=== PATIENT | male | born 1950 | race Caucasian/White ===

== ENCOUNTER 2018-02-01 10:30 | Inpatient (IN) | payer MEDICARE, MEDICAID ==
[~2018-02-01] VITALS: Ht 182.9 cm; Wt 79.3 kg
[2018-02-01 11:18] LABS: BASO # 0.1 x10^3/uL (0.0-0.2); BASO % 1 % (0-3); EOS # 0.6 x10^3/uL (0.0-0.7); EOS % 10 % (0-3); HEMATOCRIT 39.7 % (39.0-53.0); HEMOGLOBIN 13.1 g/dL (13.0-17.5); LYMPH # 2.1 x10^3/uL (1.0-4.8); LYMPH % 33 % (24-48); MEAN CORPUSCULAR HEMOGLOBIN 31 pg (25-35); MEAN CORPUSCULAR HGB CONC 33 g/dL (31-37); MEAN CORPUSCULAR VOLUME 94 fL (79-100); MONO # 0.9 x10^3/uL (0.0-1.1); MONO % 14 % (0-9); NEUT # 2.8 x10^3uL (1.8-7.7); NEUT % 43 % (31-73); PLATELET COUNT 167 x10^3/uL (140-400); RED BLOOD COUNT 4.22 x10^6/uL (4.30-5.70); RED CELL DISTRIBUTION WIDTH 13.4 % (11.5-14.5); WHITE BLOOD COUNT 6.6 x10^3/uL (4.0-11.0)
[2018-02-01 11:23] LABS: ALBUMIN 3.4 g/dL (3.4-5.0); CALCIUM 8.9 mg/dL (8.5-10.1); CREATININE 1.2 mg/dL (0.7-1.3); GFR 60.2; MAGNESIUM 2.3 mg/dL (1.8-2.4); POTASSIUM 4.2 mmol/L (3.5-5.1); TOTAL BILIRUBIN 0.3 mg/dL (0.2-1.0); TOTAL PROTEIN 6.7 g/dL (6.4-8.2)
[2018-02-01 11:32] LABS: AMORPHOUS SEDIMENT,UR PRESENT /HPF; BACTERIA,URINE 0 /HPF (0-FEW); BILIRUBIN,URINE NEG (NEG); CLARITY,URINE CLEAR; COLOR,URINE AMBER; GLUCOSE,URINE NEG (NEG); NITRITE,URINE NEG (NEG); RBC,URINE 0 /HPF (0-2); SQUAMOUS EPITHELIAL CELL,UR OCC /LPF; UROBILINOGEN,URINE 1 mg/dL (0.2 mg/dL); WBC,URINE 0 /HPF (0-4)
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
[2018-02-01] MEDS ORDERED: MAGNESIUM HYDROXIDE 2,400 MG/30 ML ORAL.SUSP. PO PRN (12:15)
[2018-02-01] MEDS ORDERED: ACETAMINOPHEN 325 MG TABLET PO PRN (12:15)
[2018-02-01] MEDS ORDERED: METHYL SALICYLATE/MENTHOL TOPICAL OINTMENT 29GM TUBE. TP PRN (12:15)
[2018-02-01] MEDS ORDERED: MAG HYDROX/AL HYDROX/SIMETH 30 ML ORAL.SUSP PO PRN (12:15)
[2018-02-01] MEDS ORDERED: LOXA10CA PO (13:03)
[2018-02-01] MEDS ORDERED: ASPI325T8 PO (13:03)
[2018-02-01] MEDS ORDERED: HALO5AMP2 IM (13:03)
[2018-02-01] MEDS ORDERED: LORA2VIA6 IM (13:03)
[2018-02-01] MEDS ORDERED: DOCU100C28 PO (13:03)
[2018-02-01] MEDS ORDERED: LORA-254 PO (13:03)
[2018-02-01] MEDS ORDERED: METO25TA4 PO (13:03)
[2018-02-01] MEDS ORDERED: CLON0.1T PO (13:03)
[2018-02-01] MEDS ORDERED: TRAZ-86 PO (13:03)
[2018-02-01] MEDS ORDERED: THIA100T8 PO (13:03)
[2018-02-01] MEDS ORDERED: MULT1TAB52 PO (13:03)
[2018-02-01] MEDS ORDERED: DIVA500T17 PO ×2 (13:03)
[2018-02-01] MEDS ORDERED: LEVO25TA4 PO (13:03)
[2018-02-01] MEDS ORDERED: NICO1PAT25 TD (13:03)
[2018-02-01] MEDS ORDERED: FLUD0.1T PO (13:03)
[2018-02-01 13:18] VITALS: BP 133/85
[2018-02-01] MEDS ORDERED: LORazepam 0.5 MG TABLET PO PRN (13:30)
--- NOTE | 2018-02-01 13:59 | EKG ---
[address] [address] Test Date: 2018-02-01 Test Time: 10:43:01 Pat Name: HUANG SHARMA Department: Room: [facility] 1 Gender: M [employer] Cle[employer] Teacher: : 1950 Requested By: MEGHAN GOMEZ Order Number: [id number] Reading MD: Rojas Lund MD Measurements Intervals [place] Rate: 47 P: -41 [place]: 186 QRS: -34 QRSD: 90 T: 75 QT: 466 QTc: 412 Interpretive Statements SINUS BRADYCARDIA NON-SPECIFIC ST/T CHANGES Electronically Signed On 02-02-2018 10:44:33 CDT by Rojas Lund MD
[2018-02-01] MEDS: LOXAPINE SUCCINATE 5 MG CAPSULE PO SCH ×2 (15:42→20:15)
[2018-02-01 16:26] VITALS: BP 128/83
[2018-02-01] MEDS: METOPROLOL TART IMMED RELEASE 25 MG TABLET PO SCH (20:16)
[2018-02-01] MEDS: traZODone 100 MG TABLET. PO SCH (20:16)
[2018-02-01] MEDS: cloNIDine HCL 0.1 MG TABLET PO SCH (20:17)
[2018-02-01] MEDS ORDERED: DIVALPROEX ER 500 MG TAB.ER.24H PO SCH (21:00)
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
--- NOTE | 2018-02-01 23:18 | PDOC ---
Exam Note: Dionicio Note: Please also refer to the separate dictated note~for this date of service dictated separately.~Patient seen individually. Discussed the patient with Nursing staff reviewed the chart.~Reviewed interim history and current functioning. Reviewed vital signs,~Labs/ Radiology~and current medications noted below. Continue current treatment with the changes noted in the dictated addendum note Assessment: Vital Signs: Vital Signs Date Time Temp Pulse Resp B/P (MAP) Pulse Ox O2 Delivery O2 Flow Rate FiO2 02/01/18 20:17 58 128/83 02/01/18 16:26 98.1 16 97 02/01/18 11:52 Room Air Labs: Laboratory Tests Test 02/01/18 10:55 02/01/18 11:10 White Blood Count 6.6 x10^3/uL (4.0-11.0) Red Blood Count 4.22 x10^6/uL (4.30-5.70) L Hemoglobin 13.1 g/dL (13.0-17.5) Hematocrit 39.7 % (39.0-53.0) Mean Corpuscular Volume 94 fL (79-100) Mean Corpuscular Hemoglobin 31 pg (25-35) Mean Corpuscular Hemoglobin Concent 33 g/dL (31-37) Red Cell Distribution Width 13.4 % (11.5-14.5) Platelet Count 167 x10^3/uL (140-400) Neutrophils (%) (Auto) 43 % (31-73) Lymphocytes (%) (Auto) 33 % (24-48) Monocytes (%) (Auto) 14 % (0-9) H Eosinophils (%) (Auto) 10 % (0-3) H Basophils (%) (Auto) 1 % (0-3) Neutrophils # (Auto) 2.8 x10^3uL (1.8-7.7) Lymphocytes # (Auto) 2.1 x10^3/uL (1.0-4.8) Monocytes # (Auto) 0.9 x10^3/uL (0.0-1.1) Eosinophils # (Auto) 0.6 x10^3/uL (0.0-0.7) Basophils # (Auto) 0.1 x10^3/uL (0.0-0.2) Sodium Level 145 mmol/L (136-145) Potassium Level 4.2 mmol/L (3.5-5.1) Chloride Level 107 mmol/L (98-107) Carbon Dioxide Level 32 mmol/L (21-32) Anion Gap 6 (6-14) Blood Urea Nitrogen 31 mg/dL (8-26) H Creatinine 1.2 mg/dL (0.7-1.3) Estimated GFR (Cockcroft-Gault) 60.2 BUN/Creatinine Ratio 26 (6-20) H Glucose Level 84 mg/dL (70-99) Calcium Level 8.9 mg/dL (8.5-10.1) Magnesium Level 2.3 mg/dL (1.8-2.4) Total Bilirubin 0.3 mg/dL (0.2-1.0) Aspartate Amino Transferase (AST) 21 U/L (15-37) Alanine Aminotransferase (ALT) 20 U/L (16-63) Alkaline Phosphatase 49 U/L (46-116) Total Protein 6.7 g/dL (6.4-8.2) Albumin 3.4 g/dL (3.4-5.0) Albumin/Globulin Ratio 1.0 (1.0-1.7) Urine Collection Type Unknown Urine Color Irma Urine Clarity Clear Urine pH 7.0 Urine Specific [place] 1.020 Urine Protein Neg (NEG-TRACE) Urine Glucose (UA) Neg mg/dL (NEG) Urine Ketones (Stick) Neg mg/dL (NEG) Urine Blood Neg (NEG) Urine Nitrite Neg (NEG) Urine Bilirubin Neg (NEG) Urine Urobilinogen Dipstick 1 mg/dL (0.2 mg/dL) Urine Leukocyte Esterase Neg (NEG) Urine RBC 0 /HPF (0-2) Urine WBC 0 /HPF (0-4) Urine Squamous Epithelial Cells Occ /LPF Urine Amorphous Sediment Present /HPF Urine Bacteria 0 /HPF (0-FEW) Urine Mucus Slight /LPF Current Medications: Meds: Current Medications Acetaminophen (Tylenol) 650 mg PRN Q6HRS PRN PO PAIN / TEMP; Start 02/01/18 at 12:15 Multi-Ingredient Ointment (Analgesic [place]) 1 king PRN QID PRN TP MUSCLE PAIN; Start 02/01/18 at 12:15 Al Hydroxide/Mg Hydroxide (Mylanta Plus Xs) 15 ml PRN AFTMEALHC PRN PO DYSPEPSIA; Start 02/01/18 at 12:15 Magnesium Hydroxide (Milk Of Magnesia) 2,400 mg PRN QHS PRN PO CONSTIPATION; Start 02/01/18 at 12:15 Influenza Virus Vaccine (Afluria Trivalent [id number] Syringe) 0.5 ml ONCE ONCE VAX IM ; Start 02/02/18 at 09:00; Stop 02/02/18 at 09:01 Aspirin (Davi Aspirin) 325 mg DAILY PO ; Start 02/02/18 at 09:00 Clonidine HCl (Catapres) 0.1 mg QHS PO Last administered on 02/01/18at 20:17; Start 02/01/18 at 21:00 Fludrocortisone Acetate (Florinef) 0.1 mg DAILY PO ; Start 02/02/18 at 09:00 Lorazepam (Ativan) 0.5 mg PRN Q4HRS PRN PO ANXIETY / AGITATION; Start at 13:30 Metoprolol Tartrate (Lopressor) 25 mg BID PO Last administered on 02/01/18at 20 :16; Start 02/01/18 at 21:00 Divalproex Sodium (Depakote Er) 1,500 mg QHS PO Last administered on at 20:16; Start 02/01/18 at 21:00 Divalproex Sodium (Depakote Er) 750 mg DAILY PO ; Start 02/02/18 at 09:00 Docusate Sodium (Colace) 100 mg DAILY PO ; Start 02/02/18 at 09:00 Levothyroxine Sodium (Synthroid) 25 mcg DAILY06 PO ; Start 02/02/18 at 06:00 Loxapine Succinate (Loxitane) 10 mg TID PO Last administered on 02/01/18at 20: 15; Start 02/01/18 at 14:00 Nicotine (Nicoderm Cq 14mg) 1 patch DAILY TD ; Start 02/02/18 at 09:00 Thiamine HCl (Vitamin B-1) 100 mg DAILY PO ; Start 02/02/18 at 09:00 Trazodone HCl (Desyrel) 250 mg QHS PO Last administered on 02/01/18at 20:16; Start 02/01/18 at 21:00 Active Scripts Active Reported Haldol (Haloperidol Lactate) 5 Mg/1 Ml Ampul 5 Mg IM PRN Q6HRS PRN Docusate Sodium 100 Mg Capsule 100 Mg PO DAILY Trazodone Hcl 100 Mg Tablet 250 Mg PO QHS Loxapine (Loxapine Succinate) 10 Mg Capsule 10 Mg PO TID Ativan (Lorazepam) 1 Mg Tablet 0.5 Mg PO PRN Q4HRS PRN Ativan (Lorazepam) 2 Mg/1 Ml Vial 0.25 Ml IM PRN Q4HRS PRN Levothyroxine Sodium 25 Mcg Tablet 25 Mcg PO DAILYAC Divalproex Sodium Er (Divalproex Sodium) 500 Mg Tab.er.24h 1,500 Mg PO QHS Divalproex Sodium Er (Divalproex Sodium) 500 Mg Tab.er.24h 750 Mg PO DAILY Thiamine Hcl 100 Mg Tablet 100 Mg PO DAILY Multivitamins (Multivitamin) 1 Each Tablet 1 Each PO NICODERM CQ 14mg (Nicotine) 1 Each Patch.td24 1 Patch TD DAILY Metoprolol Tartrate 25 Mg Tablet 25 Mg PO BID Fludrocortisone Acetate 0.1 Mg Tablet 0.1 Mg PO DAILY Clonidine Hcl 0.1 Mg Tablet 0.1 Mg PO QHS Aspirin 325 Mg Tablet 325 Mg PO DAILY I have reviewed the current psychotropics carefully including drug interactions. Risk benefit ratio favors no change other than as noted in my dictated progress note. Diagnosis: Problems: (1) Sinus bradycardia (2) Anemia (3) Alcoholic dementia (4) Medical clearance for psychiatric admission AALIYAH MOORE MD Feb 01, 2018 23:18
[2018-02-02 06:12] VITALS: BP 143/79
[2018-02-02] MEDS: LEVOTHYROXINE 25 MCG TABLET. PO SCH (06:37)
[2018-02-02 07:13] LABS: VAL ACID 54 mcg/mL (50-100)
[2018-02-02] MEDS: METOPROLOL TART IMMED RELEASE 25 MG TABLET PO SCH ×2 (08:58→19:24)
[2018-02-02] MEDS: LOXAPINE SUCCINATE 5 MG CAPSULE PO SCH ×2 (08:58→19:25)
[2018-02-02] MEDS ORDERED: NICOTINE 14MG PATCH. TD SCH (09:00)
[2018-02-02] MEDS ORDERED: DIVALPROEX ER 250 MG TAB.ER.24H. PO SCH (09:00)
[2018-02-02] MEDS: DOCUSATE SODIUM 100 MG CAPSULE PO SCH (09:01)
[2018-02-02] MEDS: FLUDROCORTISONE 0.1 MG TABLET PO SCH (09:01)
[2018-02-02] MEDS: THIAMINE 100 MG TABLET. PO SCH (09:02)
[2018-02-02] MEDS: ASPIRIN 325 MG TABLET PO SCH (09:03)
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
[2018-02-02 13:23] LABS: THYROID STIM HORMONE (TSH) 3.207 uIU/mL (0.358-3.740)
[2018-02-02 16:07] VITALS: BP 144/79
[2018-02-02] MEDS: cloNIDine HCL 0.1 MG TABLET PO SCH (19:23)
[2018-02-02] MEDS: traZODone 100 MG TABLET. PO SCH (19:24)
[2018-02-02] MEDS: DIVALPROEX 125 MG CAP.SPRINK PO SCH (19:48)
[2018-02-02 20:08] LABS: THYROXINE 5.4 ug/dL (4.5-12.0)
[2018-02-02 21:12] LABS: HEMOGLOBIN A1C 5.9 % (4.8-5.6)
--- NOTE | 2018-02-02 23:35 | PDOC ---
Exam Note: Dionicio Note: Please also refer to the separate dictated note~for this date of service dictated separately.~Patient seen individually. Discussed the patient with Nursing staff reviewed the chart.~Reviewed interim history and current functioning. Reviewed vital signs,~Labs/ Radiology~and current medications noted below. Continue current treatment with the changes noted in the dictated addendum note Assessment: Vital Signs: Vital Signs Date Time Temp Pulse Resp B/P (MAP) Pulse Ox O2 Delivery O2 Flow Rate FiO2 02/02/18 19:24 70 144/79 02/02/18 16:07 97.1 16 96 02/01/18 11:52 Room Air I&O Intake and Output 02/02/18 07:00 Intake Total 240 ml Balance 240 ml Intake Oral 240 ml Labs: Laboratory Tests Test 02/02/18 06:22 Hemoglobin A1c 5.9 % (4.8-5.6) H Magnesium Level 2.1 mg/dL (1.8-2.4) Iron Level 76 ug/dL (65-175) Total Iron Binding Capacity 260 ug/dL (250-450) Iron Saturation 29 % (15-34) Triglycerides Level 75 mg/dL (0-150) Cholesterol Level 167 mg/dL (0-200) LDL Cholesterol, Calculated 110 mg/dL (0-100) H VLDL Cholesterol, Calculated 15 mg/dL (0-40) Non-HDL Cholesterol Calculated 125 mg/dL (0-129) HDL Cholesterol 42 mg/dL (40-60) Cholesterol/HDL Ratio 3.0 Vitamin B12 Level 414 pg/mL (247-911) 25-Hydroxy Vitamin D Total 38.7 ng/mL (30-100) Thyroid Stimulating Hormone (TSH) 3.207 uIU/mL (0.358-3.740) Thyroxine (T4) 5.4 ug/dL (4.5-12.0) Total Triiodothyronine (TT3) 75 ng/dL (71-180) Valproic Acid Level 54 mcg/mL (50-100) Valproic Acid Last Dose Date 02/01/18 Valproic Acid Last Dose Time 2100 Treponema pallidum Antibody Nonreactive (Nonreactive) Current Medications: Meds: Current Medications Acetaminophen (Tylenol) 650 mg PRN Q6HRS PRN PO PAIN / TEMP; Start 02/01/18 at 12:15 Multi-Ingredient Ointment (Analgesic [place]) 1 king PRN QID PRN TP MUSCLE PAIN; Start 02/01/18 at 12:15 Al Hydroxide/Mg Hydroxide (Mylanta Plus Xs) 15 ml PRN AFTMEALHC PRN PO DYSPEPSIA; Start 02/01/18 at 12:15 Magnesium Hydroxide (Milk Of Magnesia) 2,400 mg PRN QHS PRN PO CONSTIPATION; Start 02/01/18 at 12:15 Influenza Virus Vaccine (Afluria Trivalent [id number] Syringe) 0.5 ml ONCE ONCE VAX IM Last administered on 02/02/18at 10:11; Start 02/02/18 at 09:00; Stop 02/02/18 at 09:01; Status DC Aspirin (Davi Aspirin) 325 mg DAILY PO Last administered on 02/02/18at 09:03; Start 02/02/18 at 09:00 Clonidine HCl (Catapres) 0.1 mg QHS PO Last administered on 02/02/18at 19:23; Start 02/01/18 at 21:00 Fludrocortisone Acetate (Florinef) 0.1 mg DAILY PO Last administered on at 09:01; Start 02/02/18 at 09:00 Lorazepam (Ativan) 0.5 mg PRN Q4HRS PRN PO ANXIETY / AGITATION Last administered on 02/02/18at 21:32; Start 02/01/18 at 13:30 Metoprolol Tartrate (Lopressor) 25 mg BID PO Last administered on 02/02/18at 19 :24; Start 02/01/18 at 21:00 Divalproex Sodium (Depakote Er) 1,500 mg QHS PO Last administered on at 20:16; Start 02/01/18 at 21:00; Stop 02/02/18 at 18:01; Status DC Divalproex Sodium (Depakote Er) 750 mg DAILY PO Last administered on at 09:02; Start 02/02/18 at 09:00; Stop 02/02/18 at 18:01; Status DC Docusate Sodium (Colace) 100 mg DAILY PO Last administered on 02/02/18at 09:01 ; Start 02/02/18 at 09:00 Levothyroxine Sodium (Synthroid) 25 mcg DAILY06 PO Last administered on at 06:37; Start 02/02/18 at 06:00 Loxapine Succinate (Loxitane) 10 mg TID PO Last administered on 02/02/18at 08: 58; Start 02/01/18 at 14:00; Stop 02/02/18 at 11:12; Status DC Nicotine (Nicoderm Cq 14mg) 1 patch DAILY TD ; Start 02/02/18 at 09:00; Stop 02/02/18 at 18:01; Status DC Thiamine HCl (Vitamin B-1) 100 mg DAILY PO Last administered on 02/02/18at 09: 02; Start 02/02/18 at 09:00 Trazodone HCl (Desyrel) 250 mg QHS PO Last administered on 02/02/18at 19:24; Start 02/01/18 at 21:00 Loxapine Succinate (Loxitane) 10 mg BID PO Last administered on 02/02/18at 19: 25; Start 02/02/18 at 21:00 Sertraline HCl (Zoloft) 50 mg DAILY PO ; Start 02/03/18 at 09:00 Divalproex Sodium (Depakote Sprinkles) 750 mg TID@0900,1300,2100 PO Last administered on 02/02/18at 19:48; Start 02/02/18 at 21:00 Active Scripts Active Reported Haldol (Haloperidol Lactate) 5 Mg/1 Ml Ampul 5 Mg IM PRN Q6HRS PRN Docusate Sodium 100 Mg Capsule 100 Mg PO DAILY Trazodone Hcl 100 Mg Tablet 250 Mg PO QHS Loxapine (Loxapine Succinate) 10 Mg Capsule 10 Mg PO TID Ativan (Lorazepam) 1 Mg Tablet 0.5 Mg PO PRN Q4HRS PRN Ativan (Lorazepam) 2 Mg/1 Ml Vial 0.25 Ml IM PRN Q4HRS PRN Levothyroxine Sodium 25 Mcg Tablet 25 Mcg PO DAILYAC Divalproex Sodium Er (Divalproex Sodium) 500 Mg Tab.er.24h 1,500 Mg PO QHS Divalproex Sodium Er (Divalproex Sodium) 500 Mg Tab.er.24h 750 Mg PO DAILY Thiamine Hcl 100 Mg Tablet 100 Mg PO DAILY Multivitamins (Multivitamin) 1 Each Tablet 1 Each PO NICODERM CQ 14mg (Nicotine) 1 Each Patch.td24 1 Patch TD DAILY Metoprolol Tartrate 25 Mg Tablet 25 Mg PO BID Fludrocortisone Acetate 0.1 Mg Tablet 0.1 Mg PO DAILY Clonidine Hcl 0.1 Mg Tablet 0.1 Mg PO QHS Aspirin 325 Mg Tablet 325 Mg PO DAILY I have reviewed the current psychotropics carefully including drug interactions. Risk benefit ratio favors no change other than as noted in my dictated progress note. 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
[2018-02-03] MEDS: LEVOTHYROXINE 25 MCG TABLET. PO SCH (06:05)
[2018-02-03 06:17] VITALS: BP 153/85
[2018-02-03 06:21] VITALS: BP 153/85
[2018-02-03] MEDS: LOXAPINE SUCCINATE 5 MG CAPSULE PO SCH ×2 (07:48→19:24)
[2018-02-03] MEDS: FLUDROCORTISONE 0.1 MG TABLET PO SCH (07:48)
[2018-02-03] MEDS: DOCUSATE SODIUM 100 MG CAPSULE PO SCH (07:48)
[2018-02-03] MEDS: ASPIRIN 325 MG TABLET PO SCH (07:50)
[2018-02-03] MEDS: METOPROLOL TART IMMED RELEASE 25 MG TABLET PO SCH ×2 (07:50→19:24)
[2018-02-03] MEDS: THIAMINE 100 MG TABLET. PO SCH (07:50)
[2018-02-03] MEDS: DIVALPROEX 125 MG CAP.SPRINK PO SCH ×3 (07:50→19:23)
[2018-02-03] MEDS: SERTRALINE 50 MG TABLET. PO SCH (07:52)
[2018-02-03 15:52] VITALS: BP 159/87
[2018-02-03] MEDS: traZODone 100 MG TABLET. PO SCH (19:23)
[2018-02-03] MEDS: cloNIDine HCL 0.1 MG TABLET PO SCH (19:23)
--- NOTE | 2018-02-03 23:02 | PN ---
DATE: 02/02/2018 PSYCHIATRIC PROGRESS NOTE This late entry 02/02/2018 covers elements not covered in my initial note. SUBJECTIVE: I met with the patient in the evening and staffed at a treatment team meeting with the entire team in the morning. Reviewed the patient's history and circumstances prompting admission. The patient slept 6-3/4 hours previous night. He has a shuffling gait and seems to wander around the unit. He is on Loxitane 10 mg t.i.d. and seemed to have some extrapyramidal symptoms and cogwheel rigidity. Previous night, he told the evening or night nurse supervisor to "shorter." He also has difficulty swallowing and he is on Depakote delayed release 750 in the morning and 1500 at night. Valproic acid level is 54. We will change it to Sprinkles 750 mg 3 times a day. We will also stop the nicotine patch since he has not smoked for about 1 year. REVIEW OF SYSTEMS: No CV, , pulmonary, eye, ENT system symptoms on review. MENTAL STATUS EXAM: Oriented to herself. Insight, judgment, recent and remote memory, attention, concentration, fund of knowledge poor, consistent with his diagnosis. IMPRESSION: Major neurocognitive disorder, Alzheimer, vascular with delusion, depression, behavioral disturbance; anxiety disorder, unspecified; impulse control disorder, unspecified. PLAN: Continue current psychotropics other than changes noted above. We will also start the patient on Zoloft 50 mg a day as an antidepressant and antianxiety agent. Further changes as clinically indicated. AALIYAH MOORE MD DR: OZZY/leah JOB#: [id number] / [id number]
--- NOTE | 2018-02-03 23:16 | PDOC ---
Exam Note: Dionicio Note: Please also refer to the separate dictated note~for this date of service dictated separately.~Patient seen individually. Discussed the patient with Nursing staff reviewed the chart.~Reviewed interim history and current functioning. Reviewed vital signs,~Labs/ Radiology~and current medications noted below. Continue current treatment with the changes noted in the dictated addendum note Assessment: Vital Signs: Vital Signs Date Time Temp Pulse Resp B/P (MAP) Pulse Ox O2 Delivery O2 Flow Rate FiO2 02/03/18 19:24 56 159/87 02/03/18 15:52 97.0 20 96 Room Air I&O Intake and Output 02/03/18 07:00 Intake Total 560 ml Balance 560 ml Intake Oral 560 ml # Voids 2 # Bowel Movements 2 Current Medications: Meds: Current Medications Acetaminophen (Tylenol) 650 mg PRN Q6HRS PRN PO PAIN / TEMP; Start 02/01/18 at 12:15 Multi-Ingredient Ointment (Analgesic [place]) 1 king PRN QID PRN TP MUSCLE PAIN; Start 02/01/18 at 12:15 Al Hydroxide/Mg Hydroxide (Mylanta Plus Xs) 15 ml PRN AFTMEALHC PRN PO DYSPEPSIA; Start 02/01/18 at 12:15 Magnesium Hydroxide (Milk Of Magnesia) 2,400 mg PRN QHS PRN PO CONSTIPATION; Start 02/01/18 at 12:15 Influenza Virus Vaccine (Afluria Trivalent [id number] Syringe) 0.5 ml ONCE ONCE VAX IM Last administered on 02/02/18at 10:11; Start 02/02/18 at 09:00; Stop 02/02/18 at 09:01; Status DC Aspirin (Davi Aspirin) 325 mg DAILY PO Last administered on 02/03/18at 07:50; Start 02/02/18 at 09:00 Clonidine HCl (Catapres) 0.1 mg QHS PO Last administered on 02/03/18at 19:23; Start 02/01/18 at 21:00 Fludrocortisone Acetate (Florinef) 0.1 mg DAILY PO Last administered on at 07:48; Start 02/02/18 at 09:00 Lorazepam (Ativan) 0.5 mg PRN Q4HRS PRN PO ANXIETY / AGITATION Last administered on 02/02/18at 21:32; Start 02/01/18 at 13:30 Metoprolol Tartrate (Lopressor) 25 mg BID PO Last administered on 02/03/18at 19 :24; Start 02/01/18 at 21:00 Divalproex Sodium (Depakote Er) 1,500 mg QHS PO Last administered on at 20:16; Start 02/01/18 at 21:00; Stop 02/02/18 at 18:01; Status DC Divalproex Sodium (Depakote Er) 750 mg DAILY PO Last administered on at 09:02; Start 02/02/18 at 09:00; Stop 02/02/18 at 18:01; Status DC Docusate Sodium (Colace) 100 mg DAILY PO Last administered on 02/03/18at 07:48 ; Start 02/02/18 at 09:00 Levothyroxine Sodium (Synthroid) 25 mcg DAILY06 PO Last administered on at 06:05; Start 02/02/18 at 06:00 Loxapine Succinate (Loxitane) 10 mg TID PO Last administered on 02/02/18at 08: 58; Start 02/01/18 at 14:00; Stop 02/02/18 at 11:12; Status DC Nicotine (Nicoderm Cq 14mg) 1 patch DAILY TD ; Start 02/02/18 at 09:00; Stop 02/02/18 at 18:01; Status DC Thiamine HCl (Vitamin B-1) 100 mg DAILY PO Last administered on 02/03/18at 07: 50; Start 02/02/18 at 09:00 Trazodone HCl (Desyrel) 250 mg QHS PO Last administered on 02/03/18at 19:23; Start 02/01/18 at 21:00 Loxapine Succinate (Loxitane) 10 mg BID PO Last administered on 02/03/18at 19: 24; Start 02/02/18 at 21:00; Stop 02/04/18 at 08:00 Sertraline HCl (Zoloft) 50 mg DAILY PO Last administered on 02/03/18at 07:52; Start 02/03/18 at 09:00 Divalproex Sodium (Depakote Sprinkles) 750 mg TID@0900,1300,2100 PO Last administered on 02/03/18at 19:23; Start 02/02/18 at 21:00 Active Scripts Active Reported Haldol (Haloperidol Lactate) 5 Mg/1 Ml Ampul 5 Mg IM PRN Q6HRS PRN Docusate Sodium 100 Mg Capsule 100 Mg PO DAILY Trazodone Hcl 100 Mg Tablet 250 Mg PO QHS Loxapine (Loxapine Succinate) 10 Mg Capsule 10 Mg PO TID Ativan (Lorazepam) 1 Mg Tablet 0.5 Mg PO PRN Q4HRS PRN Ativan (Lorazepam) 2 Mg/1 Ml Vial 0.25 Ml IM PRN Q4HRS PRN Levothyroxine Sodium 25 Mcg Tablet 25 Mcg PO DAILYAC Divalproex Sodium Er (Divalproex Sodium) 500 Mg Tab.er.24h 1,500 Mg PO QHS Divalproex Sodium Er (Divalproex Sodium) 500 Mg Tab.er.24h 750 Mg PO DAILY Thiamine Hcl 100 Mg Tablet 100 Mg PO DAILY Multivitamins (Multivitamin) 1 Each Tablet 1 Each PO NICODERM CQ 14mg (Nicotine) 1 Each Patch.td24 1 Patch TD DAILY Metoprolol Tartrate 25 Mg Tablet 25 Mg PO BID Fludrocortisone Acetate 0.1 Mg Tablet 0.1 Mg PO DAILY Clonidine Hcl 0.1 Mg Tablet 0.1 Mg PO QHS Aspirin 325 Mg Tablet 325 Mg PO DAILY I have reviewed the current psychotropics carefully including drug interactions. Risk benefit ratio favors no change other than as noted in my dictated progress note. 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
[2018-02-04] MEDS: LEVOTHYROXINE 25 MCG TABLET. PO SCH (06:22)
[2018-02-04 06:29] VITALS: BP_SYST 165; BP_DIAS 6; BP_DIAS 76
[2018-02-04] MEDS: ASPIRIN 325 MG TABLET PO SCH (08:20)
[2018-02-04] MEDS: DOCUSATE SODIUM 100 MG CAPSULE PO SCH (08:21)
[2018-02-04] MEDS: DIVALPROEX 125 MG CAP.SPRINK PO SCH ×3 (08:21→20:52)
[2018-02-04] MEDS: THIAMINE 100 MG TABLET. PO SCH (08:23)
[2018-02-04] MEDS: METOPROLOL TART IMMED RELEASE 25 MG TABLET PO SCH ×2 (08:23→20:52)
[2018-02-04] MEDS: FLUDROCORTISONE 0.1 MG TABLET PO SCH (08:23)
[2018-02-04] MEDS: SERTRALINE 50 MG TABLET. PO SCH (08:24)
[2018-02-04 15:58] VITALS: BP 137/80
[2018-02-04] MEDS: traZODone 100 MG TABLET. PO SCH (20:52)
[2018-02-04] MEDS: cloNIDine HCL 0.1 MG TABLET PO SCH (20:52)
--- NOTE | 2018-02-05 01:23 | PN ---
DATE: 02/04/2018 SUBJECTIVE: The patient was seen today, met with the staff, chart reviewed. Staff reports no major problems, noncommunicative most of the time on wheelchair. According to staff, he has been compliant with the treatment. OBSERVATION: VITAL SIGNS: Temperature 98.27, blood pressure 165/76, pulse 51, respirations 18, O2 sat 94%. The patient slept about 6 hours last night. The patient's appetite is fair. The patient is needing assistance with ADLs. MEDICATIONS: The patient's current medications include Zoloft 50 mg daily, Depakote 750 mg at night. The patient's lab reviewed, which were all within the normal range except for hyperlipidemia. Hemoglobin A1c is 5.9. BUN was 31. ASSESSMENT: ____ DICTATION ENDS HERE SERGIO HOLLINGSWORTH MD DR: RACHEL/leah JOB#: [id number] / [id number]
[2018-02-05] MEDS: LEVOTHYROXINE 25 MCG TABLET. PO SCH (05:59)
[2018-02-05 06:17] VITALS: BP 134/80
[2018-02-05] MEDS: ASPIRIN 325 MG TABLET PO SCH (07:30)
[2018-02-05] MEDS: DOCUSATE SODIUM 100 MG CAPSULE PO SCH (07:30)
[2018-02-05] MEDS: THIAMINE 100 MG TABLET. PO SCH (07:31)
[2018-02-05] MEDS: DIVALPROEX 125 MG CAP.SPRINK PO SCH ×3 (07:31→22:14)
[2018-02-05] MEDS: METOPROLOL TART IMMED RELEASE 25 MG TABLET PO SCH ×2 (07:31→22:13)
[2018-02-05] MEDS: SERTRALINE 50 MG TABLET. PO SCH (07:32)
[2018-02-05] MEDS: FLUDROCORTISONE 0.1 MG TABLET PO SCH (07:32)
[2018-02-05 16:23] VITALS: BP 113/76
[2018-02-05] MEDS: cloNIDine HCL 0.1 MG TABLET PO SCH (22:13)
[2018-02-05] MEDS: traZODone 100 MG TABLET. PO SCH (22:13)
--- NOTE | 2018-02-06 04:04 | PN ---
DATE: 02/03/2018 PSYCHIATRIC PROGRESS NOTE This late entry 02/03/2018 covers elements not covered in my initial note. SUBJECTIVE: I met with the patient in the morning. The patient slept 6 hours previous evening. Previous night, he spit out his psychotropics. He continues to have some cogwheel rigidity and gait disturbance, possibly contributed by Loxitane, which we have since reduced. REVIEW OF SYSTEMS: No CV, , pulmonary, eye, ENT system symptoms on review. Reliability poor. MENTAL STATUS EXAMINATION: Oriented to himself. Insight, judgment, recent and remote memory, attention, concentration, fund of knowledge poor, consistent with his diagnosis mentioned in my initial note. PLAN: Stop the Loxitane on 02/04/2018. Continue rest of the psychotropics including Depakote. Valproic acid level therapeutic at 54, Ativan IM has been stopped. Continue trazodone and Zoloft. AALIYAH MOORE MD DR: OZZY/leah JOB#: [id number] / [id number]
[2018-02-06] MEDS: LEVOTHYROXINE 25 MCG TABLET. PO SCH (05:58)
[2018-02-06 06:13] VITALS: BP 163/72
[2018-02-06] MEDS: ASPIRIN 325 MG TABLET PO SCH (07:25)
[2018-02-06] MEDS: SERTRALINE 50 MG TABLET. PO SCH (07:26)
[2018-02-06] MEDS: METOPROLOL TART IMMED RELEASE 25 MG TABLET PO SCH ×2 (07:26→20:59)
[2018-02-06] MEDS: DIVALPROEX 125 MG CAP.SPRINK PO SCH ×3 (07:26→21:00)
[2018-02-06] MEDS: DOCUSATE SODIUM 100 MG CAPSULE PO SCH (07:26)
[2018-02-06] MEDS: FLUDROCORTISONE 0.1 MG TABLET PO SCH (07:34)
[2018-02-06] MEDS: THIAMINE 100 MG TABLET. PO SCH (07:35)
[2018-02-06 16:25] VITALS: BP 113/72
[2018-02-06] MEDS: cloNIDine HCL 0.1 MG TABLET PO SCH (20:59)
[2018-02-06] MEDS: traZODone 100 MG TABLET. PO SCH (21:00)
--- NOTE | 2018-02-06 23:17 | PDOC ---
Exam Note: Dionicio Note: Please also refer to the separate dictated note~for this date of service dictated separately.~Patient seen individually. Discussed the patient with Nursing staff reviewed the chart.~Reviewed interim history and current functioning. Reviewed vital signs,~Labs/ Radiology~and current medications noted below. Continue current treatment with the changes noted in the dictated addendum note Assessment: Vital Signs: Vital Signs Date Time Temp Pulse Resp B/P (MAP) Pulse Ox O2 Delivery O2 Flow Rate FiO2 02/06/18 20:59 72 113/72 02/06/18 16:25 97.5 16 96 Room Air I&O Intake and Output 02/06/18 07:00 Intake Total 600 ml Balance 600 ml Intake Oral 600 ml # Voids 1 Current Medications: Meds: Current Medications Acetaminophen (Tylenol) 650 mg PRN Q6HRS PRN PO PAIN / TEMP; Start 02/01/18 at 12:15 Multi-Ingredient Ointment (Analgesic [place]) 1 king PRN QID PRN TP MUSCLE PAIN; Start 02/01/18 at 12:15 Al Hydroxide/Mg Hydroxide (Mylanta Plus Xs) 15 ml PRN AFTMEALHC PRN PO DYSPEPSIA; Start 02/01/18 at 12:15 Magnesium Hydroxide (Milk Of Magnesia) 2,400 mg PRN QHS PRN PO CONSTIPATION; Start 02/01/18 at 12:15 Influenza Virus Vaccine (Afluria Trivalent [id number] Syringe) 0.5 ml ONCE ONCE VAX IM Last administered on 02/02/18at 10:11; Start 02/02/18 at 09:00; Stop 02/02/18 at 09:01; Status DC Aspirin (Davi Aspirin) 325 mg DAILY PO Last administered on 02/06/18at 07:25; Start 02/02/18 at 09:00 Clonidine HCl (Catapres) 0.1 mg QHS PO Last administered on 02/06/18at 20:59; Start 02/01/18 at 21:00 Fludrocortisone Acetate (Florinef) 0.1 mg DAILY PO Last administered on at 07:34; Start 02/02/18 at 09:00 Lorazepam (Ativan) 0.5 mg PRN Q4HRS PRN PO ANXIETY / AGITATION Last administered on 02/02/18at 21:32; Start 02/01/18 at 13:30; Stop 02/06/18 at 18 :59; Status DC Metoprolol Tartrate (Lopressor) 25 mg BID PO Last administered on 02/06/18at 20 :59; Start 02/01/18 at 21:00 Divalproex Sodium (Depakote Er) 1,500 mg QHS PO Last administered on at 20:16; Start 02/01/18 at 21:00; Stop 02/02/18 at 18:01; Status DC Divalproex Sodium (Depakote Er) 750 mg DAILY PO Last administered on at 09:02; Start 02/02/18 at 09:00; Stop 02/02/18 at 18:01; Status DC Docusate Sodium (Colace) 100 mg DAILY PO Last administered on 02/06/18at 07:26 ; Start 02/02/18 at 09:00 Levothyroxine Sodium (Synthroid) 25 mcg DAILY06 PO Last administered on at 05:58; Start 02/02/18 at 06:00 Loxapine Succinate (Loxitane) 10 mg TID PO Last administered on 02/02/18at 08: 58; Start 02/01/18 at 14:00; Stop 02/02/18 at 11:12; Status DC Nicotine (Nicoderm Cq 14mg) 1 patch DAILY TD ; Start 02/02/18 at 09:00; Stop 02/02/18 at 18:01; Status DC Thiamine HCl (Vitamin B-1) 100 mg DAILY PO Last administered on 02/06/18at 07: 35; Start 02/02/18 at 09:00 Trazodone HCl (Desyrel) 250 mg QHS PO Last administered on 02/06/18at 21:00; Start 02/01/18 at 21:00 Loxapine Succinate (Loxitane) 10 mg BID PO Last administered on 02/03/18at 19: 24; Start 02/02/18 at 21:00; Stop 02/04/18 at 08:00; Status DC Sertraline HCl (Zoloft) 50 mg DAILY PO Last administered on 02/06/18at 07:26; Start 02/03/18 at 09:00; Stop 02/06/18 at 17:54; Status DC Divalproex Sodium (Depakote Sprinkles) 750 mg TID@0900,1300,2100 PO Last administered on 02/06/18at 21:00; Start 02/02/18 at 21:00 Sertraline HCl (Zoloft) 75 mg DAILY PO ; Start 02/07/18 at 09:00 Active Scripts Active Reported Haldol (Haloperidol Lactate) 5 Mg/1 Ml Ampul 5 Mg IM PRN Q6HRS PRN Docusate Sodium 100 Mg Capsule 100 Mg PO DAILY Trazodone Hcl 100 Mg Tablet 250 Mg PO QHS Loxapine (Loxapine Succinate) 10 Mg Capsule 10 Mg PO TID Ativan (Lorazepam) 1 Mg Tablet 0.5 Mg PO PRN Q4HRS PRN Ativan (Lorazepam) 2 Mg/1 Ml Vial 0.25 Ml IM PRN Q4HRS PRN Levothyroxine Sodium 25 Mcg Tablet 25 Mcg PO DAILYAC Divalproex Sodium Er (Divalproex Sodium) 500 Mg Tab.er.24h 1,500 Mg PO QHS Divalproex Sodium Er (Divalproex Sodium) 500 Mg Tab.er.24h 750 Mg PO DAILY Thiamine Hcl 100 Mg Tablet 100 Mg PO DAILY Multivitamins (Multivitamin) 1 Each Tablet 1 Each PO NICODERM CQ 14mg (Nicotine) 1 Each Patch.td24 1 Patch TD DAILY Metoprolol Tartrate 25 Mg Tablet 25 Mg PO BID Fludrocortisone Acetate 0.1 Mg Tablet 0.1 Mg PO DAILY Clonidine Hcl 0.1 Mg Tablet 0.1 Mg PO QHS Aspirin 325 Mg Tablet 325 Mg PO DAILY I have reviewed the current psychotropics carefully including drug interactions. Risk benefit ratio favors no change other than as noted in my dictated progress note. 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
[2018-02-07 05:33] VITALS: BP 121/74
[2018-02-07] MEDS: LEVOTHYROXINE 25 MCG TABLET. PO SCH (06:28)
[2018-02-07] MEDS: ASPIRIN 325 MG TABLET PO SCH (08:23)
[2018-02-07] MEDS: DOCUSATE SODIUM 100 MG CAPSULE PO SCH (08:24)
[2018-02-07] MEDS: FLUDROCORTISONE 0.1 MG TABLET PO SCH (08:24)
[2018-02-07] MEDS: METOPROLOL TART IMMED RELEASE 25 MG TABLET PO SCH ×2 (08:25→19:29)
[2018-02-07] MEDS: THIAMINE 100 MG TABLET. PO SCH (08:25)
[2018-02-07] MEDS: SERTRALINE 50 MG TABLET. PO SCH (08:28)
[2018-02-07] MEDS: DIVALPROEX 125 MG CAP.SPRINK PO SCH ×3 (08:33→19:28)
[2018-02-07 16:02] VITALS: BP 107/80
[2018-02-07] MEDS: cloNIDine HCL 0.1 MG TABLET PO SCH (19:28)
[2018-02-07] MEDS: traZODone 100 MG TABLET. PO SCH (19:28)
[2018-02-08 06:02] VITALS: BP 120/60
[2018-02-08] MEDS: LEVOTHYROXINE 25 MCG TABLET. PO SCH (06:20)
[2018-02-08] MEDS: DIVALPROEX 125 MG CAP.SPRINK PO SCH ×3 (07:43→20:13)
[2018-02-08] MEDS: DOCUSATE SODIUM 100 MG CAPSULE PO SCH (07:43)
[2018-02-08] MEDS: ASPIRIN 325 MG TABLET PO SCH (07:43)
[2018-02-08] MEDS: FLUDROCORTISONE 0.1 MG TABLET PO SCH (07:45)
[2018-02-08] MEDS: METOPROLOL TART IMMED RELEASE 25 MG TABLET PO SCH ×2 (07:46→20:13)
[2018-02-08] MEDS: THIAMINE 100 MG TABLET. PO SCH (07:46)
[2018-02-08] MEDS: SERTRALINE 50 MG TABLET. PO SCH (07:46)
[2018-02-08 16:05] VITALS: BP 103/67
--- NOTE | 2018-02-08 16:08 | PN ---
DATE: 02/06/2018 PSYCHIATRIC PROGRESS NOTE This late entry 02/06/2018 covers elements, not covered in my initial note. SUBJECTIVE: I met with the patient in the evening. The patient slept 6-1/2 hours previous night. Remains confused, wandering, oblivious the way he is. Compliant with his medications. We have gone ahead and stopped the Loxitane. REVIEW OF SYSTEMS: No eye, ENT, CV, , pulmonary system symptoms on review. Reliability poor. MENTAL STATUS EXAM: Oriented to himself. Insight, judgment, recent and remote memory, attention, concentration, fund of knowledge poor, consistent with his diagnosis. IMPRESSION: Major neurocognitive disorder, multifactorial, alcohol, Alzheimer's with delusion, depression, behavioral disturbance; anxiety disorder, unspecified. Rest unchanged. PLAN: Increase Zoloft from 50 mg a day to 75 mg a day. Continue Depakote at current dosage, trazodone 25 mg at bedtime. Valproic acid level therapeutic at 54. MAN Margy MOORE MD DR: OZZY/leah JOB#: [id number] / [id number]
[2018-02-08] MEDS: cloNIDine HCL 0.1 MG TABLET PO SCH (20:12)
[2018-02-08] MEDS: traZODone 100 MG TABLET. PO SCH (20:13)
--- NOTE | 2018-02-08 21:13 | PDOC ---
Exam Note: [facility] Note: Late entry for DOS 02/07/2018. Please also refer to the separate dictated note~ for this date of service dictated separately.~Patient seen individually. Discussed the patient with Nursing staff reviewed the chart.~Reviewed interim history and current functioning. Reviewed vital signs,~Labs/ Radiology~and current medications noted below. Continue current treatment with the changes noted in the dictated addendum note Assessment: Vital Signs: VS - Last 72 Hours, by Label Date Time Temp Pulse Resp B/P (MAP) Pulse Ox O2 Delivery O2 Flow Rate FiO2 02/08/18 20:13 72 103/67 02/08/18 20:12 72 103/67 02/08/18 16:05 98.3 72 18 103/67 (79) 94 02/08/18 07:46 54 120/60 02/08/18 06:02 97.2 54 16 120/60 (80) 92 02/07/18 19:29 53 107/80 02/07/18 19:28 53 107/80 02/07/18 16:02 97.2 53 20 107/80 (89) 94 Room Air 02/07/18 08:25 55 121/74 02/07/18 05:33 98.8 55 20 121/74 (90) 98 02/06/18 20:59 72 113/72 02/06/18 20:59 72 113/72 02/06/18 16:25 97.5 51 16 113/72 (86) 96 Room Air 02/06/18 07:26 71 163/72 02/06/18 06:13 98.4 71 16 163/72 (102) 93 Room Air 02/05/18 22:13 95 113/76 02/05/18 22:13 95 113/76 Vital Signs Date Time Temp Pulse Resp B/P (MAP) Pulse Ox O2 Delivery O2 Flow Rate FiO2 02/08/18 20:13 72 103/67 02/08/18 16:05 98.3 18 94 02/07/18 16:02 Room Air I&O Intake and Output 02/08/18 07:00 Intake Total 580 ml Balance 580 ml Intake Oral 580 ml Current Medications: Meds: Current Medications Acetaminophen (Tylenol) 650 mg PRN Q6HRS PRN PO PAIN / TEMP; Start 02/01/18 at 12:15 Multi-Ingredient Ointment (Analgesic [place]) 1 king PRN QID PRN TP MUSCLE PAIN; Start 02/01/18 at 12:15 Al Hydroxide/Mg Hydroxide (Mylanta Plus Xs) 15 ml PRN AFTMEALHC PRN PO DYSPEPSIA; Start 02/01/18 at 12:15 Magnesium Hydroxide (Milk Of Magnesia) 2,400 mg PRN QHS PRN PO CONSTIPATION; Start 02/01/18 at 12:15 Influenza Virus Vaccine (Afluria Trivalent 2794-0033 Syringe) 0.5 ml ONCE ONCE VAX IM Last administered on 02/02/18at 10:11; Start 02/02/18 at 09:00; Stop 02/02/18 at 09:01; Status DC Aspirin (Davi Aspirin) 325 mg DAILY PO Last administered on 02/08/18 07:43; Start 02/02/18 at 09:00 Clonidine HCl (Catapres) 0.1 mg QHS PO Last administered on 02/07/18 19:28; Start 02/01/18 at 21:00 Fludrocortisone Acetate (Florinef) 0.1 mg DAILY PO Last administered on 07:45; Start 02/02/18 at 09:00 Lorazepam (Ativan) 0.5 mg PRN Q4HRS PRN PO ANXIETY / AGITATION Last administered on 02/02/18at 21:32; Start 02/01/18 at 13:30; Stop 02/06/18 at 18 :59; Status DC Metoprolol Tartrate (Lopressor) 25 mg BID PO Last administered on 02/07/18 19 :29; Start 02/01/18 at 21:00 Divalproex Sodium (Depakote Er) 1,500 mg QHS PO Last administered on at 20:16; Start 02/01/18 at 21:00; Stop 02/02/18 at 18:01; Status DC Divalproex Sodium (Depakote Er) 750 mg DAILY PO Last administered on at 09:02; Start 02/02/18 at 09:00; Stop 02/02/18 at 18:01; Status DC Docusate Sodium (Colace) 100 mg DAILY PO Last administered on 02/08/18at 07:43 ; Start 02/02/18 at 09:00 Levothyroxine Sodium (Synthroid) 25 mcg DAILY06 PO Last administered on at 06:20; Start 02/02/18 at 06:00 Loxapine Succinate (Loxitane) 10 mg TID PO Last administered on 02/02/18at 08: 58; Start 02/01/18 at 14:00; Stop 02/02/18 at 11:12; Status DC Nicotine (Nicoderm Cq 14mg) 1 patch DAILY TD ; Start 02/02/18 at 09:00; Stop 02/02/18 at 18:01; Status DC Thiamine HCl (Vitamin B-1) 100 mg DAILY PO Last administered on 02/08/18at 07: 46; Start 02/02/18 at 09:00 Trazodone HCl (Desyrel) 250 mg QHS PO Last administered on 02/08/18at 20:13; Start 02/01/18 at 21:00 Loxapine Succinate (Loxitane) 10 mg BID PO Last administered on 02/03/18at 19: 24; Start 02/02/18 at 21:00; Stop 02/04/18 at 08:00; Status DC Sertraline HCl (Zoloft) 50 mg DAILY PO Last administered on 02/06/18at 07:26; Start 02/03/18 at 09:00; Stop 02/06/18 at 17:54; Status DC Divalproex Sodium (Depakote Sprinkles) 750 mg TID@0900,1300,2100 PO Last administered on 02/08/18at 20:13; Start 02/02/18 at 21:00 Sertraline HCl (Zoloft) 75 mg DAILY PO Last administered on 02/08/18at 07:46; Start 02/07/18 at 09:00 Olanzapine (ZyPREXA ZYDIS) 2.5 mg PRN Q2HR PRN PO PSYCHOSIS/AGITATION Last administered on 02/08/18at 18:12; Start 02/08/18 at 17:15 Active Scripts Active Reported Haldol (Haloperidol Lactate) 5 Mg/1 Ml Ampul 5 Mg IM PRN Q6HRS PRN Docusate Sodium 100 Mg Capsule 100 Mg PO DAILY Trazodone Hcl 100 Mg Tablet 250 Mg PO QHS Loxapine (Loxapine Succinate) 10 Mg Capsule 10 Mg PO TID Ativan (Lorazepam) 1 Mg Tablet 0.5 Mg PO PRN Q4HRS PRN Ativan (Lorazepam) 2 Mg/1 Ml Vial 0.25 Ml IM PRN Q4HRS PRN Levothyroxine Sodium 25 Mcg Tablet 25 Mcg PO DAILYAC Divalproex Sodium Er (Divalproex Sodium) 500 Mg Tab.er.24h 1,500 Mg PO QHS Divalproex Sodium Er (Divalproex Sodium) 500 Mg Tab.er.24h 750 Mg PO DAILY Thiamine Hcl 100 Mg Tablet 100 Mg PO DAILY Multivitamins (Multivitamin) 1 Each Tablet 1 Each PO NICODERM CQ 14mg (Nicotine) 1 Each Patch.td24 1 Patch TD DAILY Metoprolol Tartrate 25 Mg Tablet 25 Mg PO BID Fludrocortisone Acetate 0.1 Mg Tablet 0.1 Mg PO DAILY Clonidine Hcl 0.1 Mg Tablet 0.1 Mg PO QHS Aspirin 325 Mg Tablet 325 Mg PO DAILY I have reviewed the current psychotropics carefully including drug interactions. Risk benefit ratio favors no change other than as noted in my dictated progress note. 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
--- NOTE | 2018-02-08 23:06 | PN ---
DATE: 02/07/2018 PSYCHIATRIC PROGRESS NOTE This late entry 02/07/2018 covers elements not covered in my initial note. SUBJECTIVE: I met with the patient in the evening. The patient slept 5-1/4 hours previous night. He has been less verbal at times, hallucinating, picking on things on the floor in the air compliant with medications. He has not been putting himself on the floor. He ate 100% of breakfast, nothing for lunch. REVIEW OF SYSTEMS: No CV, , pulmonary, eye, ENT system symptoms on review. Gait unsteady. Reliability poor. MENTAL STATUS EXAM: Oriented to himself. Insight, judgment, recent and remote memory, attention, concentration, fund of knowledge poor, consistent with his diagnosis mentioned in my initial note. IMPRESSION: Major neurocognitive disorder, Alzheimer, vascular with delusion, depression, behavioral disturbance. Rest unchanged. PLAN: No change from initial note. Loxitane has been stopped and he is on Zoloft 50 mg a day, Depakote ER 750 three times a day, level therapeutic at 54, trazodone mg at bedtime, Zoloft 50 mg a day. MAN Margy MOORE MD DR: OZZY/leah JOB#: [id number] / [id number]
--- NOTE | 2018-02-08 23:21 | PDOC ---
Exam Note: [facility] Note: Please also refer to the separate dictated note~for this date of service dictated separately.~Patient seen individually. Discussed the patient with Nursing staff reviewed the chart.~Reviewed interim history and current functioning. Reviewed vital signs,~Labs/ Radiology~and current medications noted below. Continue current treatment with the changes noted in the dictated addendum note Assessment: Vital Signs: Vital Signs Date Time Temp Pulse Resp B/P (MAP) Pulse Ox O2 Delivery O2 Flow Rate FiO2 02/08/18 20:13 72 103/67 02/08/18 16:05 98.3 18 94 02/07/18 16:02 Room Air I&O Intake and Output 02/08/18 07:00 Intake Total 580 ml Balance 580 ml Intake Oral 580 ml Current Medications: Meds: Current Medications Acetaminophen (Tylenol) 650 mg PRN Q6HRS PRN PO PAIN / TEMP; Start 02/01/18 at 12:15 Multi-Ingredient Ointment (Analgesic [place]) 1 king PRN QID PRN TP MUSCLE PAIN; Start 02/01/18 at 12:15 Al Hydroxide/Mg Hydroxide (Mylanta Plus Xs) 15 ml PRN AFTMEALHC PRN PO DYSPEPSIA; Start 02/01/18 at 12:15 Magnesium Hydroxide (Milk Of Magnesia) 2,400 mg PRN QHS PRN PO CONSTIPATION; Start 02/01/18 at 12:15 Influenza Virus Vaccine (Afluria Trivalent 3657-8821 Syringe) 0.5 ml ONCE ONCE VAX IM Last administered on 02/02/18at 10:11; Start 02/02/18 at 09:00; Stop 02/02/18 at 09:01; Status DC Aspirin (Davi Aspirin) 325 mg DAILY PO Last administered on 02/08/18at 07:43; Start 02/02/18 at 09:00 Clonidine HCl (Catapres) 0.1 mg QHS PO Last administered on 02/07/18at 19:28; Start 02/01/18 at 21:00 Fludrocortisone Acetate (Florinef) 0.1 mg DAILY PO Last administered on at 07:45; Start 02/02/18 at 09:00 Lorazepam (Ativan) 0.5 mg PRN Q4HRS PRN PO ANXIETY / AGITATION Last administered on 02/02/18at 21:32; Start 02/01/18 at 13:30; Stop 02/06/18 at 18 :59; Status DC Metoprolol Tartrate (Lopressor) 25 mg BID PO Last administered on 02/07/18at 19 :29; Start 02/01/18 at 21:00 Divalproex Sodium (Depakote Er) 1,500 mg QHS PO Last administered on at 20:16; Start 02/01/18 at 21:00; Stop 02/02/18 at 18:01; Status DC Divalproex Sodium (Depakote Er) 750 mg DAILY PO Last administered on at 09:02; Start 02/02/18 at 09:00; Stop 02/02/18 at 18:01; Status DC Docusate Sodium (Colace) 100 mg DAILY PO Last administered on 02/08/18at 07:43 ; Start 02/02/18 at 09:00 Levothyroxine Sodium (Synthroid) 25 mcg DAILY06 PO Last administered on at 06:20; Start 02/02/18 at 06:00 Loxapine Succinate (Loxitane) 10 mg TID PO Last administered on 02/02/18at 08: 58; Start 02/01/18 at 14:00; Stop 02/02/18 at 11:12; Status DC Nicotine (Nicoderm Cq 14mg) 1 patch DAILY TD ; Start 02/02/18 at 09:00; Stop 02/02/18 at 18:01; Status DC Thiamine HCl (Vitamin B-1) 100 mg DAILY PO Last administered on 02/08/18at 07: 46; Start 02/02/18 at 09:00 Trazodone HCl (Desyrel) 250 mg QHS PO Last administered on 02/08/18at 20:13; Start 02/01/18 at 21:00 Loxapine Succinate (Loxitane) 10 mg BID PO Last administered on 02/03/18at 19: 24; Start 02/02/18 at 21:00; Stop 02/04/18 at 08:00; Status DC Sertraline HCl (Zoloft) 50 mg DAILY PO Last administered on 02/06/18at 07:26; Start 02/03/18 at 09:00; Stop 02/06/18 at 17:54; Status DC Divalproex Sodium (Depakote Sprinkles) 750 mg TID@0900,1300,2100 PO Last administered on 02/08/18at 20:13; Start 02/02/18 at 21:00 Sertraline HCl (Zoloft) 75 mg DAILY PO Last administered on 02/08/18at 07:46; Start 02/07/18 at 09:00 Olanzapine (ZyPREXA ZYDIS) 2.5 mg PRN Q2HR PRN PO PSYCHOSIS/AGITATION Last administered on 02/08/18at 18:12; Start 02/08/18 at 17:15 Active Scripts Active Reported Haldol (Haloperidol Lactate) 5 Mg/1 Ml Ampul 5 Mg IM PRN Q6HRS PRN Docusate Sodium 100 Mg Capsule 100 Mg PO DAILY Trazodone Hcl 100 Mg Tablet 250 Mg PO QHS Loxapine (Loxapine Succinate) 10 Mg Capsule 10 Mg PO TID Ativan (Lorazepam) 1 Mg Tablet 0.5 Mg PO PRN Q4HRS PRN Ativan (Lorazepam) 2 Mg/1 Ml Vial 0.25 Ml IM PRN Q4HRS PRN Levothyroxine Sodium 25 Mcg Tablet 25 Mcg PO DAILYAC Divalproex Sodium Er (Divalproex Sodium) 500 Mg Tab.er.24h 1,500 Mg PO QHS Divalproex Sodium Er (Divalproex Sodium) 500 Mg Tab.er.24h 750 Mg PO DAILY Thiamine Hcl 100 Mg Tablet 100 Mg PO DAILY Multivitamins (Multivitamin) 1 Each Tablet 1 Each PO NICODERM CQ 14mg (Nicotine) 1 Each Patch.td24 1 Patch TD DAILY Metoprolol Tartrate 25 Mg Tablet 25 Mg PO BID Fludrocortisone Acetate 0.1 Mg Tablet 0.1 Mg PO DAILY Clonidine Hcl 0.1 Mg Tablet 0.1 Mg PO QHS Aspirin 325 Mg Tablet 325 Mg PO DAILY I have reviewed the current psychotropics carefully including drug interactions. Risk benefit ratio favors no change other than as noted in my dictated progress note. 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
[2018-02-09] MEDS: LEVOTHYROXINE 25 MCG TABLET. PO SCH (06:02)
[2018-02-09 06:11] VITALS: BP 130/75
[2018-02-09] MEDS: DIVALPROEX 125 MG CAP.SPRINK PO SCH ×3 (08:43→19:34)
[2018-02-09] MEDS: SERTRALINE 50 MG TABLET. PO SCH (08:47)
[2018-02-09] MEDS: ASPIRIN 325 MG TABLET PO SCH (08:47)
[2018-02-09] MEDS: THIAMINE 100 MG TABLET. PO SCH (08:47)
[2018-02-09] MEDS: FLUDROCORTISONE 0.1 MG TABLET PO SCH (08:48)
[2018-02-09] MEDS: METOPROLOL TART IMMED RELEASE 25 MG TABLET PO SCH ×2 (08:49→19:34)
[2018-02-09] MEDS: DOCUSATE SODIUM 100 MG CAPSULE PO SCH (08:50)
[2018-02-09 10:38] LABS: BASO % 0 % (0-3); EOS # 0.3 x10^3/uL (0.0-0.7); EOS % 6 % (0-3); HEMATOCRIT 39.4 % (39.0-53.0); HEMOGLOBIN 13.2 g/dL (13.0-17.5); LYMPH # 1.4 x10^3/uL (1.0-4.8); LYMPH % 25 % (24-48); MEAN CORPUSCULAR HEMOGLOBIN 31 pg (25-35); MEAN CORPUSCULAR HGB CONC 33 g/dL (31-37); MEAN CORPUSCULAR VOLUME 93 fL (79-100); MONO # 0.9 x10^3/uL (0.0-1.1); MONO % 16 % (0-9); NEUT % 53 % (31-73); PLATELET COUNT 191 x10^3/uL (140-400); RED BLOOD COUNT 4.25 x10^6/uL (4.30-5.70); RED CELL DISTRIBUTION WIDTH 13.3 % (11.5-14.5); WHITE BLOOD COUNT 5.6 x10^3/uL (4.0-11.0)
[2018-02-09 10:50] LABS: ALBUMIN 3.4 g/dL (3.4-5.0); CALCIUM 9.1 mg/dL (8.5-10.1); CREATININE 1.1 mg/dL (0.7-1.3); GFR 66.6; POTASSIUM 4.7 mmol/L (3.5-5.1); TOTAL BILIRUBIN 0.3 mg/dL (0.2-1.0); TOTAL PROTEIN 6.9 g/dL (6.4-8.2); VAL ACID 60 mcg/mL (50-100)
[2018-02-09 16:09] VITALS: BP 107/68
[2018-02-09] MEDS: QUEtiapine 25 MG TABLET. PO SCH (17:09)
[2018-02-09] MEDS: cloNIDine HCL 0.1 MG TABLET PO SCH (19:33)
[2018-02-09] MEDS: traZODone 100 MG TABLET. PO SCH (19:34)
--- NOTE | 2018-02-09 23:18 | PDOC ---
Exam Note: [facility] Note: Please also refer to the separate dictated note~for this date of service dictated separately.~Patient seen individually. Discussed the patient with Nursing staff reviewed the chart.~Reviewed interim history and current functioning. Reviewed vital signs,~Labs/ Radiology~and current medications noted below. Continue current treatment with the changes noted in the dictated addendum note Assessment: Vital Signs: Vital Signs Date Time Temp Pulse Resp B/P (MAP) Pulse Ox O2 Delivery O2 Flow Rate FiO2 02/09/18 19:34 72 107/68 02/09/18 16:09 97.6 20 93 Room Air I&O Intake and Output 02/09/18 07:00 Intake Total 360 ml Balance 360 ml Intake Oral 360 ml Labs: Laboratory Tests Test 02/09/18 10:25 White Blood Count 5.6 x10^3/uL (4.0-11.0) Red Blood Count 4.25 x10^6/uL (4.30-5.70) L Hemoglobin 13.2 g/dL (13.0-17.5) Hematocrit 39.4 % (39.0-53.0) Mean Corpuscular Volume 93 fL (79-100) Mean Corpuscular Hemoglobin 31 pg (25-35) Mean Corpuscular Hemoglobin Concent 33 g/dL (31-37) Red Cell Distribution Width 13.3 % (11.5-14.5) Platelet Count 191 x10^3/uL (140-400) Neutrophils (%) (Auto) 53 % (31-73) Lymphocytes (%) (Auto) 25 % (24-48) Monocytes (%) (Auto) 16 % (0-9) H Eosinophils (%) (Auto) 6 % (0-3) H Basophils (%) (Auto) 0 % (0-3) Neutrophils # (Auto) 3.0 x10^3uL (1.8-7.7) Lymphocytes # (Auto) 1.4 x10^3/uL (1.0-4.8) Monocytes # (Auto) 0.9 x10^3/uL (0.0-1.1) Eosinophils # (Auto) 0.3 x10^3/uL (0.0-0.7) Basophils # (Auto) 0.0 x10^3/uL (0.0-0.2) Sodium Level 142 mmol/L (136-145) Potassium Level 4.7 mmol/L (3.5-5.1) Chloride Level 107 mmol/L (98-107) Carbon Dioxide Level 32 mmol/L (21-32) Anion Gap 3 (6-14) L Blood Urea Nitrogen 21 mg/dL (8-26) Creatinine 1.1 mg/dL (0.7-1.3) Estimated GFR (Cockcroft-Gault) 66.6 BUN/Creatinine Ratio 19 (6-20) Glucose Level 110 mg/dL (70-99) H Calcium Level 9.1 mg/dL (8.5-10.1) Total Bilirubin 0.3 mg/dL (0.2-1.0) Aspartate Amino Transferase (AST) 23 U/L (15-37) Alanine Aminotransferase (ALT) 27 U/L (16-63) Alkaline Phosphatase 60 U/L (46-116) Total Protein 6.9 g/dL (6.4-8.2) Albumin 3.4 g/dL (3.4-5.0) Albumin/Globulin Ratio 1.0 (1.0-1.7) Valproic Acid Level 60 mcg/mL (50-100) Valproic Acid Last Dose Date 02/08/18 Valproic Acid Last Dose Time 2100 Current Medications: Meds: Current Medications Acetaminophen (Tylenol) 650 mg PRN Q6HRS PRN PO PAIN / TEMP; Start 02/01/18 at 12:15 Multi-Ingredient Ointment (Analgesic [place]) 1 king PRN QID PRN TP MUSCLE PAIN; Start 02/01/18 at 12:15 Al Hydroxide/Mg Hydroxide (Mylanta Plus Xs) 15 ml PRN AFTMEALHC PRN PO DYSPEPSIA; Start 02/01/18 at 12:15 Magnesium Hydroxide (Milk Of Magnesia) 2,400 mg PRN QHS PRN PO CONSTIPATION; Start 02/01/18 at 12:15 Influenza Virus Vaccine (Afluria Trivalent [id number] Syringe) 0.5 ml ONCE ONCE VAX IM Last administered on 02/02/18at 10:11; Start 02/02/18 at 09:00; Stop 02/02/18 at 09:01; Status DC Aspirin (Davi Aspirin) 325 mg DAILY PO Last administered on 02/09/18at 08:47; Start 02/02/18 at 09:00 Clonidine HCl (Catapres) 0.1 mg QHS PO Last administered on 02/07/18 19:28; Start 02/01/18 at 21:00 Fludrocortisone Acetate (Florinef) 0.1 mg DAILY PO Last administered on 08:48; Start 02/02/18 at 09:00 Lorazepam (Ativan) 0.5 mg PRN Q4HRS PRN PO ANXIETY / AGITATION Last administered on 02/02/18 21:32; Start 02/01/18 at 13:30; Stop 02/06/18 at 18 :59; Status DC Metoprolol Tartrate (Lopressor) 25 mg BID PO Last administered on 02/09/18 19 :34; Start 02/01/18 at 21:00 Divalproex Sodium (Depakote Er) 1,500 mg QHS PO Last administered on at 20:16; Start 02/01/18 at 21:00; Stop 02/02/18 at 18:01; Status DC Divalproex Sodium (Depakote Er) 750 mg DAILY PO Last administered on 09:02; Start 02/02/18 at 09:00; Stop 02/02/18 at 18:01; Status DC Docusate Sodium (Colace) 100 mg DAILY PO Last administered on 02/09/18 08:50 ; Start 02/02/18 at 09:00 Levothyroxine Sodium (Synthroid) 25 mcg DAILY06 PO Last administered on 06:02; Start 02/02/18 at 06:00 Loxapine Succinate (Loxitane) 10 mg TID PO Last administered on 02/02/18at 08: 58; Start 02/01/18 at 14:00; Stop 02/02/18 at 11:12; Status DC Nicotine (Nicoderm Cq 14mg) 1 patch DAILY TD ; Start 02/02/18 at 09:00; Stop 02/02/18 at 18:01; Status DC Thiamine HCl (Vitamin B-1) 100 mg DAILY PO Last administered on 02/09/18 08: 47; Start 02/02/18 at 09:00 Trazodone HCl (Desyrel) 250 mg QHS PO Last administered on 10/25/18at 19:34; Start 02/01/18 at 21:00 Loxapine Succinate (Loxitane) 10 mg BID PO Last administered on 02/03/18at 19: 24; Start 02/02/18 at 21:00; Stop 02/04/18 at 08:00; Status DC Sertraline HCl (Zoloft) 50 mg DAILY PO Last administered on 02/06/18at 07:26; Start 02/03/18 at 09:00; Stop 02/06/18 at 17:54; Status DC Divalproex Sodium (Depakote Sprinkles) 750 mg TID@0900,1300,2100 PO Last administered on 02/09/18at 19:34; Start 02/02/18 at 21:00 Sertraline HCl (Zoloft) 75 mg DAILY PO Last administered on 02/09/18at 08:47; Start 02/07/18 at 09:00 Olanzapine (ZyPREXA ZYDIS) 2.5 mg PRN Q2HR PRN PO PSYCHOSIS/AGITATION Last administered on 02/08/18at 18:12; Start 02/08/18 at 17:15 Quetiapine Fumarate (SEROquel) 12.5 mg DAILY@0900,1700 PO Last administered on 02/09/18at 17:09; Start 02/09/18 at 17:00 Active Scripts Active Reported Haldol (Haloperidol Lactate) 5 Mg/1 Ml Ampul 5 Mg IM PRN Q6HRS PRN Docusate Sodium 100 Mg Capsule 100 Mg PO DAILY Trazodone Hcl 100 Mg Tablet 250 Mg PO QHS Loxapine (Loxapine Succinate) 10 Mg Capsule 10 Mg PO TID Ativan (Lorazepam) 1 Mg Tablet 0.5 Mg PO PRN Q4HRS PRN Ativan (Lorazepam) 2 Mg/1 Ml Vial 0.25 Ml IM PRN Q4HRS PRN Levothyroxine Sodium 25 Mcg Tablet 25 Mcg PO DAILYAC Divalproex Sodium Er (Divalproex Sodium) 500 Mg Tab.er.24h 1,500 Mg PO QHS Divalproex Sodium Er (Divalproex Sodium) 500 Mg Tab.er.24h 750 Mg PO DAILY Thiamine Hcl 100 Mg Tablet 100 Mg PO DAILY Multivitamins (Multivitamin) 1 Each Tablet 1 Each PO NICODERM CQ 14mg (Nicotine) 1 Each Patch.td24 1 Patch TD DAILY Metoprolol Tartrate 25 Mg Tablet 25 Mg PO BID Fludrocortisone Acetate 0.1 Mg Tablet 0.1 Mg PO DAILY Clonidine Hcl 0.1 Mg Tablet 0.1 Mg PO QHS Aspirin 325 Mg Tablet 325 Mg PO DAILY I have reviewed the current psychotropics carefully including drug interactions. Risk benefit ratio favors no change other than as noted in my dictated progress note. 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
[2018-02-10 05:42] VITALS: BP 166/85
[2018-02-10] MEDS: LEVOTHYROXINE 25 MCG TABLET. PO SCH (05:58)
[2018-02-10] MEDS: DOCUSATE SODIUM 100 MG CAPSULE PO SCH (08:47)
[2018-02-10] MEDS: DIVALPROEX 125 MG CAP.SPRINK PO SCH ×3 (08:48→19:46)
[2018-02-10] MEDS: SERTRALINE 50 MG TABLET. PO SCH (08:48)
[2018-02-10] MEDS: QUEtiapine 25 MG TABLET. PO SCH ×2 (08:49→17:06)
[2018-02-10] MEDS: METOPROLOL TART IMMED RELEASE 25 MG TABLET PO SCH ×2 (08:49→19:48)
[2018-02-10] MEDS: THIAMINE 100 MG TABLET. PO SCH (08:50)
[2018-02-10] MEDS: ASPIRIN 325 MG TABLET PO SCH (08:50)
[2018-02-10] MEDS: FLUDROCORTISONE 0.1 MG TABLET PO SCH (09:00)
[2018-02-10 15:48] VITALS: BP 156/64
[2018-02-10] MEDS: traZODone 100 MG TABLET. PO SCH (19:46)
[2018-02-10] MEDS: cloNIDine HCL 0.1 MG TABLET PO SCH (19:47)
--- NOTE | 2018-02-10 20:20 | PN ---
DATE: 02/08/2018 PSYCHIATRIC PROGRESS NOTE This late entry 02/08/2018 covers elements not covered in my initial note. SUBJECTIVE: I met with the patient in the evening. The patient slept 8 hours previous evening. He remains somewhat confused, oriented just to himself, grabbing at things in the air and on the floor. We will check valproic acid. At times, he gets agitated, strikes out at others around him. REVIEW OF SYSTEMS: No CV, , pulmonary, eye, ENT system symptoms on review. Reliability poor. MENTAL STATUS EXAM: Oriented to himself. Insight, judgment, recent and remote memory, attention, concentration, fund of knowledge poor, consistent with his diagnosis mentioned in my initial note. IMPRESSION: Unchanged from initial note. PLAN: Add Zyprexa p.r.n. for psychosis, agitation. Rest unchanged from initial note. MAN RaghuCheyanne MOORE MD DR: OZZY/leah JOB#: [id number] / [id number]
--- NOTE | 2018-02-10 23:36 | PDOC ---
Exam Note: Dinoicio Note: Please also refer to the separate dictated note~for this date of service dictated separately.~Patient seen individually. Discussed the patient with Nursing staff reviewed the chart.~Reviewed interim history and current functioning. Reviewed vital signs,~Labs/ Radiology~and current medications noted below. Continue current treatment with the changes noted in the dictated addendum note Assessment: Vital Signs: Vital Signs Date Time Temp Pulse Resp B/P (MAP) Pulse Ox O2 Delivery O2 Flow Rate FiO2 02/10/18 19:48 52 156/64 02/10/18 15:48 97.2 18 94 Room Air I&O Intake and Output 02/10/18 07:00 Intake Total 1140 ml Balance 1140 ml Intake Oral 1140 ml # Voids 1 Current Medications: Meds: Current Medications Acetaminophen (Tylenol) 650 mg PRN Q6HRS PRN PO PAIN / TEMP; Start 02/01/18 at 12:15 Multi-Ingredient Ointment (Analgesic [place]) 1 king PRN QID PRN TP MUSCLE PAIN; Start 02/01/18 at 12:15 Al Hydroxide/Mg Hydroxide (Mylanta Plus Xs) 15 ml PRN AFTMEALHC PRN PO DYSPEPSIA; Start 02/01/18 at 12:15 Magnesium Hydroxide (Milk Of Magnesia) 2,400 mg PRN QHS PRN PO CONSTIPATION; Start 02/01/18 at 12:15 Influenza Virus Vaccine (Afluria Trivalent [id number] Syringe) 0.5 ml ONCE ONCE VAX IM Last administered on 02/02/18at 10:11; Start 02/02/18 at 09:00; Stop 02/02/18 at 09:01; Status DC Aspirin (Davi Aspirin) 325 mg DAILY PO Last administered on 02/10/18at 08:50; Start 02/02/18 at 09:00 Clonidine HCl (Catapres) 0.1 mg QHS PO Last administered on 02/10/18at 19:47; Start 02/01/18 at 21:00 Fludrocortisone Acetate (Florinef) 0.1 mg DAILY PO Last administered on at 09:00; Start 02/02/18 at 09:00 Lorazepam (Ativan) 0.5 mg PRN Q4HRS PRN PO ANXIETY / AGITATION Last administered on 02/02/18at 21:32; Start 02/01/18 at 13:30; Stop 02/06/18 at 18 :59; Status DC Metoprolol Tartrate (Lopressor) 25 mg BID PO Last administered on 02/10/18at 08 :49; Start 02/01/18 at 21:00 Divalproex Sodium (Depakote Er) 1,500 mg QHS PO Last administered on at 20:16; Start 02/01/18 at 21:00; Stop 02/02/18 at 18:01; Status DC Divalproex Sodium (Depakote Er) 750 mg DAILY PO Last administered on at 09:02; Start 02/02/18 at 09:00; Stop 02/02/18 at 18:01; Status DC Docusate Sodium (Colace) 100 mg DAILY PO Last administered on 02/10/18at 08:47 ; Start 02/02/18 at 09:00 Levothyroxine Sodium (Synthroid) 25 mcg DAILY06 PO Last administered on at 05:58; Start 02/02/18 at 06:00 Loxapine Succinate (Loxitane) 10 mg TID PO Last administered on 02/02/18at 08: 58; Start 02/01/18 at 14:00; Stop 02/02/18 at 11:12; Status DC Nicotine (Nicoderm Cq 14mg) 1 patch DAILY TD ; Start 02/02/18 at 09:00; Stop 02/02/18 at 18:01; Status DC Thiamine HCl (Vitamin B-1) 100 mg DAILY PO Last administered on 02/10/18at 08: 50; Start 02/02/18 at 09:00 Trazodone HCl (Desyrel) 250 mg QHS PO Last administered on 02/10/18at 19:46; Start 02/01/18 at 21:00 Loxapine Succinate (Loxitane) 10 mg BID PO Last administered on 02/03/18at 19: 24; Start 02/02/18 at 21:00; Stop 02/04/18 at 08:00; Status DC Sertraline HCl (Zoloft) 50 mg DAILY PO Last administered on 02/06/18at 07:26; Start 02/03/18 at 09:00; Stop 02/06/18 at 17:54; Status DC Divalproex Sodium (Depakote Sprinkles) 750 mg TID@0900,1300,2100 PO Last administered on 02/10/18at 19:46; Start 02/02/18 at 21:00 Sertraline HCl (Zoloft) 75 mg DAILY PO Last administered on 02/10/18at 08:48; Start 02/07/18 at 09:00 Olanzapine (ZyPREXA ZYDIS) 2.5 mg PRN Q2HR PRN PO PSYCHOSIS/AGITATION Last administered on 02/08/18at 18:12; Start 02/08/18 at 17:15 Quetiapine Fumarate (SEROquel) 12.5 mg DAILY@0900,1700 PO Last administered on 02/10/18at 17:06; Start 02/09/18 at 17:00; Stop 02/10/18 at 17:26; Status DC Quetiapine Fumarate (SEROquel) 12.5 mg TID@0900,1300,1700 PO ; Start 02/11/18 at 09:00 Active Scripts Active Reported Haldol (Haloperidol Lactate) 5 Mg/1 Ml Ampul 5 Mg IM PRN Q6HRS PRN Docusate Sodium 100 Mg Capsule 100 Mg PO DAILY Trazodone Hcl 100 Mg Tablet 250 Mg PO QHS Loxapine (Loxapine Succinate) 10 Mg Capsule 10 Mg PO TID Ativan (Lorazepam) 1 Mg Tablet 0.5 Mg PO PRN Q4HRS PRN Ativan (Lorazepam) 2 Mg/1 Ml Vial 0.25 Ml IM PRN Q4HRS PRN Levothyroxine Sodium 25 Mcg Tablet 25 Mcg PO DAILYAC Divalproex Sodium Er (Divalproex Sodium) 500 Mg Tab.er.24h 1,500 Mg PO QHS Divalproex Sodium Er (Divalproex Sodium) 500 Mg Tab.er.24h 750 Mg PO DAILY Thiamine Hcl 100 Mg Tablet 100 Mg PO DAILY Multivitamins (Multivitamin) 1 Each Tablet 1 Each PO NICODERM CQ 14mg (Nicotine) 1 Each Patch.td24 1 Patch TD DAILY Metoprolol Tartrate 25 Mg Tablet 25 Mg PO BID Fludrocortisone Acetate 0.1 Mg Tablet 0.1 Mg PO DAILY Clonidine Hcl 0.1 Mg Tablet 0.1 Mg PO QHS Aspirin 325 Mg Tablet 325 Mg PO DAILY I have reviewed the current psychotropics carefully including drug interactions. Risk benefit ratio favors no change other than as noted in my dictated progress note. 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
[2018-02-11] MEDS: LEVOTHYROXINE 25 MCG TABLET. PO SCH (05:33)
[2018-02-11 06:10] VITALS: BP 153/82
[2018-02-11] MEDS: DOCUSATE SODIUM 100 MG CAPSULE PO SCH (08:33)
[2018-02-11] MEDS: DIVALPROEX 125 MG CAP.SPRINK PO SCH ×3 (08:33→21:19)
[2018-02-11] MEDS: ASPIRIN 325 MG TABLET PO SCH (08:33)
[2018-02-11] MEDS: FLUDROCORTISONE 0.1 MG TABLET PO SCH (08:34)
[2018-02-11] MEDS: QUEtiapine 25 MG TABLET. PO SCH ×3 (08:35→17:28)
[2018-02-11] MEDS: THIAMINE 100 MG TABLET. PO SCH (08:35)
[2018-02-11] MEDS: SERTRALINE 50 MG TABLET. PO SCH (08:36)
[2018-02-11] MEDS: METOPROLOL TART IMMED RELEASE 25 MG TABLET PO SCH ×2 (09:00→21:20)
--- NOTE | 2018-02-11 12:32 | PN ---
DATE: 02/09/2018 PSYCHIATRIC PROGRESS NOTE This late entry 02/09/2018 covers elements, not covered in my initial note. SUBJECTIVE: I met with the patient in the evening and staffed at a treatment team meeting with the entire team in the morning. The patient remains extremely confused, becomes aggressive and has hit out at other patients on the unit on 2 or 3 occasions. REVIEW OF SYSTEMS: No CV, , pulmonary, eye, ENT system symptoms on review. Reliability poor. MENTAL STATUS EXAM: Oriented to himself. Insight, judgment, recent and remote memory, attention, concentration, fund of knowledge poor, consistent with his diagnosis. LABORATORY DATA: Reviewed. IMPRESSION: Major neurocognitive disorder, Alzheimer, vascular with delusion, depression, behavioral disturbance; anxiety disorder, unspecified; impulse control disorder, unspecified. PLAN: Continue current psychotropics mentioned in my initial note. Start Seroquel 12.5 mg 9 a.m. and 5 p.m., may need to increase this depending on his progress. Reviewed interactions at length. AALIYAH MOORE MD DR: OZZY/leah JOB#: [id number] / [id number]
[2018-02-11 16:33] VITALS: BP 129/78
[2018-02-11] MEDS: cloNIDine HCL 0.1 MG TABLET PO SCH (21:20)
[2018-02-11] MEDS: traZODone 100 MG TABLET. PO SCH (21:20)
--- NOTE | 2018-02-11 22:57 | PDOC ---
Exam Note: Dionicio Note: Please also refer to the separate dictated note~for this date of service dictated separately.~Patient seen individually. Discussed the patient with Nursing staff reviewed the chart.~Reviewed interim history and current functioning. Reviewed vital signs,~Labs/ Radiology~and current medications noted below. Continue current treatment with the changes noted in the dictated addendum note Assessment: Vital Signs: Vital Signs Date Time Temp Pulse Resp B/P (MAP) Pulse Ox O2 Delivery O2 Flow Rate FiO2 02/11/18 21:20 53 129/78 02/11/18 16:33 98.0 18 96 Room Air I&O Intake and Output 02/11/18 07:00 Intake Total 420 ml Balance 420 ml Intake Oral 420 ml # Voids 1 Current Medications: Meds: Current Medications Acetaminophen (Tylenol) 650 mg PRN Q6HRS PRN PO PAIN / TEMP; Start 02/01/18 at 12:15 Multi-Ingredient Ointment (Analgesic [place]) 1 king PRN QID PRN TP MUSCLE PAIN; Start 02/01/18 at 12:15 Al Hydroxide/Mg Hydroxide (Mylanta Plus Xs) 15 ml PRN AFTMEALHC PRN PO DYSPEPSIA; Start 02/01/18 at 12:15 Magnesium Hydroxide (Milk Of Magnesia) 2,400 mg PRN QHS PRN PO CONSTIPATION; Start 02/01/18 at 12:15 Influenza Virus Vaccine (Afluria Trivalent [id number] Syringe) 0.5 ml ONCE ONCE VAX IM Last administered on 02/02/18at 10:11; Start 02/02/18 at 09:00; Stop 02/02/18 at 09:01; Status DC Aspirin (Davi Aspirin) 325 mg DAILY PO Last administered on 02/11/18at 08:33; Start 02/02/18 at 09:00 Clonidine HCl (Catapres) 0.1 mg QHS PO Last administered on 02/11/18at 21:20; Start 02/01/18 at 21:00 Fludrocortisone Acetate (Florinef) 0.1 mg DAILY PO Last administered on at 08:34; Start 02/02/18 at 09:00 Lorazepam (Ativan) 0.5 mg PRN Q4HRS PRN PO ANXIETY / AGITATION Last administered on 02/02/18at 21:32; Start 02/01/18 at 13:30; Stop 02/06/18 at 18 :59; Status DC Metoprolol Tartrate (Lopressor) 25 mg BID PO Last administered on 02/11/18at 21 :20; Start 02/01/18 at 21:00 Divalproex Sodium (Depakote Er) 1,500 mg QHS PO Last administered on at 20:16; Start 02/01/18 at 21:00; Stop 02/02/18 at 18:01; Status DC Divalproex Sodium (Depakote Er) 750 mg DAILY PO Last administered on at 09:02; Start 02/02/18 at 09:00; Stop 02/02/18 at 18:01; Status DC Docusate Sodium (Colace) 100 mg DAILY PO Last administered on 02/11/18at 08:33 ; Start 02/02/18 at 09:00 Levothyroxine Sodium (Synthroid) 25 mcg DAILY06 PO Last administered on at 05:33; Start 02/02/18 at 06:00 Loxapine Succinate (Loxitane) 10 mg TID PO Last administered on 02/02/18at 08: 58; Start 02/01/18 at 14:00; Stop 02/02/18 at 11:12; Status DC Nicotine (Nicoderm Cq 14mg) 1 patch DAILY TD ; Start 02/02/18 at 09:00; Stop 02/02/18 at 18:01; Status DC Thiamine HCl (Vitamin B-1) 100 mg DAILY PO Last administered on 02/11/18at 08: 35; Start 02/02/18 at 09:00 Trazodone HCl (Desyrel) 250 mg QHS PO Last administered on 02/11/18at 21:20; Start 02/01/18 at 21:00 Loxapine Succinate (Loxitane) 10 mg BID PO Last administered on 02/03/18at 19: 24; Start 02/02/18 at 21:00; Stop 02/04/18 at 08:00; Status DC Sertraline HCl (Zoloft) 50 mg DAILY PO Last administered on 02/06/18at 07:26; Start 02/03/18 at 09:00; Stop 02/06/18 at 17:54; Status DC Divalproex Sodium (Depakote Sprinkles) 750 mg TID@0900,1300,2100 PO Last administered on 02/11/18at 21:19; Start 02/02/18 at 21:00 Sertraline HCl (Zoloft) 75 mg DAILY PO Last administered on 02/11/18at 08:36; Start 02/07/18 at 09:00 Olanzapine (ZyPREXA ZYDIS) 2.5 mg PRN Q2HR PRN PO PSYCHOSIS/AGITATION Last administered on 02/08/18at 18:12; Start 02/08/18 at 17:15 Quetiapine Fumarate (SEROquel) 12.5 mg DAILY@0900,1700 PO Last administered on 02/10/18at 17:06; Start 02/09/18 at 17:00; Stop 02/10/18 at 17:26; Status DC Quetiapine Fumarate (SEROquel) 12.5 mg TID@0900,1300,1700 PO Last administered on 02/11/18at 17:28; Start 02/11/18 at 09:00; Stop 02/11/18 at 19:01; Status DC Quetiapine Fumarate (SEROquel) 25 mg TID@0900,1300,1700 PO ; Start 02/12/18 at 09:00 Active Scripts Active Reported Haldol (Haloperidol Lactate) 5 Mg/1 Ml Ampul 5 Mg IM PRN Q6HRS PRN Docusate Sodium 100 Mg Capsule 100 Mg PO DAILY Trazodone Hcl 100 Mg Tablet 250 Mg PO QHS Loxapine (Loxapine Succinate) 10 Mg Capsule 10 Mg PO TID Ativan (Lorazepam) 1 Mg Tablet 0.5 Mg PO PRN Q4HRS PRN Ativan (Lorazepam) 2 Mg/1 Ml Vial 0.25 Ml IM PRN Q4HRS PRN Levothyroxine Sodium 25 Mcg Tablet 25 Mcg PO DAILYAC Divalproex Sodium Er (Divalproex Sodium) 500 Mg Tab.er.24h 1,500 Mg PO QHS Divalproex Sodium Er (Divalproex Sodium) 500 Mg Tab.er.24h 750 Mg PO DAILY Thiamine Hcl 100 Mg Tablet 100 Mg PO DAILY Multivitamins (Multivitamin) 1 Each Tablet 1 Each PO NICODERM CQ 14mg (Nicotine) 1 Each Patch.td24 1 Patch TD DAILY Metoprolol Tartrate 25 Mg Tablet 25 Mg PO BID Fludrocortisone Acetate 0.1 Mg Tablet 0.1 Mg PO DAILY Clonidine Hcl 0.1 Mg Tablet 0.1 Mg PO QHS Aspirin 325 Mg Tablet 325 Mg PO DAILY I have reviewed the current psychotropics carefully including drug interactions. Risk benefit ratio favors no change other than as noted in my dictated progress note. Diagnosis: Problems: (1) Alcoholic dementia (2) Medical clearance for psychiatric admission (3) Anxiety disorder (4) Major neurocognitive disorder, due to vascular disease, with behavioral disturbance, mild (5) Mixed Alzheimer's and vascular dementia with behavior disturbances (6) Dementia associated with alcoholism with behavioral disturbance (7) Impulse control disorder AALIYAH MOORE MD Feb 11, 2018 22:57
--- NOTE | 2018-02-11 23:36 | PN ---
DATE: 02/10/2018 This is a late entry for date of service 02/10/2018 and covers elements not covered in my initial note. SUBJECTIVE: I met with the patient in the evening. The patient slept 7-1/4 hours previous evening. He remains extremely confused per nursing report, intermittently agitated, aggressive to a staff member, hitting out. REVIEW OF SYSTEMS: No CV, , pulmonary, eye, ENT system symptoms on review. Reliability poor. MENTAL STATUS EXAM: Oriented to himself. Insight, judgment, recent and remote memory, attention, concentration, fund of knowledge poor, consistent with his diagnosis. IMPRESSION: Major neurocognitive disorder, Alzheimer, vascular with delusion, depression, behavioral disturbance; anxiety disorder, unspecified; impulse control disorder, unspecified. Rest unchanged. PLAN: No change from initial note, but we will go ahead and increase the Seroquel from 12.5 mg twice a day to 12.5 mg 3 times a day. MAN Margy MOORE MD DR: OZZY/leah JOB#: [id number] / [id number]
[2018-02-12] MEDS: LEVOTHYROXINE 25 MCG TABLET. PO SCH (06:00)
[2018-02-12 06:01] VITALS: BP 164/96
[2018-02-12] MEDS: FLUDROCORTISONE 0.1 MG TABLET PO SCH (08:37)
[2018-02-12] MEDS: DOCUSATE SODIUM 100 MG CAPSULE PO SCH (08:37)
[2018-02-12] MEDS: ASPIRIN 325 MG TABLET PO SCH (08:37)
[2018-02-12] MEDS: DIVALPROEX 125 MG CAP.SPRINK PO SCH ×3 (08:37→21:13)
[2018-02-12] MEDS: THIAMINE 100 MG TABLET. PO SCH (08:45)
[2018-02-12] MEDS: QUEtiapine 25 MG TABLET. PO SCH ×3 (08:45→17:11)
[2018-02-12] MEDS: SERTRALINE 50 MG TABLET. PO SCH (08:46)
[2018-02-12] MEDS: METOPROLOL TART IMMED RELEASE 25 MG TABLET PO SCH ×2 (09:00→21:13)
[2018-02-12 16:29] VITALS: BP 125/84
[2018-02-12] MEDS: cloNIDine HCL 0.1 MG TABLET PO SCH (21:12)
[2018-02-12] MEDS: traZODone 100 MG TABLET. PO SCH (21:12)
--- NOTE | 2018-02-12 23:04 | PDOC ---
Exam Note: Dionicio Note: Please also refer to the separate dictated note~for this date of service dictated separately.~Patient seen individually. Discussed the patient with Nursing staff reviewed the chart.~Reviewed interim history and current functioning. Reviewed vital signs,~Labs/ Radiology~and current medications noted below. Continue current treatment with the changes noted in the dictated addendum note Assessment: Vital Signs: Vital Signs Date Time Temp Pulse Resp B/P (MAP) Pulse Ox O2 Delivery O2 Flow Rate FiO2 02/12/18 21:13 60 125/84 02/12/18 16:29 97.3 18 95 Room Air I&O Intake and Output 02/12/18 07:00 Intake Total 960 ml Balance 960 ml Intake Oral 960 ml Current Medications: Meds: Current Medications Acetaminophen (Tylenol) 650 mg PRN Q6HRS PRN PO PAIN / TEMP; Start 02/01/18 at 12:15 Multi-Ingredient Ointment (Analgesic [place]) 1 king PRN QID PRN TP MUSCLE PAIN; Start 02/01/18 at 12:15 Al Hydroxide/Mg Hydroxide (Mylanta Plus Xs) 15 ml PRN AFTMEALHC PRN PO DYSPEPSIA; Start 02/01/18 at 12:15 Magnesium Hydroxide (Milk Of Magnesia) 2,400 mg PRN QHS PRN PO CONSTIPATION; Start 02/01/18 at 12:15 Influenza Virus Vaccine (Afluria Trivalent [id number] Syringe) 0.5 ml ONCE ONCE VAX IM Last administered on 02/02/18at 10:11; Start 02/02/18 at 09:00; Stop 02/02/18 at 09:01; Status DC Aspirin (Davi Aspirin) 325 mg DAILY PO Last administered on 02/12/18at 08:37; Start 02/02/18 at 09:00 Clonidine HCl (Catapres) 0.1 mg QHS PO Last administered on 02/12/18at 21:12; Start 02/01/18 at 21:00 Fludrocortisone Acetate (Florinef) 0.1 mg DAILY PO Last administered on at 08:37; Start 02/02/18 at 09:00 Lorazepam (Ativan) 0.5 mg PRN Q4HRS PRN PO ANXIETY / AGITATION Last administered on 02/02/18at 21:32; Start 02/01/18 at 13:30; Stop 02/06/18 at 18 :59; Status DC Metoprolol Tartrate (Lopressor) 25 mg BID PO Last administered on 02/12/18at 21 :13; Start 02/01/18 at 21:00 Divalproex Sodium (Depakote Er) 1,500 mg QHS PO Last administered on at 20:16; Start 02/01/18 at 21:00; Stop 02/02/18 at 18:01; Status DC Divalproex Sodium (Depakote Er) 750 mg DAILY PO Last administered on at 09:02; Start 02/02/18 at 09:00; Stop 02/02/18 at 18:01; Status DC Docusate Sodium (Colace) 100 mg DAILY PO Last administered on 02/12/18at 08:37 ; Start 02/02/18 at 09:00 Levothyroxine Sodium (Synthroid) 25 mcg DAILY06 PO Last administered on at 05:33; Start 02/02/18 at 06:00 Loxapine Succinate (Loxitane) 10 mg TID PO Last administered on 02/02/18at 08: 58; Start 02/01/18 at 14:00; Stop 02/02/18 at 11:12; Status DC Nicotine (Nicoderm Cq 14mg) 1 patch DAILY TD ; Start 02/02/18 at 09:00; Stop 02/02/18 at 18:01; Status DC Thiamine HCl (Vitamin B-1) 100 mg DAILY PO Last administered on 02/12/18at 08: 45; Start 02/02/18 at 09:00 Trazodone HCl (Desyrel) 250 mg QHS PO Last administered on 02/12/18at 21:12; Start 02/01/18 at 21:00 Loxapine Succinate (Loxitane) 10 mg BID PO Last administered on 02/03/18at 19: 24; Start 02/02/18 at 21:00; Stop 02/04/18 at 08:00; Status DC Sertraline HCl (Zoloft) 50 mg DAILY PO Last administered on 02/06/18at 07:26; Start 02/03/18 at 09:00; Stop 02/06/18 at 17:54; Status DC Divalproex Sodium (Depakote Sprinkles) 750 mg TID@0900,1300,2100 PO Last administered on 02/12/18at 21:13; Start 02/02/18 at 21:00 Sertraline HCl (Zoloft) 75 mg DAILY PO Last administered on 02/12/18at 08:46; Start 02/07/18 at 09:00 Olanzapine (ZyPREXA ZYDIS) 2.5 mg PRN Q2HR PRN PO PSYCHOSIS/AGITATION Last administered on 02/08/18at 18:12; Start 02/08/18 at 17:15 Quetiapine Fumarate (SEROquel) 12.5 mg DAILY@0900,1700 PO Last administered on 02/10/18at 17:06; Start 02/09/18 at 17:00; Stop 02/10/18 at 17:26; Status DC Quetiapine Fumarate (SEROquel) 12.5 mg TID@0900,1300,1700 PO Last administered on 02/11/18at 17:28; Start 02/11/18 at 09:00; Stop 02/11/18 at 19:01; Status DC Quetiapine Fumarate (SEROquel) 25 mg TID@0900,1300,1700 PO Last administered on 02/12/18at 17:11; Start 02/12/18 at 09:00 Active Scripts Active Reported Haldol (Haloperidol Lactate) 5 Mg/1 Ml Ampul 5 Mg IM PRN Q6HRS PRN Docusate Sodium 100 Mg Capsule 100 Mg PO DAILY Trazodone Hcl 100 Mg Tablet 250 Mg PO QHS Loxapine (Loxapine Succinate) 10 Mg Capsule 10 Mg PO TID Ativan (Lorazepam) 1 Mg Tablet 0.5 Mg PO PRN Q4HRS PRN Ativan (Lorazepam) 2 Mg/1 Ml Vial 0.25 Ml IM PRN Q4HRS PRN Levothyroxine Sodium 25 Mcg Tablet 25 Mcg PO DAILYAC Divalproex Sodium Er (Divalproex Sodium) 500 Mg Tab.er.24h 1,500 Mg PO QHS Divalproex Sodium Er (Divalproex Sodium) 500 Mg Tab.er.24h 750 Mg PO DAILY Thiamine Hcl 100 Mg Tablet 100 Mg PO DAILY Multivitamins (Multivitamin) 1 Each Tablet 1 Each PO NICODERM CQ 14mg (Nicotine) 1 Each Patch.td24 1 Patch TD DAILY Metoprolol Tartrate 25 Mg Tablet 25 Mg PO BID Fludrocortisone Acetate 0.1 Mg Tablet 0.1 Mg PO DAILY Clonidine Hcl 0.1 Mg Tablet 0.1 Mg PO QHS Aspirin 325 Mg Tablet 325 Mg PO DAILY I have reviewed the current psychotropics carefully including drug interactions. Risk benefit ratio favors no change other than as noted in my dictated progress note. 

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
[2018-02-13 06:03] VITALS: BP 163/91
[2018-02-13] MEDS: LEVOTHYROXINE 25 MCG TABLET. PO SCH (06:16)
[2018-02-13] MEDS: DOCUSATE SODIUM 100 MG CAPSULE PO SCH (08:44)
[2018-02-13] MEDS: DIVALPROEX 125 MG CAP.SPRINK PO SCH ×3 (08:44→20:53)
[2018-02-13] MEDS: ASPIRIN 325 MG TABLET PO SCH (08:44)
[2018-02-13] MEDS: FLUDROCORTISONE 0.1 MG TABLET PO SCH (08:46)
[2018-02-13] MEDS: THIAMINE 100 MG TABLET. PO SCH (08:46)
[2018-02-13] MEDS: QUEtiapine 25 MG TABLET. PO SCH ×3 (08:46→17:12)
[2018-02-13] MEDS: SERTRALINE 50 MG TABLET. PO SCH (08:46)
[2018-02-13] MEDS: METOPROLOL TART IMMED RELEASE 25 MG TABLET PO SCH ×2 (09:00→20:51)
--- NOTE | 2018-02-13 20:40 | PN ---
DATE: 02/12/2018 PSYCHIATRIC PROGRESS NOTE This late entry 02/12/2018 covers elements not covered in my initial note. SUBJECTIVE: I met with the patient in the evening. The patient slept 7 hours previous night. He has been wandering, confused, intermittently becomes aggressive, strikes out at people around him, then redirects. REVIEW OF SYSTEMS: No CV, , pulmonary, eye, ENT system symptoms on review. Reliability poor. MENTAL STATUS EXAM: Oriented to himself. Insight, judgment, recent and remote memory, attention, concentration, fund of knowledge poor, consistent with his diagnosis mentioned in my initial note. IMPRESSION: Major neurocognitive disorder, Alzheimer, vascular with delusion, depression, behavioral disturbance; anxiety disorder, unspecified; impulse control disorder, unspecified. Rest unchanged. PLAN: No change from initial note. We will increase Seroquel if aggression persists. MAN Margy MOORE MD DR: OZZY/leah JOB#: [id number] / [id number]
[2018-02-13 20:51] VITALS: BP 151/87
[2018-02-13] MEDS: cloNIDine HCL 0.1 MG TABLET PO SCH (20:51)
[2018-02-13] MEDS: traZODone 100 MG TABLET. PO SCH (20:52)
--- NOTE | 2018-02-13 23:07 | PDOC ---
Exam Note: Dionicio Note: Please also refer to the separate dictated note~for this date of service dictated separately.~Patient seen individually. Discussed the patient with Nursing staff reviewed the chart.~Reviewed interim history and current functioning. Reviewed vital signs,~Labs/ Radiology~and current medications noted below. Continue current treatment with the changes noted in the dictated addendum note Assessment: Vital Signs: Vital Signs Date Time Temp Pulse Resp B/P (MAP) Pulse Ox O2 Delivery O2 Flow Rate FiO2 02/13/18 20:51 93 151/87 (108) 02/13/18 15:37 97.1 20 02/13/18 06:03 94 Room Air I&O Intake and Output 02/13/18 07:00 Intake Total 480 ml Balance 480 ml Intake Oral 480 ml Current Medications: Meds: Current Medications Acetaminophen (Tylenol) 650 mg PRN Q6HRS PRN PO PAIN / TEMP; Start 02/01/18 at 12:15 Multi-Ingredient Ointment (Analgesic [place]) 1 king PRN QID PRN TP MUSCLE PAIN; Start 02/01/18 at 12:15 Al Hydroxide/Mg Hydroxide (Mylanta Plus Xs) 15 ml PRN AFTMEALHC PRN PO DYSPEPSIA; Start 02/01/18 at 12:15 Magnesium Hydroxide (Milk Of Magnesia) 2,400 mg PRN QHS PRN PO CONSTIPATION Last administered on 02/13/18at 21:08; Start 02/01/18 at 12:15 Influenza Virus Vaccine (Afluria Trivalent [id number] Syringe) 0.5 ml ONCE ONCE VAX IM Last administered on 02/02/18at 10:11; Start 02/02/18 at 09:00; Stop 02/02/18 at 09:01; Status DC Aspirin (Davi Aspirin) 325 mg DAILY PO Last administered on 02/13/18at 08:44; Start 02/02/18 at 09:00 Clonidine HCl (Catapres) 0.1 mg QHS PO Last administered on 02/13/18at 20:51; Start 02/01/18 at 21:00 Fludrocortisone Acetate (Florinef) 0.1 mg DAILY PO Last administered on at 08:46; Start 02/02/18 at 09:00 Lorazepam (Ativan) 0.5 mg PRN Q4HRS PRN PO ANXIETY / AGITATION Last administered on 02/02/18at 21:32; Start 02/01/18 at 13:30; Stop 02/06/18 at 18 :59; Status DC Metoprolol Tartrate (Lopressor) 25 mg BID PO Last administered on 02/13/18at 20 :51; Start 02/01/18 at 21:00 Divalproex Sodium (Depakote Er) 1,500 mg QHS PO Last administered on at 20:16; Start 02/01/18 at 21:00; Stop 02/02/18 at 18:01; Status DC Divalproex Sodium (Depakote Er) 750 mg DAILY PO Last administered on at 09:02; Start 02/02/18 at 09:00; Stop 02/02/18 at 18:01; Status DC Docusate Sodium (Colace) 100 mg DAILY PO Last administered on 02/13/18at 08:44 ; Start 02/02/18 at 09:00 Levothyroxine Sodium (Synthroid) 25 mcg DAILY06 PO Last administered on at 06:16; Start 02/02/18 at 06:00 Loxapine Succinate (Loxitane) 10 mg TID PO Last administered on 02/02/18at 08: 58; Start 02/01/18 at 14:00; Stop 02/02/18 at 11:12; Status DC Nicotine (Nicoderm Cq 14mg) 1 patch DAILY TD ; Start 02/02/18 at 09:00; Stop 02/02/18 at 18:01; Status DC Thiamine HCl (Vitamin B-1) 100 mg DAILY PO Last administered on 02/13/18at 08: 46; Start 02/02/18 at 09:00 Trazodone HCl (Desyrel) 250 mg QHS PO Last administered on 02/13/18at 20:52; Start 02/01/18 at 21:00 Loxapine Succinate (Loxitane) 10 mg BID PO Last administered on 02/03/18at 19: 24; Start 02/02/18 at 21:00; Stop 02/04/18 at 08:00; Status DC Sertraline HCl (Zoloft) 50 mg DAILY PO Last administered on 02/06/18at 07:26; Start 02/03/18 at 09:00; Stop 02/06/18 at 17:54; Status DC Divalproex Sodium (Depakote Sprinkles) 750 mg TID@0900,1300,2100 PO Last administered on 02/13/18at 20:53; Start 02/02/18 at 21:00 Sertraline HCl (Zoloft) 75 mg DAILY PO Last administered on 02/13/18at 08:46; Start 02/07/18 at 09:00 Olanzapine (ZyPREXA ZYDIS) 2.5 mg PRN Q2HR PRN PO PSYCHOSIS/AGITATION Last administered on 02/13/18at 12:13; Start 02/08/18 at 17:15 Quetiapine Fumarate (SEROquel) 12.5 mg DAILY@0900,1700 PO Last administered on 02/10/18at 17:06; Start 02/09/18 at 17:00; Stop 02/10/18 at 17:26; Status DC Quetiapine Fumarate (SEROquel) 12.5 mg TID@0900,1300,1700 PO Last administered on 02/11/18at 17:28; Start 02/11/18 at 09:00; Stop 02/11/18 at 19:01; Status DC Quetiapine Fumarate (SEROquel) 25 mg TID@0900,1300,1700 PO Last administered on 02/13/18at 13:18; Start 02/12/18 at 09:00; Stop 02/13/18 at 16:58; Status DC Quetiapine Fumarate (SEROquel) 37.5 mg TID@0900,1300,1700 PO Last administered on 02/13/18at 17:12; Start 02/13/18 at 17:00 Active Scripts Active Reported Haldol (Haloperidol Lactate) 5 Mg/1 Ml Ampul 5 Mg IM PRN Q6HRS PRN Docusate Sodium 100 Mg Capsule 100 Mg PO DAILY Trazodone Hcl 100 Mg Tablet 250 Mg PO QHS Loxapine (Loxapine Succinate) 10 Mg Capsule 10 Mg PO TID Ativan (Lorazepam) 1 Mg Tablet 0.5 Mg PO PRN Q4HRS PRN Ativan (Lorazepam) 2 Mg/1 Ml Vial 0.25 Ml IM PRN Q4HRS PRN Levothyroxine Sodium 25 Mcg Tablet 25 Mcg PO DAILYAC Divalproex Sodium Er (Divalproex Sodium) 500 Mg Tab.er.24h 1,500 Mg PO QHS Divalproex Sodium Er (Divalproex Sodium) 500 Mg Tab.er.24h 750 Mg PO DAILY Thiamine Hcl 100 Mg Tablet 100 Mg PO DAILY Multivitamins (Multivitamin) 1 Each Tablet 1 Each PO NICODERM CQ 14mg (Nicotine) 1 Each Patch.td24 1 Patch TD DAILY Metoprolol Tartrate 25 Mg Tablet 25 Mg PO BID Fludrocortisone Acetate 0.1 Mg Tablet 0.1 Mg PO DAILY Clonidine Hcl 0.1 Mg Tablet 0.1 Mg PO QHS Aspirin 325 Mg Tablet 325 Mg PO DAILY I have reviewed the current psychotropics carefully including drug interactions. Risk benefit ratio favors no change other than as noted in my dictated progress note. 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
[2018-02-14] MEDS: LEVOTHYROXINE 25 MCG TABLET. PO SCH (04:59)
[2018-02-14 06:52] LABS: AMORPHOUS SEDIMENT,UR PRESENT /HPF; BACTERIA,URINE 0 /HPF (0-FEW); BILIRUBIN,URINE NEG (NEG); CLARITY,URINE CLEAR; COLOR,URINE AMBER; GLUCOSE,URINE NEG (NEG); HYALINE CASTS, URINE OCC /HPF; NITRITE,URINE NEG (NEG); RBC,URINE RARE /HPF (0-2); SPERM,URINE PRESENT /HPF; SQUAMOUS EPITHELIAL CELL,UR FEW /LPF; UROBILINOGEN,URINE 1 mg/dL (0.2 mg/dL); WBC,URINE 0 /HPF (0-4)
[2018-02-14] MEDS: FLUDROCORTISONE 0.1 MG TABLET PO SCH (07:56)
[2018-02-14] MEDS: THIAMINE 100 MG TABLET. PO SCH (07:56)
[2018-02-14] MEDS: SERTRALINE 50 MG TABLET. PO SCH (07:56)
[2018-02-14] MEDS: METOPROLOL TART IMMED RELEASE 25 MG TABLET PO SCH ×2 (07:57→20:36)
[2018-02-14] MEDS: QUEtiapine 25 MG TABLET. PO SCH ×3 (07:57→17:53)
[2018-02-14] MEDS: DIVALPROEX 125 MG CAP.SPRINK PO SCH ×3 (07:58→20:38)
[2018-02-14] MEDS: DOCUSATE SODIUM 100 MG CAPSULE PO SCH (07:58)
[2018-02-14] MEDS: ASPIRIN 325 MG TABLET PO SCH (07:58)
[2018-02-14 16:02] VITALS: BP 132/77
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
[2018-02-14] MEDS: cloNIDine HCL 0.1 MG TABLET PO SCH (20:36)
[2018-02-14] MEDS: traZODone 100 MG TABLET. PO SCH (20:36)
--- NOTE | 2018-02-14 23:06 | PDOC ---
Exam Note: [facility] Note: Please also refer to the separate dictated note~for this date of service dictated separately.~Patient seen individually. Discussed the patient with Nursing staff reviewed the chart.~Reviewed interim history and current functioning. Reviewed vital signs,~Labs/ Radiology~and current medications noted below. Continue current treatment with the changes noted in the dictated addendum note Assessment: Vital Signs: Vital Signs Date Time Temp Pulse Resp B/P (MAP) Pulse Ox O2 Delivery O2 Flow Rate FiO2 02/14/18 20:36 70 132/77 02/14/18 16:02 97.7 19 93 Room Air I&O Intake and Output 02/14/18 07:00 Intake Total 540 ml Output Total 200 ml Balance 340 ml Intake Oral 540 ml Output Urine Total 200 ml Labs: Laboratory Tests Test 02/14/18 06:25 Urine Collection Type U cath Urine Color [place] Urine Clarity Clear Urine pH 7.0 Urine Specific [place] 1.020 Urine Protein Neg (NEG-TRACE) Urine Glucose (UA) Neg mg/dL (NEG) Urine Ketones (Stick) Trace mg/dL (NEG) Urine Blood Neg (NEG) Urine Nitrite Neg (NEG) Urine Bilirubin Neg (NEG) Urine Urobilinogen Dipstick 1 mg/dL (0.2 mg/dL) Urine Leukocyte Esterase Neg (NEG) Urine RBC Rare /HPF (0-2) Urine WBC 0 /HPF (0-4) Urine Squamous Epithelial Cells Few /LPF Urine Amorphous Sediment Present /HPF Urine Bacteria 0 /HPF (0-FEW) Urine Hyaline Casts Occ /HPF Urine Mucus Slight /LPF Urine Sperm Present /HPF Current Medications: Meds: Current Medications Acetaminophen (Tylenol) 650 mg PRN Q6HRS PRN PO PAIN / TEMP; Start 02/01/18 at 12:15 Multi-Ingredient Ointment (Analgesic [place]) 1 king PRN QID PRN TP MUSCLE PAIN; Start 02/01/18 at 12:15 Al Hydroxide/Mg Hydroxide (Mylanta Plus Xs) 15 ml PRN AFTMEALHC PRN PO DYSPEPSIA; Start 02/01/18 at 12:15 Magnesium Hydroxide (Milk Of Magnesia) 2,400 mg PRN QHS PRN PO CONSTIPATION Last administered on 02/13/18at 21:08; Start 02/01/18 at 12:15 Influenza Virus Vaccine (Afluria Trivalent [id number] Syringe) 0.5 ml ONCE ONCE VAX IM Last administered on 02/02/18 10:11; Start 02/02/18 at 09:00; Stop 02/02/18 at 09:01; Status DC Aspirin (Davi Aspirin) 325 mg DAILY PO Last administered on 02/14/18 07:58; Start 02/02/18 at 09:00 Clonidine HCl (Catapres) 0.1 mg QHS PO Last administered on 02/14/18 20:36; Start 02/01/18 at 21:00 Fludrocortisone Acetate (Florinef) 0.1 mg DAILY PO Last administered on 07:56; Start 02/02/18 at 09:00 Lorazepam (Ativan) 0.5 mg PRN Q4HRS PRN PO ANXIETY / AGITATION Last administered on 02/02/18 21:32; Start 02/01/18 at 13:30; Stop 02/06/18 at 18 :59; Status DC Metoprolol Tartrate (Lopressor) 25 mg BID PO Last administered on 02/14/18 20 :36; Start 02/01/18 at 21:00 Divalproex Sodium (Depakote Er) 1,500 mg QHS PO Last administered on at 20:16; Start 02/01/18 at 21:00; Stop 02/02/18 at 18:01; Status DC Divalproex Sodium (Depakote Er) 750 mg DAILY PO Last administered on 09:02; Start 02/02/18 at 09:00; Stop 02/02/18 at 18:01; Status DC Docusate Sodium (Colace) 100 mg DAILY PO Last administered on 02/14/18 07:58 ; Start 02/02/18 at 09:00 Levothyroxine Sodium (Synthroid) 25 mcg DAILY06 PO Last administered on 04:59; Start 02/02/18 at 06:00 Loxapine Succinate (Loxitane) 10 mg TID PO Last administered on 02/02/18 08: 58; Start 02/01/18 at 14:00; Stop 02/02/18 at 11:12; Status DC Nicotine (Nicoderm Cq 14mg) 1 patch DAILY TD ; Start 02/02/18 at 09:00; Stop 02/02/18 at 18:01; Status DC Thiamine HCl (Vitamin B-1) 100 mg DAILY PO Last administered on 02/14/18at 07: 56; Start 02/02/18 at 09:00 Trazodone HCl (Desyrel) 250 mg QHS PO Last administered on 02/14/18at 20:36; Start 02/01/18 at 21:00 Loxapine Succinate (Loxitane) 10 mg BID PO Last administered on 02/03/18at 19: 24; Start 02/02/18 at 21:00; Stop 02/04/18 at 08:00; Status DC Sertraline HCl (Zoloft) 50 mg DAILY PO Last administered on 02/06/18at 07:26; Start 02/03/18 at 09:00; Stop 02/06/18 at 17:54; Status DC Divalproex Sodium (Depakote Sprinkles) 750 mg TID@0900,1300,2100 PO Last administered on 02/14/18at 20:38; Start 02/02/18 at 21:00 Sertraline HCl (Zoloft) 75 mg DAILY PO Last administered on 02/14/18at 07:56; Start 02/07/18 at 09:00 Olanzapine (ZyPREXA ZYDIS) 2.5 mg PRN Q2HR PRN PO PSYCHOSIS/AGITATION Last administered on 02/13/18at 12:13; Start 02/08/18 at 17:15 Quetiapine Fumarate (SEROquel) 12.5 mg DAILY@0900,1700 PO Last administered on 02/10/18at 17:06; Start 02/09/18 at 17:00; Stop 02/10/18 at 17:26; Status DC Quetiapine Fumarate (SEROquel) 12.5 mg TID@0900,1300,1700 PO Last administered on 02/11/18at 17:28; Start 02/11/18 at 09:00; Stop 02/11/18 at 19:01; Status DC Quetiapine Fumarate (SEROquel) 25 mg TID@0900,1300,1700 PO Last administered on 02/13/18at 13:18; Start 02/12/18 at 09:00; Stop 02/13/18 at 16:58; Status DC Quetiapine Fumarate (SEROquel) 37.5 mg TID@0900,1300,1700 PO Last administered on 02/14/18at 17:53; Start 02/13/18 at 17:00 Active Scripts Active Reported Haldol (Haloperidol Lactate) 5 Mg/1 Ml Ampul 5 Mg IM PRN Q6HRS PRN Docusate Sodium 100 Mg Capsule 100 Mg PO DAILY Trazodone Hcl 100 Mg Tablet 250 Mg PO QHS Loxapine (Loxapine Succinate) 10 Mg Capsule 10 Mg PO TID Ativan (Lorazepam) 1 Mg Tablet 0.5 Mg PO PRN Q4HRS PRN Ativan (Lorazepam) 2 Mg/1 Ml Vial 0.25 Ml IM PRN Q4HRS PRN Levothyroxine Sodium 25 Mcg Tablet 25 Mcg PO DAILYAC Divalproex Sodium Er (Divalproex Sodium) 500 Mg Tab.er.24h 1,500 Mg PO QHS Divalproex Sodium Er (Divalproex Sodium) 500 Mg Tab.er.24h 750 Mg PO DAILY Thiamine Hcl 100 Mg Tablet 100 Mg PO DAILY Multivitamins (Multivitamin) 1 Each Tablet 1 Each PO NICODERM CQ 14mg (Nicotine) 1 Each Patch.td24 1 Patch TD DAILY Metoprolol Tartrate 25 Mg Tablet 25 Mg PO BID Fludrocortisone Acetate 0.1 Mg Tablet 0.1 Mg PO DAILY Clonidine Hcl 0.1 Mg Tablet 0.1 Mg PO QHS Aspirin 325 Mg Tablet 325 Mg PO DAILY I have reviewed the current psychotropics carefully including drug interactions. Risk benefit ratio favors no change other than as noted in my dictated progress note. 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
[2018-02-15 05:44] VITALS: BP 101/63
[2018-02-15] MEDS: LEVOTHYROXINE 25 MCG TABLET. PO SCH (05:46)
[2018-02-15] MEDS: METOPROLOL TART IMMED RELEASE 25 MG TABLET PO SCH ×2 (09:00→20:25)
[2018-02-15] MEDS: DOCUSATE SODIUM 100 MG CAPSULE PO SCH (09:07)
[2018-02-15] MEDS: ASPIRIN 325 MG TABLET PO SCH (09:07)
[2018-02-15] MEDS: DIVALPROEX 125 MG CAP.SPRINK PO SCH ×3 (09:08→20:26)
[2018-02-15] MEDS: FLUDROCORTISONE 0.1 MG TABLET PO SCH (09:08)
[2018-02-15] MEDS: THIAMINE 100 MG TABLET. PO SCH (09:08)
[2018-02-15] MEDS: SERTRALINE 50 MG TABLET. PO SCH (09:08)
[2018-02-15] MEDS: QUEtiapine 25 MG TABLET. PO SCH ×3 (09:09→17:49)
[2018-02-15 16:33] VITALS: BP 112/77
[2018-02-15] MEDS: traZODone 100 MG TABLET. PO SCH (20:25)
[2018-02-15] MEDS: cloNIDine HCL 0.1 MG TABLET PO SCH (20:29)
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
--- NOTE | 2018-02-15 23:17 | PDOC ---
Exam Note: [facility] Note: Please also refer to the separate dictated note~for this date of service dictated separately.~Patient seen individually. Discussed the patient with Nursing staff reviewed the chart.~Reviewed interim history and current functioning. Reviewed vital signs,~Labs/ Radiology~and current medications noted below. Continue current treatment with the changes noted in the dictated addendum note Assessment: Vital Signs: Vital Signs Date Time Temp Pulse Resp B/P (MAP) Pulse Ox O2 Delivery O2 Flow Rate FiO2 02/15/18 20:29 56 112/77 02/15/18 16:33 96.9 18 92 02/14/18 16:02 Room Air I&O Intake and Output 02/15/18 07:00 Intake Total 1080 ml Balance 1080 ml Intake Oral 1080 ml # Bowel Movements 1 Current Medications: Meds: Current Medications Acetaminophen (Tylenol) 650 mg PRN Q6HRS PRN PO PAIN / TEMP; Start 02/01/18 at 12:15 Multi-Ingredient Ointment (Analgesic [place]) 1 king PRN QID PRN TP MUSCLE PAIN; Start 02/01/18 at 12:15 Al Hydroxide/Mg Hydroxide (Mylanta Plus Xs) 15 ml PRN AFTMEALHC PRN PO DYSPEPSIA; Start 02/01/18 at 12:15 Magnesium Hydroxide (Milk Of Magnesia) 2,400 mg PRN QHS PRN PO CONSTIPATION Last administered on 02/13/18at 21:08; Start 02/01/18 at 12:15 Influenza Virus Vaccine (Afluria Trivalent [id number] Syringe) 0.5 ml ONCE ONCE VAX IM Last administered on 02/02/18at 10:11; Start 02/02/18 at 09:00; Stop 02/02/18 at 09:01; Status DC Aspirin (Davi Aspirin) 325 mg DAILY PO Last administered on 02/15/18at 09:07; Start 02/02/18 at 09:00 Clonidine HCl (Catapres) 0.1 mg QHS PO Last administered on 02/15/18at 20:29; Start 02/01/18 at 21:00 Fludrocortisone Acetate (Florinef) 0.1 mg DAILY PO Last administered on at 09:08; Start 02/02/18 at 09:00 Lorazepam (Ativan) 0.5 mg PRN Q4HRS PRN PO ANXIETY / AGITATION Last administered on 02/02/18at 21:32; Start 02/01/18 at 13:30; Stop 02/06/18 at 18 :59; Status DC Metoprolol Tartrate (Lopressor) 25 mg BID PO Last administered on 02/15/18at 20 :25; Start 02/01/18 at 21:00 Divalproex Sodium (Depakote Er) 1,500 mg QHS PO Last administered on at 20:16; Start 02/01/18 at 21:00; Stop 02/02/18 at 18:01; Status DC Divalproex Sodium (Depakote Er) 750 mg DAILY PO Last administered on at 09:02; Start 02/02/18 at 09:00; Stop 02/02/18 at 18:01; Status DC Docusate Sodium (Colace) 100 mg DAILY PO Last administered on 02/15/18at 09:07 ; Start 02/02/18 at 09:00 Levothyroxine Sodium (Synthroid) 25 mcg DAILY06 PO Last administered on at 05:46; Start 02/02/18 at 06:00 Loxapine Succinate (Loxitane) 10 mg TID PO Last administered on 02/02/18at 08: 58; Start 02/01/18 at 14:00; Stop 02/02/18 at 11:12; Status DC Nicotine (Nicoderm Cq 14mg) 1 patch DAILY TD ; Start 02/02/18 at 09:00; Stop 02/02/18 at 18:01; Status DC Thiamine HCl (Vitamin B-1) 100 mg DAILY PO Last administered on 02/15/18at 09: 08; Start 02/02/18 at 09:00 Trazodone HCl (Desyrel) 250 mg QHS PO Last administered on 02/15/18at 20:25; Start 02/01/18 at 21:00 Loxapine Succinate (Loxitane) 10 mg BID PO Last administered on 02/03/18at 19: 24; Start 02/02/18 at 21:00; Stop 02/04/18 at 08:00; Status DC Sertraline HCl (Zoloft) 50 mg DAILY PO Last administered on 02/06/18at 07:26; Start 02/03/18 at 09:00; Stop 02/06/18 at 17:54; Status DC Divalproex Sodium (Depakote Sprinkles) 750 mg TID@0900,1300,2100 PO Last administered on 02/15/18at 20:26; Start 02/02/18 at 21:00 Sertraline HCl (Zoloft) 75 mg DAILY PO Last administered on 02/15/18at 09:08; Start 02/07/18 at 09:00 Olanzapine (ZyPREXA ZYDIS) 2.5 mg PRN Q2HR PRN PO PSYCHOSIS/AGITATION Last administered on 02/13/18at 12:13; Start 02/08/18 at 17:15 Quetiapine Fumarate (SEROquel) 12.5 mg DAILY@0900,1700 PO Last administered on 02/10/18at 17:06; Start 02/09/18 at 17:00; Stop 02/10/18 at 17:26; Status DC Quetiapine Fumarate (SEROquel) 12.5 mg TID@0900,1300,1700 PO Last administered on 02/11/18at 17:28; Start 02/11/18 at 09:00; Stop 02/11/18 at 19:01; Status DC Quetiapine Fumarate (SEROquel) 25 mg TID@0900,1300,1700 PO Last administered on 02/13/18at 13:18; Start 02/12/18 at 09:00; Stop 02/13/18 at 16:58; Status DC Quetiapine Fumarate (SEROquel) 37.5 mg TID@0900,1300,1700 PO Last administered on 02/15/18at 17:49; Start 02/13/18 at 17:00 Active Scripts Active Reported Haldol (Haloperidol Lactate) 5 Mg/1 Ml Ampul 5 Mg IM PRN Q6HRS PRN Docusate Sodium 100 Mg Capsule 100 Mg PO DAILY Trazodone Hcl 100 Mg Tablet 250 Mg PO QHS Loxapine (Loxapine Succinate) 10 Mg Capsule 10 Mg PO TID Ativan (Lorazepam) 1 Mg Tablet 0.5 Mg PO PRN Q4HRS PRN Ativan (Lorazepam) 2 Mg/1 Ml Vial 0.25 Ml IM PRN Q4HRS PRN Levothyroxine Sodium 25 Mcg Tablet 25 Mcg PO DAILYAC Divalproex Sodium Er (Divalproex Sodium) 500 Mg Tab.er.24h 1,500 Mg PO QHS Divalproex Sodium Er (Divalproex Sodium) 500 Mg Tab.er.24h 750 Mg PO DAILY Thiamine Hcl 100 Mg Tablet 100 Mg PO DAILY Multivitamins (Multivitamin) 1 Each Tablet 1 Each PO NICODERM CQ 14mg (Nicotine) 1 Each Patch.td24 1 Patch TD DAILY Metoprolol Tartrate 25 Mg Tablet 25 Mg PO BID Fludrocortisone Acetate 0.1 Mg Tablet 0.1 Mg PO DAILY Clonidine Hcl 0.1 Mg Tablet 0.1 Mg PO QHS Aspirin 325 Mg Tablet 325 Mg PO DAILY I have reviewed the current psychotropics carefully including drug interactions. Risk benefit ratio favors no change other than as noted in my dictated progress note. 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
[2018-02-16 05:33] VITALS: BP 123/74
[2018-02-16] MEDS: LEVOTHYROXINE 25 MCG TABLET. PO SCH (06:00)
[2018-02-16] MEDS: FLUDROCORTISONE 0.1 MG TABLET PO SCH (08:09)
[2018-02-16] MEDS: DIVALPROEX 125 MG CAP.SPRINK PO SCH ×3 (08:10→21:05)
[2018-02-16] MEDS: SERTRALINE 50 MG TABLET. PO SCH (08:10)
[2018-02-16] MEDS: QUEtiapine 25 MG TABLET. PO SCH ×3 (08:11→17:19)
[2018-02-16] MEDS: THIAMINE 100 MG TABLET. PO SCH (08:11)
[2018-02-16] MEDS: DOCUSATE SODIUM 100 MG CAPSULE PO SCH (08:11)
[2018-02-16] MEDS: ASPIRIN 325 MG TABLET PO SCH (08:11)
[2018-02-16] MEDS: METOPROLOL TART IMMED RELEASE 25 MG TABLET PO SCH ×2 (08:12→08:13)
[2018-02-16 16:07] VITALS: BP 135/72
--- NOTE | 2018-02-16 20:06 | PN ---
DATE: 02/15/2018 PSYCHIATRIC PROGRESS NOTE This late entry 02/15/2018 covers elements not covered in my initial note. SUBJECTIVE: I met with the patient in the evening. The patient slept 5-3/4 hours previous night, but then was somewhat sleeping through breakfast and lunch time. He does get adequate sleep, but just the cycle has turned around. REVIEW OF SYSTEMS: No CV, , pulmonary, eye, ENT system symptoms on review. Reliability poor. MENTAL STATUS EXAM: Oriented to himself. Insight, judgment, recent and remote memory, attention, concentration, fund of knowledge poor, consistent with his diagnosis mentioned in my initial note. IMPRESSION: Major neurocognitive disorder, Alzheimer, vascular with delusion, depression, behavioral disturbance; anxiety disorder, unspecified; impulse control disorder, unspecified. PLAN: No change from initial note continue psychotropics from initial note. Valproic acid level therapeutic at 60. MAN Margy MOORE MD DR: OZZY/leah JOB#: [id number] / [id number]
[2018-02-16] MEDS: traZODone 100 MG TABLET. PO SCH (21:06)
[2018-02-16] MEDS: cloNIDine HCL 0.1 MG TABLET PO SCH (21:07)
[2018-02-16] MEDS: MIRTAZAPINE 7.5 MG TABLET. PO SCH (21:09)
--- NOTE | 2018-02-16 23:07 | PDOC ---
Exam Note: [facility] Note: Please also refer to the separate dictated note~for this date of service dictated separately.~Patient seen individually. Discussed the patient with Nursing staff reviewed the chart.~Reviewed interim history and current functioning. Reviewed vital signs,~Labs/ Radiology~and current medications noted below. Continue current treatment with the changes noted in the dictated addendum note Assessment: Vital Signs: Vital Signs Date Time Temp Pulse Resp B/P (MAP) Pulse Ox O2 Delivery O2 Flow Rate FiO2 02/16/18 21:07 66 135/72 02/16/18 16:07 97.2 18 92 Room Air I&O Intake and Output 02/16/18 07:00 Intake Total 480 ml Balance 480 ml Intake Oral 480 ml Current Medications: Meds: Current Medications Acetaminophen (Tylenol) 650 mg PRN Q6HRS PRN PO PAIN / TEMP; Start 02/01/18 at 12:15 Multi-Ingredient Ointment (Analgesic [place]) 1 king PRN QID PRN TP MUSCLE PAIN; Start 02/01/18 at 12:15 Al Hydroxide/Mg Hydroxide (Mylanta Plus Xs) 15 ml PRN AFTMEALHC PRN PO DYSPEPSIA; Start 02/01/18 at 12:15 Magnesium Hydroxide (Milk Of Magnesia) 2,400 mg PRN QHS PRN PO CONSTIPATION Last administered on 02/13/18at 21:08; Start 02/01/18 at 12:15 Influenza Virus Vaccine (Afluria Trivalent [id number] Syringe) 0.5 ml ONCE ONCE VAX IM Last administered on 02/02/18at 10:11; Start 02/02/18 at 09:00; Stop 02/02/18 at 09:01; Status DC Aspirin (Davi Aspirin) 325 mg DAILY PO Last administered on 02/16/18at 08:11; Start 02/02/18 at 09:00 Clonidine HCl (Catapres) 0.1 mg QHS PO Last administered on 02/16/18at 21:07; Start 02/01/18 at 21:00 Fludrocortisone Acetate (Florinef) 0.1 mg DAILY PO Last administered on at 08:09; Start 02/02/18 at 09:00 Lorazepam (Ativan) 0.5 mg PRN Q4HRS PRN PO ANXIETY / AGITATION Last administered on 02/02/18at 21:32; Start 02/01/18 at 13:30; Stop 02/06/18 at 18 :59; Status DC Metoprolol Tartrate (Lopressor) 25 mg BID PO Last administered on 02/16/18at 08: 12; Start 02/01/18 at 21:00 Divalproex Sodium (Depakote Er) 1,500 mg QHS PO Last administered on at 20:16; Start 02/01/18 at 21:00; Stop 02/02/18 at 18:01; Status DC Divalproex Sodium (Depakote Er) 750 mg DAILY PO Last administered on at 09:02; Start 02/02/18 at 09:00; Stop 02/02/18 at 18:01; Status DC Docusate Sodium (Colace) 100 mg DAILY PO Last administered on 02/16/18at 08:11; Start 02/02/18 at 09:00 Levothyroxine Sodium (Synthroid) 25 mcg DAILY06 PO Last administered on at 06:00; Start 02/02/18 at 06:00 Loxapine Succinate (Loxitane) 10 mg TID PO Last administered on 02/02/18at 08: 58; Start 02/01/18 at 14:00; Stop 02/02/18 at 11:12; Status DC Nicotine (Nicoderm Cq 14mg) 1 patch DAILY TD ; Start 02/02/18 at 09:00; Stop 02/02/18 at 18:01; Status DC Thiamine HCl (Vitamin B-1) 100 mg DAILY PO Last administered on 02/16/18at 08:11 ; Start 02/02/18 at 09:00 Trazodone HCl (Desyrel) 250 mg QHS PO Last administered on 02/16/18at 21:06; Start 02/01/18 at 21:00 Loxapine Succinate (Loxitane) 10 mg BID PO Last administered on 02/03/18at 19: 24; Start 02/02/18 at 21:00; Stop 02/04/18 at 08:00; Status DC Sertraline HCl (Zoloft) 50 mg DAILY PO Last administered on 02/06/18at 07:26; Start 02/03/18 at 09:00; Stop 02/06/18 at 17:54; Status DC Divalproex Sodium (Depakote Sprinkles) 750 mg TID@0900,1300,2100 PO Last administered on 02/16/18at 21:05; Start 02/02/18 at 21:00 Sertraline HCl (Zoloft) 75 mg DAILY PO Last administered on 02/16/18at 08:10; Start 02/07/18 at 09:00 Olanzapine (ZyPREXA ZYDIS) 2.5 mg PRN Q2HR PRN PO PSYCHOSIS/AGITATION Last administered on 02/13/18at 12:13; Start 02/08/18 at 17:15 Quetiapine Fumarate (SEROquel) 12.5 mg DAILY@0900,1700 PO Last administered on 02/10/18at 17:06; Start 02/09/18 at 17:00; Stop 02/10/18 at 17:26; Status DC Quetiapine Fumarate (SEROquel) 12.5 mg TID@0900,1300,1700 PO Last administered on 02/11/18at 17:28; Start 02/11/18 at 09:00; Stop 02/11/18 at 19:01; Status DC Quetiapine Fumarate (SEROquel) 25 mg TID@0900,1300,1700 PO Last administered on 02/13/18at 13:18; Start 02/12/18 at 09:00; Stop 02/13/18 at 16:58; Status DC Quetiapine Fumarate (SEROquel) 37.5 mg TID@0900,1300,1700 PO Last administered on 02/16/18at 17:19; Start 02/13/18 at 17:00 Mirtazapine (Remeron) 7.5 mg QHS PO Last administered on 02/16/18at 21:09; Start 02/16/18 at 21:00 Active Scripts Active Reported Haldol (Haloperidol Lactate) 5 Mg/1 Ml Ampul 5 Mg IM PRN Q6HRS PRN Docusate Sodium 100 Mg Capsule 100 Mg PO DAILY Trazodone Hcl 100 Mg Tablet 250 Mg PO QHS Loxapine (Loxapine Succinate) 10 Mg Capsule 10 Mg PO TID Ativan (Lorazepam) 1 Mg Tablet 0.5 Mg PO PRN Q4HRS PRN Ativan (Lorazepam) 2 Mg/1 Ml Vial 0.25 Ml IM PRN Q4HRS PRN Levothyroxine Sodium 25 Mcg Tablet 25 Mcg PO DAILYAC Divalproex Sodium Er (Divalproex Sodium) 500 Mg Tab.er.24h 1,500 Mg PO QHS Divalproex Sodium Er (Divalproex Sodium) 500 Mg Tab.er.24h 750 Mg PO DAILY Thiamine Hcl 100 Mg Tablet 100 Mg PO DAILY Multivitamins (Multivitamin) 1 Each Tablet 1 Each PO NICODERM CQ 14mg (Nicotine) 1 Each Patch.td24 1 Patch TD DAILY Metoprolol Tartrate 25 Mg Tablet 25 Mg PO BID Fludrocortisone Acetate 0.1 Mg Tablet 0.1 Mg PO DAILY Clonidine Hcl 0.1 Mg Tablet 0.1 Mg PO QHS Aspirin 325 Mg Tablet 325 Mg PO DAILY I have reviewed the current psychotropics carefully including drug interactions. Risk benefit ratio favors no change other than as noted in my dictated progress note. 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
[2018-02-17] MEDS: LEVOTHYROXINE 25 MCG TABLET. PO SCH (05:45)
[2018-02-17 06:17] VITALS: BP 164/83
[2018-02-17] MEDS: QUEtiapine 25 MG TABLET. PO SCH ×4 (09:06→16:56)
[2018-02-17] MEDS: THIAMINE 100 MG TABLET. PO SCH ×2 (09:07→12:18)
[2018-02-17] MEDS: ASPIRIN 325 MG TABLET PO SCH ×2 (09:07→12:17)
[2018-02-17] MEDS: METOPROLOL TART IMMED RELEASE 25 MG TABLET PO SCH ×3 (09:07→19:43)
[2018-02-17] MEDS: SERTRALINE 50 MG TABLET. PO SCH ×2 (09:07→12:18)
[2018-02-17] MEDS: FLUDROCORTISONE 0.1 MG TABLET PO SCH ×2 (09:07→12:17)
[2018-02-17] MEDS: DOCUSATE SODIUM 100 MG CAPSULE PO SCH ×2 (09:07→12:17)
[2018-02-17] MEDS: DIVALPROEX 125 MG CAP.SPRINK PO SCH ×5 (09:08→19:43)
[2018-02-17] MEDS: cloNIDine HCL 0.1 MG TABLET PO SCH (19:42)
[2018-02-17] MEDS: traZODone 100 MG TABLET. PO SCH (19:43)
[2018-02-17] MEDS: MIRTAZAPINE 7.5 MG TABLET. PO SCH (19:43)
[2018-02-17 21:00] LABS: AMORPHOUS SEDIMENT,UR PRESENT /HPF; BACTERIA,URINE 0 /HPF (0-FEW); BILIRUBIN,URINE NEG (NEG); CLARITY,URINE CLEAR; COLOR,URINE YELLOW; GLUCOSE,URINE NEG (NEG); NITRITE,URINE NEG (NEG); RBC,URINE 0 /HPF (0-2); UROBILINOGEN,URINE 1 mg/dL (0.2 mg/dL); WBC,URINE RARE /HPF (0-4)
--- NOTE | 2018-02-17 21:01 | PN ---
DATE: 02/16/2018 PSYCHIATRIC PROGRESS NOTE This late entry 02/16/2018 covers elements not covered in my initial note. SUBJECTIVE: I met with the patient in the evening and staffed at a treatment team meeting with the entire team in the morning. The patient slept 5 hours previous night. He gets quite aggressive with cares more so in the evening, better during the day. Previous day, he slept late into the morning. REVIEW OF SYSTEMS: No CV, , pulmonary, eye, ENT system symptoms on review. Reliability poor. MENTAL STATUS EXAM: Oriented to himself. Insight, judgment, recent and remote memory, attention, concentration, fund of knowledge poor, consistent with his diagnosis mentioned in my initial note. IMPRESSION: Major neurocognitive disorder, Alzheimer, vascular with delusion, depression, behavioral disturbance; anxiety disorder, unspecified; impulse control disorder, unspecified. Rest unchanged. PLAN: Start Remeron 7.5 mg p.o. at bedtime. Continue rest of psychotropics unchanged. AALIYAH MOORE MD DR: OZZY/leah JOB#: [id number] / [id number]
--- NOTE | 2018-02-17 23:04 | PDOC ---
Exam Note: [facility] Note: Please also refer to the separate dictated note~for this date of service dictated separately.~Patient seen individually. Discussed the patient with Nursing staff reviewed the chart.~Reviewed interim history and current functioning. Reviewed vital signs,~Labs/ Radiology~and current medications noted below. Continue current treatment with the changes noted in the dictated addendum note Assessment: Vital Signs: Vital Signs Date Time Temp Pulse Resp B/P (MAP) Pulse Ox O2 Delivery O2 Flow Rate FiO2 02/17/18 19:43 61 164/83 02/17/18 15:47 97.2 18 02/17/18 06:17 96 Room Air I&O Intake and Output 02/17/18 07:00 Intake Total 600 ml Balance 600 ml Intake Oral 600 ml # Voids 1 Labs: Laboratory Tests Test 02/17/18 20:48 Urine Collection Type Unknown Urine Color Yellow Urine Clarity Clear Urine pH 7.0 Urine Specific [place] 1.020 Urine Protein Neg (NEG-TRACE) Urine Glucose (UA) Neg mg/dL (NEG) Urine Ketones (Stick) 15 mg/dL (NEG) Urine Blood Neg (NEG) Urine Nitrite Neg (NEG) Urine Bilirubin Neg (NEG) Urine Urobilinogen Dipstick 1 mg/dL (0.2 mg/dL) Urine Leukocyte Esterase Neg (NEG) Urine RBC 0 /HPF (0-2) Urine WBC Rare /HPF (0-4) Urine Squamous Epithelial Cells None /LPF Urine Amorphous Sediment Present /HPF Urine Bacteria 0 /HPF (0-FEW) Urine Mucus Slight /LPF Current Medications: Meds: Current Medications Acetaminophen (Tylenol) 650 mg PRN Q6HRS PRN PO PAIN / TEMP; Start 02/01/18 at 12:15 Multi-Ingredient Ointment (Analgesic [place]) 1 king PRN QID PRN TP MUSCLE PAIN; Start 02/01/18 at 12:15 Al Hydroxide/Mg Hydroxide (Mylanta Plus Xs) 15 ml PRN AFTMEALHC PRN PO DYSPEPSIA; Start 02/01/18 at 12:15 Magnesium Hydroxide (Milk Of Magnesia) 2,400 mg PRN QHS PRN PO CONSTIPATION Last administered on 02/13/18at 21:08; Start 02/01/18 at 12:15 Influenza Virus Vaccine (Afluria Trivalent [id number] Syringe) 0.5 ml ONCE ONCE VAX IM Last administered on 02/02/18at 10:11; Start 02/02/18 at 09:00; Stop 02/02/18 at 09:01; Status DC Aspirin (Davi Aspirin) 325 mg DAILY PO Last administered on 02/17/18at 12:17; Start 02/02/18 at 09:00 Clonidine HCl (Catapres) 0.1 mg QHS PO Last administered on 02/17/18at 19:42; Start 02/01/18 at 21:00 Fludrocortisone Acetate (Florinef) 0.1 mg DAILY PO Last administered on 12:17; Start 02/02/18 at 09:00 Lorazepam (Ativan) 0.5 mg PRN Q4HRS PRN PO ANXIETY / AGITATION Last administered on 02/02/18at 21:32; Start 02/01/18 at 13:30; Stop 02/06/18 at 18 :59; Status DC Metoprolol Tartrate (Lopressor) 25 mg BID PO Last administered on 02/17/18at 19: 43; Start 02/01/18 at 21:00 Divalproex Sodium (Depakote Er) 1,500 mg QHS PO Last administered on at 20:16; Start 02/01/18 at 21:00; Stop 02/02/18 at 18:01; Status DC Divalproex Sodium (Depakote Er) 750 mg DAILY PO Last administered on at 09:02; Start 02/02/18 at 09:00; Stop 02/02/18 at 18:01; Status DC Docusate Sodium (Colace) 100 mg DAILY PO Last administered on 02/17/18at 12:17; Start 02/02/18 at 09:00 Levothyroxine Sodium (Synthroid) 25 mcg DAILY06 PO Last administered on at 05:45; Start 02/02/18 at 06:00 Loxapine Succinate (Loxitane) 10 mg TID PO Last administered on 02/02/18at 08: 58; Start 02/01/18 at 14:00; Stop 02/02/18 at 11:12; Status DC Nicotine (Nicoderm Cq 14mg) 1 patch DAILY TD ; Start 02/02/18 at 09:00; Stop 02/02/18 at 18:01; Status DC Thiamine HCl (Vitamin B-1) 100 mg DAILY PO Last administered on 02/17/18at 12:18 ; Start 02/02/18 at 09:00 Trazodone HCl (Desyrel) 250 mg QHS PO Last administered on 02/17/18at 19:43; Start 02/01/18 at 21:00 Loxapine Succinate (Loxitane) 10 mg BID PO Last administered on 02/03/18at 19: 24; Start 02/02/18 at 21:00; Stop 02/04/18 at 08:00; Status DC Sertraline HCl (Zoloft) 50 mg DAILY PO Last administered on 02/06/18at 07:26; Start 02/03/18 at 09:00; Stop 02/06/18 at 17:54; Status DC Divalproex Sodium (Depakote Sprinkles) 750 mg TID@0900,1300,2100 PO Last administered on 02/17/18at 19:43; Start 02/02/18 at 21:00 Sertraline HCl (Zoloft) 75 mg DAILY PO Last administered on 02/17/18at 12:18; Start 02/07/18 at 09:00 Olanzapine (ZyPREXA ZYDIS) 2.5 mg PRN Q2HR PRN PO PSYCHOSIS/AGITATION Last administered on 02/17/18at 20:08; Start 02/08/18 at 17:15 Quetiapine Fumarate (SEROquel) 12.5 mg DAILY@0900,1700 PO Last administered on 02/10/18at 17:06; Start 02/09/18 at 17:00; Stop 02/10/18 at 17:26; Status DC Quetiapine Fumarate (SEROquel) 12.5 mg TID@0900,1300,1700 PO Last administered on 02/11/18at 17:28; Start 02/11/18 at 09:00; Stop 02/11/18 at 19:01; Status DC Quetiapine Fumarate (SEROquel) 25 mg TID@0900,1300,1700 PO Last administered on 02/13/18at 13:18; Start 02/12/18 at 09:00; Stop 02/13/18 at 16:58; Status DC Quetiapine Fumarate (SEROquel) 37.5 mg TID@0900,1300,1700 PO Last administered on 02/17/18at 16:56; Start 02/13/18 at 17:00 Mirtazapine (Remeron) 7.5 mg QHS PO Last administered on 02/17/18at 19:43; Start 02/16/18 at 21:00 Active Scripts Active Reported Haldol (Haloperidol Lactate) 5 Mg/1 Ml Ampul 5 Mg IM PRN Q6HRS PRN Docusate Sodium 100 Mg Capsule 100 Mg PO DAILY Trazodone Hcl 100 Mg Tablet 250 Mg PO QHS Loxapine (Loxapine Succinate) 10 Mg Capsule 10 Mg PO TID Ativan (Lorazepam) 1 Mg Tablet 0.5 Mg PO PRN Q4HRS PRN Ativan (Lorazepam) 2 Mg/1 Ml Vial 0.25 Ml IM PRN Q4HRS PRN Levothyroxine Sodium 25 Mcg Tablet 25 Mcg PO DAILYAC Divalproex Sodium Er (Divalproex Sodium) 500 Mg Tab.er.24h 1,500 Mg PO QHS Divalproex Sodium Er (Divalproex Sodium) 500 Mg Tab.er.24h 750 Mg PO DAILY Thiamine Hcl 100 Mg Tablet 100 Mg PO DAILY Multivitamins (Multivitamin) 1 Each Tablet 1 Each PO NICODERM CQ 14mg (Nicotine) 1 Each Patch.td24 1 Patch TD DAILY Metoprolol Tartrate 25 Mg Tablet 25 Mg PO BID Fludrocortisone Acetate 0.1 Mg Tablet 0.1 Mg PO DAILY Clonidine Hcl 0.1 Mg Tablet 0.1 Mg PO QHS Aspirin 325 Mg Tablet 325 Mg PO DAILY I have reviewed the current psychotropics carefully including drug interactions. Risk benefit ratio favors no change other than as noted in my dictated progress note. 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
[2018-02-18] MEDS: LEVOTHYROXINE 25 MCG TABLET. PO SCH ×2 (04:50→08:47)
[2018-02-18] MEDS: FLUDROCORTISONE 0.1 MG TABLET PO SCH (08:47)
[2018-02-18] MEDS: DOCUSATE SODIUM 100 MG CAPSULE PO SCH (08:47)
[2018-02-18] MEDS: DIVALPROEX 125 MG CAP.SPRINK PO SCH ×3 (08:47→20:56)
[2018-02-18] MEDS: ASPIRIN 325 MG TABLET PO SCH (08:47)
[2018-02-18] MEDS: THIAMINE 100 MG TABLET. PO SCH (08:48)
[2018-02-18] MEDS: QUEtiapine 25 MG TABLET. PO SCH ×3 (08:48→16:22)
[2018-02-18] MEDS: SERTRALINE 50 MG TABLET. PO SCH (08:50)
[2018-02-18] MEDS: METOPROLOL TART IMMED RELEASE 25 MG TABLET PO SCH ×2 (09:00→20:55)
[2018-02-18 09:23] LABS: BASO % 1 % (0-3); EOS # 0.8 x10^3/uL (0.0-0.7); EOS % 12 % (0-3); HEMATOCRIT 40.2 % (39.0-53.0); HEMOGLOBIN 13.1 g/dL (13.0-17.5); LYMPH # 2.2 x10^3/uL (1.0-4.8); LYMPH % 31 % (24-48); MEAN CORPUSCULAR HEMOGLOBIN 31 pg (25-35); MEAN CORPUSCULAR HGB CONC 33 g/dL (31-37); MEAN CORPUSCULAR VOLUME 94 fL (79-100); MONO # 0.7 x10^3/uL (0.0-1.1); MONO % 10 % (0-9); NEUT # 3.3 x10^3uL (1.8-7.7); NEUT % 47 % (31-73); PLATELET COUNT 229 x10^3/uL (140-400); RED BLOOD COUNT 4.29 x10^6/uL (4.30-5.70)
[2018-02-18 09:42] LABS: ALBUMIN 3.4 g/dL (3.4-5.0); ALBUMIN/GLOBULIN RATIO 0.9 (1.0-1.7); CALCIUM 8.8 mg/dL (8.5-10.1); GFR 74.3; POTASSIUM 4.2 mmol/L (3.5-5.1); TOTAL BILIRUBIN 0.2 mg/dL (0.2-1.0)
[2018-02-18] MEDS: traZODone 100 MG TABLET. PO SCH (20:56)
[2018-02-18] MEDS: MIRTAZAPINE 7.5 MG TABLET. PO SCH (20:56)
[2018-02-18] MEDS: cloNIDine HCL 0.1 MG TABLET PO SCH (20:57)
--- NOTE | 2018-02-18 23:07 | PDOC ---
Exam Note: [facility] Note: Please also refer to the separate dictated note~for this date of service dictated separately.~Patient seen individually. Discussed the patient with Nursing staff reviewed the chart.~Reviewed interim history and current functioning. Reviewed vital signs,~Labs/ Radiology~and current medications noted below. Continue current treatment with the changes noted in the dictated addendum note Assessment: Vital Signs: Vital Signs Date Time Temp Pulse Resp B/P (MAP) Pulse Ox O2 Delivery O2 Flow Rate FiO2 02/18/18 20:57 125 72/80 02/17/18 15:47 97.2 18 02/17/18 06:17 96 Room Air I&O Intake and Output 02/18/18 07:00 Intake Total 1380 ml Balance 1380 ml Intake Oral 1380 ml # Voids 3 Labs: Laboratory Tests Test 02/18/18 09:09 White Blood Count 7.0 x10^3/uL (4.0-11.0) Red Blood Count 4.29 x10^6/uL (4.30-5.70) L Hemoglobin 13.1 g/dL (13.0-17.5) Hematocrit 40.2 % (39.0-53.0) Mean Corpuscular Volume 94 fL (79-100) Mean Corpuscular Hemoglobin 31 pg (25-35) Mean Corpuscular Hemoglobin Concent 33 g/dL (31-37) Red Cell Distribution Width 14.0 % (11.5-14.5) Platelet Count 229 x10^3/uL (140-400) Neutrophils (%) (Auto) 47 % (31-73) Lymphocytes (%) (Auto) 31 % (24-48) Monocytes (%) (Auto) 10 % (0-9) H Eosinophils (%) (Auto) 12 % (0-3) H Basophils (%) (Auto) 1 % (0-3) Neutrophils # (Auto) 3.3 x10^3uL (1.8-7.7) Lymphocytes # (Auto) 2.2 x10^3/uL (1.0-4.8) Monocytes # (Auto) 0.7 x10^3/uL (0.0-1.1) Eosinophils # (Auto) 0.8 x10^3/uL (0.0-0.7) H Basophils # (Auto) 0.0 x10^3/uL (0.0-0.2) Sodium Level 143 mmol/L (136-145) Potassium Level 4.2 mmol/L (3.5-5.1) Chloride Level 104 mmol/L (98-107) Carbon Dioxide Level 29 mmol/L (21-32) Anion Gap 10 (6-14) Blood Urea Nitrogen 22 mg/dL (8-26) Creatinine 1.0 mg/dL (0.7-1.3) Estimated GFR (Cockcroft-Gault) 74.3 BUN/Creatinine Ratio 22 (6-20) H Glucose Level 133 mg/dL (70-99) H Calcium Level 8.8 mg/dL (8.5-10.1) Total Bilirubin 0.2 mg/dL (0.2-1.0) Aspartate Amino Transferase (AST) 16 U/L (15-37) Alanine Aminotransferase (ALT) 21 U/L (16-63) Alkaline Phosphatase 58 U/L (46-116) Total Protein 7.0 g/dL (6.4-8.2) Albumin 3.4 g/dL (3.4-5.0) Albumin/Globulin Ratio 0.9 (1.0-1.7) L Current Medications: Meds: Current Medications Acetaminophen (Tylenol) 650 mg PRN Q6HRS PRN PO PAIN / TEMP; Start 02/01/18 at 12:15 Multi-Ingredient Ointment (Analgesic [place]) 1 king PRN QID PRN TP MUSCLE PAIN; Start 02/01/18 at 12:15 Al Hydroxide/Mg Hydroxide (Mylanta Plus Xs) 15 ml PRN AFTMEALHC PRN PO DYSPEPSIA; Start 02/01/18 at 12:15 Magnesium Hydroxide (Milk Of Magnesia) 2,400 mg PRN QHS PRN PO CONSTIPATION Last administered on 02/13/18at 21:08; Start 02/01/18 at 12:15 Influenza Virus Vaccine (Afluria Trivalent [id number] Syringe) 0.5 ml ONCE ONCE VAX IM Last administered on 02/02/18at 10:11; Start 02/02/18 at 09:00; Stop 02/02/18 at 09:01; Status DC Aspirin (Davi Aspirin) 325 mg DAILY PO Last administered on 02/18/18at 08:47; Start 02/02/18 at 09:00 Clonidine HCl (Catapres) 0.1 mg QHS PO Last administered on 02/18/18 20:57; Start 02/01/18 at 21:00 Fludrocortisone Acetate (Florinef) 0.1 mg DAILY PO Last administered on 08:47; Start 02/02/18 at 09:00 Lorazepam (Ativan) 0.5 mg PRN Q4HRS PRN PO ANXIETY / AGITATION Last administered on 02/02/18 21:32; Start 02/01/18 at 13:30; Stop 02/06/18 at 18 :59; Status DC Metoprolol Tartrate (Lopressor) 25 mg BID PO Last administered on 02/18/18 20: 55; Start 02/01/18 at 21:00 Divalproex Sodium (Depakote Er) 1,500 mg QHS PO Last administered on at 20:16; Start 02/01/18 at 21:00; Stop 02/02/18 at 18:01; Status DC Divalproex Sodium (Depakote Er) 750 mg DAILY PO Last administered on 09:02; Start 02/02/18 at 09:00; Stop 02/02/18 at 18:01; Status DC Docusate Sodium (Colace) 100 mg DAILY PO Last administered on 02/18/18 08:47; Start 02/02/18 at 09:00 Levothyroxine Sodium (Synthroid) 25 mcg DAILY06 PO Last administered on 08:47; Start 02/02/18 at 06:00 Loxapine Succinate (Loxitane) 10 mg TID PO Last administered on 02/02/18 08: 58; Start 02/01/18 at 14:00; Stop 02/02/18 at 11:12; Status DC Nicotine (Nicoderm Cq 14mg) 1 patch DAILY TD ; Start 02/02/18 at 09:00; Stop 02/02/18 at 18:01; Status DC Thiamine HCl (Vitamin B-1) 100 mg DAILY PO Last administered on 02/18/18 08:48 ; Start 02/02/18 at 09:00 Trazodone HCl (Desyrel) 250 mg QHS PO Last administered on 02/18/18 20:56; Start 02/01/18 at 21:00 Loxapine Succinate (Loxitane) 10 mg BID PO Last administered on 02/03/18at 19: 24; Start 02/02/18 at 21:00; Stop 02/04/18 at 08:00; Status DC Sertraline HCl (Zoloft) 50 mg DAILY PO Last administered on 02/06/18at 07:26; Start 02/03/18 at 09:00; Stop 02/06/18 at 17:54; Status DC Divalproex Sodium (Depakote Sprinkles) 750 mg TID@0900,1300,2100 PO Last administered on 02/18/18at 20:56; Start 02/02/18 at 21:00 Sertraline HCl (Zoloft) 75 mg DAILY PO Last administered on 02/18/18at 08:50; Start 02/07/18 at 09:00 Olanzapine (ZyPREXA ZYDIS) 2.5 mg PRN Q2HR PRN PO PSYCHOSIS/AGITATION Last administered on 02/17/18at 20:08; Start 02/08/18 at 17:15 Quetiapine Fumarate (SEROquel) 12.5 mg DAILY@0900,1700 PO Last administered on 02/10/18at 17:06; Start 02/09/18 at 17:00; Stop 02/10/18 at 17:26; Status DC Quetiapine Fumarate (SEROquel) 12.5 mg TID@0900,1300,1700 PO Last administered on 02/11/18at 17:28; Start 02/11/18 at 09:00; Stop 02/11/18 at 19:01; Status DC Quetiapine Fumarate (SEROquel) 25 mg TID@0900,1300,1700 PO Last administered on 02/13/18at 13:18; Start 02/12/18 at 09:00; Stop 02/13/18 at 16:58; Status DC Quetiapine Fumarate (SEROquel) 37.5 mg TID@0900,1300,1700 PO Last administered on 02/18/18at 16:22; Start 02/13/18 at 17:00 Mirtazapine (Remeron) 7.5 mg QHS PO Last administered on 02/18/18at 20:56; Start 02/16/18 at 21:00 Active Scripts Active Reported Haldol (Haloperidol Lactate) 5 Mg/1 Ml Ampul 5 Mg IM PRN Q6HRS PRN Docusate Sodium 100 Mg Capsule 100 Mg PO DAILY Trazodone Hcl 100 Mg Tablet 250 Mg PO QHS Loxapine (Loxapine Succinate) 10 Mg Capsule 10 Mg PO TID Ativan (Lorazepam) 1 Mg Tablet 0.5 Mg PO PRN Q4HRS PRN Ativan (Lorazepam) 2 Mg/1 Ml Vial 0.25 Ml IM PRN Q4HRS PRN Levothyroxine Sodium 25 Mcg Tablet 25 Mcg PO DAILYAC Divalproex Sodium Er (Divalproex Sodium) 500 Mg Tab.er.24h 1,500 Mg PO QHS Divalproex Sodium Er (Divalproex Sodium) 500 Mg Tab.er.24h 750 Mg PO DAILY Thiamine Hcl 100 Mg Tablet 100 Mg PO DAILY Multivitamins (Multivitamin) 1 Each Tablet 1 Each PO NICODERM CQ 14mg (Nicotine) 1 Each Patch.td24 1 Patch TD DAILY Metoprolol Tartrate 25 Mg Tablet 25 Mg PO BID Fludrocortisone Acetate 0.1 Mg Tablet 0.1 Mg PO DAILY Clonidine Hcl 0.1 Mg Tablet 0.1 Mg PO QHS Aspirin 325 Mg Tablet 325 Mg PO DAILY I have reviewed the current psychotropics carefully including drug interactions. Risk benefit ratio favors no change other than as noted in my dictated progress note. 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
[2018-02-19 06:04] VITALS: BP 155/88
[2018-02-19] MEDS: LEVOTHYROXINE 25 MCG TABLET. PO SCH (06:21)
[2018-02-19] MEDS: FLUDROCORTISONE 0.1 MG TABLET PO SCH (10:31)
[2018-02-19] MEDS: DIVALPROEX 125 MG CAP.SPRINK PO SCH ×3 (10:31→19:33)
[2018-02-19] MEDS: DOCUSATE SODIUM 100 MG CAPSULE PO SCH (10:31)
[2018-02-19] MEDS: ASPIRIN 325 MG TABLET PO SCH (10:31)
[2018-02-19] MEDS: QUEtiapine 25 MG TABLET. PO SCH ×3 (10:32→17:00)
[2018-02-19] MEDS: THIAMINE 100 MG TABLET. PO SCH (10:32)
[2018-02-19] MEDS: SERTRALINE 50 MG TABLET. PO SCH (10:32)
[2018-02-19] MEDS: METOPROLOL TART IMMED RELEASE 25 MG TABLET PO SCH ×2 (10:56→19:34)
[2018-02-19 15:44] VITALS: BP 99/67
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
[2018-02-19] MEDS: traZODone 100 MG TABLET. PO SCH (19:34)
[2018-02-19] MEDS: MIRTAZAPINE 7.5 MG TABLET. PO SCH (19:35)
[2018-02-19] MEDS: cloNIDine HCL 0.1 MG TABLET PO SCH (19:35)
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
--- NOTE | 2018-02-19 23:01 | PDOC ---
Exam Note: [facility] Note: Please also refer to the separate dictated note~for this date of service dictated separately.~Patient seen individually. Discussed the patient with Nursing staff reviewed the chart.~Reviewed interim history and current functioning. Reviewed vital signs,~Labs/ Radiology~and current medications noted below. Continue current treatment with the changes noted in the dictated addendum note Assessment: Vital Signs: Vital Signs Date Time Temp Pulse Resp B/P (MAP) Pulse Ox O2 Delivery O2 Flow Rate FiO2 02/19/18 19:35 70 99/67 02/19/18 15:44 97.1 18 94 Room Air I&O Intake and Output 02/19/18 07:00 Intake Total 720 ml Balance 720 ml Intake Oral 720 ml Current Medications: Meds: Current Medications Acetaminophen (Tylenol) 650 mg PRN Q6HRS PRN PO PAIN / TEMP; Start 02/01/18 at 12:15 Multi-Ingredient Ointment (Analgesic [place]) 1 king PRN QID PRN TP MUSCLE PAIN; Start 02/01/18 at 12:15 Al Hydroxide/Mg Hydroxide (Mylanta Plus Xs) 15 ml PRN AFTMEALHC PRN PO DYSPEPSIA; Start 02/01/18 at 12:15 Magnesium Hydroxide (Milk Of Magnesia) 2,400 mg PRN QHS PRN PO CONSTIPATION Last administered on 02/13/18at 21:08; Start 02/01/18 at 12:15 Influenza Virus Vaccine (Afluria Trivalent [id number] Syringe) 0.5 ml ONCE ONCE VAX IM Last administered on 02/02/18at 10:11; Start 02/02/18 at 09:00; Stop 02/02/18 at 09:01; Status DC Aspirin (Davi Aspirin) 325 mg DAILY PO Last administered on 02/19/18at 10:31; Start 02/02/18 at 09:00 Clonidine HCl (Catapres) 0.1 mg QHS PO Last administered on 02/19/18at 19:35; Start 02/01/18 at 21:00 Fludrocortisone Acetate (Florinef) 0.1 mg DAILY PO Last administered on at 10:31; Start 02/02/18 at 09:00 Lorazepam (Ativan) 0.5 mg PRN Q4HRS PRN PO ANXIETY / AGITATION Last administered on 02/02/18at 21:32; Start 02/01/18 at 13:30; Stop 02/06/18 at 18 :59; Status DC Metoprolol Tartrate (Lopressor) 25 mg BID PO Last administered on 02/19/18at 19: 34; Start 02/01/18 at 21:00 Divalproex Sodium (Depakote Er) 1,500 mg QHS PO Last administered on at 20:16; Start 02/01/18 at 21:00; Stop 02/02/18 at 18:01; Status DC Divalproex Sodium (Depakote Er) 750 mg DAILY PO Last administered on at 09:02; Start 02/02/18 at 09:00; Stop 02/02/18 at 18:01; Status DC Docusate Sodium (Colace) 100 mg DAILY PO Last administered on 02/19/18at 10:31; Start 02/02/18 at 09:00 Levothyroxine Sodium (Synthroid) 25 mcg DAILY06 PO Last administered on at 06:21; Start 02/02/18 at 06:00 Loxapine Succinate (Loxitane) 10 mg TID PO Last administered on 02/02/18at 08: 58; Start 02/01/18 at 14:00; Stop 02/02/18 at 11:12; Status DC Nicotine (Nicoderm Cq 14mg) 1 patch DAILY TD ; Start 02/02/18 at 09:00; Stop 02/02/18 at 18:01; Status DC Thiamine HCl (Vitamin B-1) 100 mg DAILY PO Last administered on 02/19/18at 10:32 ; Start 02/02/18 at 09:00 Trazodone HCl (Desyrel) 250 mg QHS PO Last administered on 02/19/18at 19:34; Start 02/01/18 at 21:00 Loxapine Succinate (Loxitane) 10 mg BID PO Last administered on 02/03/18at 19: 24; Start 02/02/18 at 21:00; Stop 02/04/18 at 08:00; Status DC Sertraline HCl (Zoloft) 50 mg DAILY PO Last administered on 02/06/18at 07:26; Start 02/03/18 at 09:00; Stop 02/06/18 at 17:54; Status DC Divalproex Sodium (Depakote Sprinkles) 750 mg TID@0900,1300,2100 PO Last administered on 02/19/18at 19:33; Start 02/02/18 at 21:00 Sertraline HCl (Zoloft) 75 mg DAILY PO Last administered on 02/19/18at 10:32; Start 02/07/18 at 09:00 Olanzapine (ZyPREXA ZYDIS) 2.5 mg PRN Q2HR PRN PO PSYCHOSIS/AGITATION Last administered on 02/19/18at 22:31; Start 02/08/18 at 17:15 Quetiapine Fumarate (SEROquel) 12.5 mg DAILY@0900,1700 PO Last administered on 02/10/18at 17:06; Start 02/09/18 at 17:00; Stop 02/10/18 at 17:26; Status DC Quetiapine Fumarate (SEROquel) 12.5 mg TID@0900,1300,1700 PO Last administered on 02/11/18at 17:28; Start 02/11/18 at 09:00; Stop 02/11/18 at 19:01; Status DC Quetiapine Fumarate (SEROquel) 25 mg TID@0900,1300,1700 PO Last administered on 02/13/18at 13:18; Start 02/12/18 at 09:00; Stop 02/13/18 at 16:58; Status DC Quetiapine Fumarate (SEROquel) 37.5 mg TID@0900,1300,1700 PO Last administered on 02/19/18at 17:00; Start 02/13/18 at 17:00 Mirtazapine (Remeron) 7.5 mg QHS PO Last administered on 02/19/18at 19:35; Start 02/16/18 at 21:00 Active Scripts Active Reported Haldol (Haloperidol Lactate) 5 Mg/1 Ml Ampul 5 Mg IM PRN Q6HRS PRN Docusate Sodium 100 Mg Capsule 100 Mg PO DAILY Trazodone Hcl 100 Mg Tablet 250 Mg PO QHS Loxapine (Loxapine Succinate) 10 Mg Capsule 10 Mg PO TID Ativan (Lorazepam) 1 Mg Tablet 0.5 Mg PO PRN Q4HRS PRN Ativan (Lorazepam) 2 Mg/1 Ml Vial 0.25 Ml IM PRN Q4HRS PRN Levothyroxine Sodium 25 Mcg Tablet 25 Mcg PO DAILYAC Divalproex Sodium Er (Divalproex Sodium) 500 Mg Tab.er.24h 1,500 Mg PO QHS Divalproex Sodium Er (Divalproex Sodium) 500 Mg Tab.er.24h 750 Mg PO DAILY Thiamine Hcl 100 Mg Tablet 100 Mg PO DAILY Multivitamins (Multivitamin) 1 Each Tablet 1 Each PO NICODERM CQ 14mg (Nicotine) 1 Each Patch.td24 1 Patch TD DAILY Metoprolol Tartrate 25 Mg Tablet 25 Mg PO BID Fludrocortisone Acetate 0.1 Mg Tablet 0.1 Mg PO DAILY Clonidine Hcl 0.1 Mg Tablet 0.1 Mg PO QHS Aspirin 325 Mg Tablet 325 Mg PO DAILY I have reviewed the current psychotropics carefully including drug interactions. Risk benefit ratio favors no change other than as noted in my dictated progress note. 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
[2018-02-20] MEDS ORDERED: MIRT15TA PO (01:19)
[2018-02-20] MEDS ORDERED: SERT50TA PO (01:20)
[2018-02-20] MEDS ORDERED: QUET25TA5 PO (01:22)
[2018-02-20] MEDS ORDERED: OLAN5TAB5 PO (01:24)
[2018-02-20] MEDS ORDERED: MAGN2400 PO (01:27)
[2018-02-20] MEDS ORDERED: MAG30ORA PO (01:29)
[2018-02-20] MEDS ORDERED: METH57CR8 TP (01:32)
[2018-02-20] MEDS ORDERED: ACET325T9 PO (01:35)
[2018-02-20] MEDS ORDERED: DIVA125C2 PO (01:37)
[2018-02-20] MEDS: LEVOTHYROXINE 25 MCG TABLET. PO SCH (05:30)
[2018-02-20 06:06] VITALS: BP 161/87
[2018-02-20] MEDS: DOCUSATE SODIUM 100 MG CAPSULE PO SCH (10:03)
[2018-02-20] MEDS: ASPIRIN 325 MG TABLET PO SCH (10:03)
[2018-02-20] MEDS: FLUDROCORTISONE 0.1 MG TABLET PO SCH (10:04)
[2018-02-20] MEDS: METOPROLOL TART IMMED RELEASE 25 MG TABLET PO SCH ×2 (10:04→20:30)
[2018-02-20] MEDS: DIVALPROEX 125 MG CAP.SPRINK PO SCH ×3 (10:04→20:31)
[2018-02-20] MEDS: QUEtiapine 25 MG TABLET. PO SCH ×2 (10:05→12:42)
[2018-02-20] MEDS: SERTRALINE 50 MG TABLET. PO SCH (10:05)
[2018-02-20] MEDS: THIAMINE 100 MG TABLET. PO SCH (10:05)
[2018-02-20 15:04] VITALS: BP 119/71
[2018-02-20] MEDS: QUEtiapine 50 MG TABLET. PO SCH (17:09)
[2018-02-20] MEDS: MIRTAZAPINE 7.5 MG TABLET. PO SCH (20:30)
[2018-02-20] MEDS: cloNIDine HCL 0.1 MG TABLET PO SCH (20:31)
[2018-02-20] MEDS: traZODone 100 MG TABLET. PO SCH (20:31)
--- NOTE | 2018-02-20 23:03 | PDOC ---
Exam Note: [facility] Note: Please also refer to the separate dictated note~for this date of service dictated separately.~Patient seen individually. Discussed the patient with Nursing staff reviewed the chart.~Reviewed interim history and current functioning. Reviewed vital signs,~Labs/ Radiology~and current medications noted below. Continue current treatment with the changes noted in the dictated addendum note Assessment: Vital Signs: Vital Signs Date Time Temp Pulse Resp B/P (MAP) Pulse Ox O2 Delivery O2 Flow Rate FiO2 02/20/18 20:31 60 119/71 02/20/18 15:04 97.7 20 93 Room Air I&O Intake and Output 02/20/18 07:00 Intake Total 540 ml Balance 540 ml Intake Oral 540 ml # Voids 2 Current Medications: Meds: Current Medications Acetaminophen (Tylenol) 650 mg PRN Q6HRS PRN PO PAIN / TEMP; Start 02/01/18 at 12:15 Multi-Ingredient Ointment (Analgesic [place]) 1 king PRN QID PRN TP MUSCLE PAIN; Start 02/01/18 at 12:15 Al Hydroxide/Mg Hydroxide (Mylanta Plus Xs) 15 ml PRN AFTMEALHC PRN PO DYSPEPSIA; Start 02/01/18 at 12:15 Magnesium Hydroxide (Milk Of Magnesia) 2,400 mg PRN QHS PRN PO CONSTIPATION Last administered on 02/13/18at 21:08; Start 02/01/18 at 12:15 Influenza Virus Vaccine (Afluria Trivalent [id number] Syringe) 0.5 ml ONCE ONCE VAX IM Last administered on 02/02/18at 10:11; Start 02/02/18 at 09:00; Stop 02/02/18 at 09:01; Status DC Aspirin (Davi Aspirin) 325 mg DAILY PO Last administered on 02/20/18at 10:03; Start 02/02/18 at 09:00 Clonidine HCl (Catapres) 0.1 mg QHS PO Last administered on 02/20/18at 20:31; Start 02/01/18 at 21:00 Fludrocortisone Acetate (Florinef) 0.1 mg DAILY PO Last administered on at 10:04; Start 02/02/18 at 09:00 Lorazepam (Ativan) 0.5 mg PRN Q4HRS PRN PO ANXIETY / AGITATION Last administered on 02/02/18at 21:32; Start 02/01/18 at 13:30; Stop 02/06/18 at 18 :59; Status DC Metoprolol Tartrate (Lopressor) 25 mg BID PO Last administered on 02/20/18at 20: 30; Start 02/01/18 at 21:00 Divalproex Sodium (Depakote Er) 1,500 mg QHS PO Last administered on at 20:16; Start 02/01/18 at 21:00; Stop 02/02/18 at 18:01; Status DC Divalproex Sodium (Depakote Er) 750 mg DAILY PO Last administered on at 09:02; Start 02/02/18 at 09:00; Stop 02/02/18 at 18:01; Status DC Docusate Sodium (Colace) 100 mg DAILY PO Last administered on 02/20/18at 10:03; Start 02/02/18 at 09:00 Levothyroxine Sodium (Synthroid) 25 mcg DAILY06 PO Last administered on at 05:30; Start 02/02/18 at 06:00 Loxapine Succinate (Loxitane) 10 mg TID PO Last administered on 02/02/18at 08: 58; Start 02/01/18 at 14:00; Stop 02/02/18 at 11:12; Status DC Nicotine (Nicoderm Cq 14mg) 1 patch DAILY TD ; Start 02/02/18 at 09:00; Stop 02/02/18 at 18:01; Status DC Thiamine HCl (Vitamin B-1) 100 mg DAILY PO Last administered on 02/20/18at 10:05 ; Start 02/02/18 at 09:00 Trazodone HCl (Desyrel) 250 mg QHS PO Last administered on 02/20/18at 20:31; Start 02/01/18 at 21:00 Loxapine Succinate (Loxitane) 10 mg BID PO Last administered on 02/03/18at 19: 24; Start 02/02/18 at 21:00; Stop 02/04/18 at 08:00; Status DC Sertraline HCl (Zoloft) 50 mg DAILY PO Last administered on 02/06/18at 07:26; Start 02/03/18 at 09:00; Stop 02/06/18 at 17:54; Status DC Divalproex Sodium (Depakote Sprinkles) 750 mg TID@0900,1300,2100 PO Last administered on 02/20/18at 20:31; Start 02/02/18 at 21:00 Sertraline HCl (Zoloft) 75 mg DAILY PO Last administered on 02/20/18at 10:05; Start 02/07/18 at 09:00 Olanzapine (ZyPREXA ZYDIS) 2.5 mg PRN Q2HR PRN PO PSYCHOSIS/AGITATION Last administered on 02/20/18at 22:42; Start 02/08/18 at 17:15 Quetiapine Fumarate (SEROquel) 12.5 mg DAILY@0900,1700 PO Last administered on 02/10/18at 17:06; Start 02/09/18 at 17:00; Stop 02/10/18 at 17:26; Status DC Quetiapine Fumarate (SEROquel) 12.5 mg TID@0900,1300,1700 PO Last administered on 02/11/18at 17:28; Start 02/11/18 at 09:00; Stop 02/11/18 at 19:01; Status DC Quetiapine Fumarate (SEROquel) 25 mg TID@0900,1300,1700 PO Last administered on 02/13/18at 13:18; Start 02/12/18 at 09:00; Stop 02/13/18 at 16:58; Status DC Quetiapine Fumarate (SEROquel) 37.5 mg TID@0900,1300,1700 PO Last administered on 02/20/18at 12:42; Start 02/13/18 at 17:00; Stop 02/20/18 at 16:36; Status DC Mirtazapine (Remeron) 7.5 mg QHS PO Last administered on 02/20/18at 20:30; Start 02/16/18 at 21:00 Quetiapine Fumarate (SEROquel) 50 mg TID@0900,1300,1700 PO Last administered on 02/20/18at 17:09; Start 02/20/18 at 17:00 Active Scripts Active Reported Depakote Sprinkle (Divalproex Sodium) 125 Mg Cap.sprink 750 Mg PO [id number] Tylenol (Acetaminophen) 325 Mg Tablet 650 Mg PO PRN Q6HRS PRN [place] Ultra Strength Crm (Methyl Salicylate/Menth/Camph) 57 Gm Cream..g. 57 Gm TP PRN QID PRN Mag-Al Plus Suspension (Mag Hydrox/Al Hydrox/Simeth) 30 Ml Oral.susp 15 Ml PO PRN QID PRN Milk Of Magnesia (Magnesium Hydroxide) 2,400 Mg/10 Ml Oral.susp 2,400 Mg PO PRN QHS PRN Zyprexa Zydis (Olanzapine) 5 Mg Tab.rapdis 2.5 Mg PO PRN Q2HR PRN Seroquel (Quetiapine Fumarate) 25 Mg Tablet 37.5 Mg PO TIDAFTMEAL Zoloft (Sertraline Hcl) 50 Mg Tablet 75 Mg PO DAILY Remeron (Mirtazapine) 15 Mg Tablet 7.5 Mg PO HS Haldol (Haloperidol Lactate) 5 Mg/1 Ml Ampul 5 Mg IM PRN Q6HRS PRN Docusate Sodium 100 Mg Capsule 100 Mg PO DAILY Trazodone Hcl 100 Mg Tablet 250 Mg PO QHS Loxapine (Loxapine Succinate) 10 Mg Capsule 10 Mg PO TID Ativan (Lorazepam) 1 Mg Tablet 0.5 Mg PO PRN Q4HRS PRN Ativan (Lorazepam) 2 Mg/1 Ml Vial 0.25 Ml IM PRN Q4HRS PRN Levothyroxine Sodium 25 Mcg Tablet 25 Mcg PO DAILYAC Divalproex Sodium Er (Divalproex Sodium) 500 Mg Tab.er.24h 1,500 Mg PO QHS Divalproex Sodium Er (Divalproex Sodium) 500 Mg Tab.er.24h 750 Mg PO DAILY Thiamine Hcl 100 Mg Tablet 100 Mg PO DAILY Multivitamins (Multivitamin) 1 Each Tablet 1 Each PO NICODERM CQ 14mg (Nicotine) 1 Each Patch.td24 1 Patch TD DAILY Metoprolol Tartrate 25 Mg Tablet 25 Mg PO BID Fludrocortisone Acetate 0.1 Mg Tablet 0.1 Mg PO DAILY Clonidine Hcl 0.1 Mg Tablet 0.1 Mg PO QHS Aspirin 325 Mg Tablet 325 Mg PO DAILY I have reviewed the current psychotropics carefully including drug interactions. Risk benefit ratio favors no change other than as noted in my dictated progress note. 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
--- NOTE | 2018-02-20 23:39 | PN ---
DATE: 02/19/2018 This is a late entry 02/19/2018, covers the elements not covered in my initial note. SUBJECTIVE: I met with the patient in the evening. The patient slept 9 hours the previous evening. He remains confused, wandering, compliant with medications at times, difficult to redirect and becomes somewhat aggressive. REVIEW OF SYSTEMS: No CV, , pulmonary, eye, ENT system symptoms on review. Reliability poor. MENTAL STATUS EXAM: Oriented to himself. Insight, judgment, recent and remote memory, attention, concentration, fund of knowledge poor, consistent with his diagnosis as mentioned in my initial note. PLAN: No change from initial note. Maintain Depakote, trazodone, Zoloft, Seroquel along with Zyprexa as needed, Remeron 15 mg at bedtime, may need to increase the Seroquel if aggression persists. MAN Margy MOORE MD DR: OZZY/leah JOB#: [id number] / [id number]
[2018-02-21] MEDS: LEVOTHYROXINE 25 MCG TABLET. PO SCH (06:02)
[2018-02-21 06:04] VITALS: BP 146/87
[2018-02-21] MEDS: DOCUSATE SODIUM 100 MG CAPSULE PO SCH ×2 (08:05→09:00)
[2018-02-21] MEDS: DIVALPROEX 125 MG CAP.SPRINK PO SCH ×4 (08:05→19:23)
[2018-02-21] MEDS: ASPIRIN 325 MG TABLET PO SCH ×2 (08:05→09:00)
[2018-02-21] MEDS: FLUDROCORTISONE 0.1 MG TABLET PO SCH ×2 (08:06→09:00)
[2018-02-21] MEDS: METOPROLOL TART IMMED RELEASE 25 MG TABLET PO SCH ×2 (08:07→19:23)
[2018-02-21] MEDS: THIAMINE 100 MG TABLET. PO SCH ×2 (08:08→09:00)
[2018-02-21] MEDS: QUEtiapine 50 MG TABLET. PO SCH ×4 (08:08→17:33)
[2018-02-21] MEDS: SERTRALINE 50 MG TABLET. PO SCH ×2 (08:09→09:00)
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
[2018-02-21] MEDS: MIRTAZAPINE 7.5 MG TABLET. PO SCH (19:23)
[2018-02-21] MEDS: traZODone 100 MG TABLET. PO SCH (19:24)
[2018-02-21] MEDS: cloNIDine HCL 0.1 MG TABLET PO SCH (19:24)
[2018-02-21] MEDS: MELATONIN 3 MG TABLET PO SCH (19:28)
[2018-02-22] MEDS: LEVOTHYROXINE 25 MCG TABLET. PO SCH (05:28)
[2018-02-22 05:46] VITALS: BP 138/85
[2018-02-22] MEDS: ASPIRIN 325 MG TABLET PO SCH (08:16)
[2018-02-22] MEDS: DIVALPROEX 125 MG CAP.SPRINK PO SCH ×3 (08:17→21:21)
[2018-02-22] MEDS: DOCUSATE SODIUM 100 MG CAPSULE PO SCH (08:17)
[2018-02-22] MEDS: METOPROLOL TART IMMED RELEASE 25 MG TABLET PO SCH ×2 (08:19→21:23)
[2018-02-22] MEDS: FLUDROCORTISONE 0.1 MG TABLET PO SCH (08:19)
[2018-02-22] MEDS: QUEtiapine 50 MG TABLET. PO SCH ×3 (08:20→17:00)
[2018-02-22] MEDS: THIAMINE 100 MG TABLET. PO SCH (08:21)
[2018-02-22] MEDS: SERTRALINE 50 MG TABLET. PO SCH (08:22)
[2018-02-22 16:33] VITALS: BP 110/72
--- NOTE | 2018-02-22 19:24 | PN ---
DATE: 02/21/2018 PSYCHIATRIC PROGRESS NOTE This late entry 02/21/2018 covers elements not covered in my initial note. SUBJECTIVE: I met with the patient in the evening. The patient slept just 2 hours previous night. He remains confused, somewhat agitated at times, but has not been physically striking out at staff on 02/21/2018. He is compliant with his medications. He continues to have a chewing movement of his mouth. This is ongoing for him and probably due to his dentures. REVIEW OF SYSTEMS: No CV, , pulmonary, eye, ENT system symptoms on review. Reliability poor. MENTAL STATUS EXAM: Oriented to himself. Insight, judgment, recent and remote memory, attention, concentration, fund of knowledge poor, consistent with his diagnosis. IMPRESSION: Major neurocognitive disorder, Alzheimer, vascular with delusion, depression, behavioral disturbance. Rest unchanged. PLAN: Start melatonin 3 mg at bedtime for his insomnia. Continue rest unchanged for now. AALIYAH MOORE MD DR: OZZY/leah JOB#: [id number] / [id number]
[2018-02-22] MEDS: traZODone 100 MG TABLET. PO SCH (21:22)
[2018-02-22] MEDS: cloNIDine HCL 0.1 MG TABLET PO SCH (21:22)
[2018-02-22] MEDS: MELATONIN 3 MG TABLET PO SCH (21:23)
[2018-02-22] MEDS: MIRTAZAPINE 7.5 MG TABLET. PO SCH (21:23)
--- NOTE | 2018-02-22 22:38 | PDOC ---
Exam Note: [facility] Note: Late entry for DOS 02/21/2018. Please also refer to the separate dictated note~ for this date of service dictated separately.~Patient seen individually. Discussed the patient with Nursing staff reviewed the chart.~Reviewed interim history and current functioning. Reviewed vital signs,~Labs/ Radiology~and current medications noted below. Continue current treatment with the changes noted in the dictated addendum note Assessment: Vital Signs: VS - Last 72 Hours, by Label Date Time Temp Pulse Resp B/P (MAP) Pulse Ox O2 Delivery O2 Flow Rate FiO2 02/22/18 21:23 76 110/72 02/22/18 21:22 76 110/72 02/22/18 16:33 98.2 76 19 110/72 (85) 92 02/22/18 08:19 77 138/85 02/22/18 05:46 96.7 77 20 138/85 (102) 96 02/21/18 19:24 66 146/87 02/21/18 19:23 66 146/87 02/21/18 17:56 66 16 96 Room Air 02/21/18 16:09 97.3 18 02/21/18 08:07 57 146/87 02/21/18 06:04 97.8 57 16 146/87 (106) 94 Room Air 02/20/18 20:31 60 119/71 02/20/18 20:30 60 119/71 02/20/18 15:04 97.7 60 20 119/71 (87) 93 Room Air 02/20/18 10:04 70 161/87 02/20/18 06:06 97.3 70 20 161/87 (111) 91 Vital Signs Date Time Temp Pulse Resp B/P (MAP) Pulse Ox O2 Delivery O2 Flow Rate FiO2 02/22/18 21:23 76 110/72 02/22/18 16:33 98.2 19 92 02/21/18 17:56 Room Air I&O Intake and Output 02/22/18 07:00 Intake Total 360 ml Balance 360 ml Intake Oral 360 ml Current Medications: Meds: Current Medications Acetaminophen (Tylenol) 650 mg PRN Q6HRS PRN PO PAIN / TEMP; Start 02/01/18 at 12:15 Multi-Ingredient Ointment (Analgesic [place]) 1 king PRN QID PRN TP MUSCLE PAIN; Start 02/01/18 at 12:15 Al Hydroxide/Mg Hydroxide (Mylanta Plus Xs) 15 ml PRN AFTMEALHC PRN PO DYSPEPSIA; Start 02/01/18 at 12:15 Magnesium Hydroxide (Milk Of Magnesia) 2,400 mg PRN QHS PRN PO CONSTIPATION Last administered on 02/13/18 21:08; Start 02/01/18 at 12:15 Influenza Virus Vaccine (Afluria Trivalent [id number] Syringe) 0.5 ml ONCE ONCE VAX IM Last administered on 02/02/18at 10:11; Start 02/02/18 at 09:00; Stop 02/02/18 at 09:01; Status DC Aspirin (Davi Aspirin) 325 mg DAILY PO Last administered on 02/22/18 08:16; Start 02/02/18 at 09:00 Clonidine HCl (Catapres) 0.1 mg QHS PO Last administered on 02/22/18 21:22; Start 02/01/18 at 21:00 Fludrocortisone Acetate (Florinef) 0.1 mg DAILY PO Last administered on 08:19; Start 02/02/18 at 09:00 Lorazepam (Ativan) 0.5 mg PRN Q4HRS PRN PO ANXIETY / AGITATION Last administered on 02/02/18 21:32; Start 02/01/18 at 13:30; Stop 02/06/18 at 18 :59; Status DC Metoprolol Tartrate (Lopressor) 25 mg BID PO Last administered on 02/22/18at 21: 23; Start 02/01/18 at 21:00 Divalproex Sodium (Depakote Er) 1,500 mg QHS PO Last administered on at 20:16; Start 02/01/18 at 21:00; Stop 02/02/18 at 18:01; Status DC Divalproex Sodium (Depakote Er) 750 mg DAILY PO Last administered on 09:02; Start 02/02/18 at 09:00; Stop 02/02/18 at 18:01; Status DC Docusate Sodium (Colace) 100 mg DAILY PO Last administered on 02/22/18 08:17; Start 02/02/18 at 09:00 Levothyroxine Sodium (Synthroid) 25 mcg DAILY06 PO Last administered on at 05:28; Start 02/02/18 at 06:00 Loxapine Succinate (Loxitane) 10 mg TID PO Last administered on 02/02/18at 08: 58; Start 02/01/18 at 14:00; Stop 02/02/18 at 11:12; Status DC Nicotine (Nicoderm Cq 14mg) 1 patch DAILY TD ; Start 02/02/18 at 09:00; Stop 02/02/18 at 18:01; Status DC Thiamine HCl (Vitamin B-1) 100 mg DAILY PO Last administered on 02/22/18at 08:21 ; Start 02/02/18 at 09:00 Trazodone HCl (Desyrel) 250 mg QHS PO Last administered on 02/22/18at 21:22; Start 02/01/18 at 21:00 Loxapine Succinate (Loxitane) 10 mg BID PO Last administered on 02/03/18at 19: 24; Start 02/02/18 at 21:00; Stop 02/04/18 at 08:00; Status DC Sertraline HCl (Zoloft) 50 mg DAILY PO Last administered on 02/06/18at 07:26; Start 02/03/18 at 09:00; Stop 02/06/18 at 17:54; Status DC Divalproex Sodium (Depakote Sprinkles) 750 mg TID@0900,1300,2100 PO Last administered on 02/22/18at 21:21; Start 02/02/18 at 21:00 Sertraline HCl (Zoloft) 75 mg DAILY PO Last administered on 02/22/18at 08:22; Start 02/07/18 at 09:00 Olanzapine (ZyPREXA ZYDIS) 2.5 mg PRN Q2HR PRN PO PSYCHOSIS/AGITATION Last administered on 02/22/18at 15:46; Start 02/08/18 at 17:15 Quetiapine Fumarate (SEROquel) 12.5 mg DAILY@0900,1700 PO Last administered on 02/10/18at 17:06; Start 02/09/18 at 17:00; Stop 02/10/18 at 17:26; Status DC Quetiapine Fumarate (SEROquel) 12.5 mg TID@0900,1300,1700 PO Last administered on 02/11/18at 17:28; Start 02/11/18 at 09:00; Stop 02/11/18 at 19:01; Status DC Quetiapine Fumarate (SEROquel) 25 mg TID@0900,1300,1700 PO Last administered on 02/13/18at 13:18; Start 02/12/18 at 09:00; Stop 02/13/18 at 16:58; Status DC Quetiapine Fumarate (SEROquel) 37.5 mg TID@0900,1300,1700 PO Last administered on 02/20/18at 12:42; Start 02/13/18 at 17:00; Stop 02/20/18 at 16:36; Status DC Mirtazapine (Remeron) 7.5 mg QHS PO Last administered on 02/22/18at 21:23; Start 02/16/18 at 21:00 Quetiapine Fumarate (SEROquel) 50 mg TID@0900,1300,1700 PO Last administered on 02/22/18at 12:31; Start 02/20/18 at 17:00 Melatonin 3 mg HS PO Last administered on 02/22/18at 21:23; Start 02/21/18 at 21 :00 Active Scripts Active Reported Depakote Sprinkle (Divalproex Sodium) 125 Mg Cap.sprink 750 Mg PO [id number] Tylenol (Acetaminophen) 325 Mg Tablet 650 Mg PO PRN Q6HRS PRN Bengay Ultra Strength Crm (Methyl Salicylate/Menth/Camph) 57 Gm Cream..g. 57 Gm TP PRN QID PRN Mag-Al Plus Suspension (Mag Hydrox/Al Hydrox/Simeth) 30 Ml Oral.susp 15 Ml PO PRN QID PRN Milk Of Magnesia (Magnesium Hydroxide) 2,400 Mg/10 Ml Oral.susp 2,400 Mg PO PRN QHS PRN Zyprexa Zydis (Olanzapine) 5 Mg Tab.rapdis 2.5 Mg PO PRN Q2HR PRN Seroquel (Quetiapine Fumarate) 25 Mg Tablet 37.5 Mg PO TIDAFTMEAL Zoloft (Sertraline Hcl) 50 Mg Tablet 75 Mg PO DAILY Remeron (Mirtazapine) 15 Mg Tablet 7.5 Mg PO HS Haldol (Haloperidol Lactate) 5 Mg/1 Ml Ampul 5 Mg IM PRN Q6HRS PRN Docusate Sodium 100 Mg Capsule 100 Mg PO DAILY Trazodone Hcl 100 Mg Tablet 250 Mg PO QHS Loxapine (Loxapine Succinate) 10 Mg Capsule 10 Mg PO TID Ativan (Lorazepam) 1 Mg Tablet 0.5 Mg PO PRN Q4HRS PRN Ativan (Lorazepam) 2 Mg/1 Ml Vial 0.25 Ml IM PRN Q4HRS PRN Levothyroxine Sodium 25 Mcg Tablet 25 Mcg PO DAILYAC Divalproex Sodium Er (Divalproex Sodium) 500 Mg Tab.er.24h 1,500 Mg PO QHS Divalproex Sodium Er (Divalproex Sodium) 500 Mg Tab.er.24h 750 Mg PO DAILY Thiamine Hcl 100 Mg Tablet 100 Mg PO DAILY Multivitamins (Multivitamin) 1 Each Tablet 1 Each PO NICODERM CQ 14mg (Nicotine) 1 Each Patch.td24 1 Patch TD DAILY Metoprolol Tartrate 25 Mg Tablet 25 Mg PO BID Fludrocortisone Acetate 0.1 Mg Tablet 0.1 Mg PO DAILY Clonidine Hcl 0.1 Mg Tablet 0.1 Mg PO QHS Aspirin 325 Mg Tablet 325 Mg PO DAILY I have reviewed the current psychotropics carefully including drug interactions. Risk benefit ratio favors no change other than as noted in my dictated progress note. 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
--- NOTE | 2018-02-22 23:11 | PDOC ---
Exam Note: Dionic[employer] Note: Please also refer to the separate dictated note~for this date of service dictated separately.~Patient seen individually. Discussed the patient with Nursing staff reviewed the chart.~Reviewed interim history and current functioning. Reviewed vital signs,~Labs/ Radiology~and current medications noted below. Continue current treatment with the changes noted in the dictated addendum note Assessment: Vital Signs: Vital Signs Date Time Temp Pulse Resp B/P (MAP) Pulse Ox O2 Delivery O2 Flow Rate FiO2 02/22/18 21:23 76 110/72 02/22/18 16:33 98.2 19 92 02/21/18 17:56 Room Air I&O Intake and Output 02/22/18 07:00 Intake Total 360 ml Balance 360 ml Intake Oral 360 ml Current Medications: Meds: Current Medications Acetaminophen (Tylenol) 650 mg PRN Q6HRS PRN PO PAIN / TEMP; Start 02/01/18 at 12:15 Multi-Ingredient Ointment (Analgesic [place]) 1 king PRN QID PRN TP MUSCLE PAIN; Start 02/01/18 at 12:15 Al Hydroxide/Mg Hydroxide (Mylanta Plus Xs) 15 ml PRN AFTMEALHC PRN PO DYSPEPSIA; Start 02/01/18 at 12:15 Magnesium Hydroxide (Milk Of Magnesia) 2,400 mg PRN QHS PRN PO CONSTIPATION Last administered on 02/13/18at 21:08; Start 02/01/18 at 12:15 Influenza Virus Vaccine (Afluria Trivalent [id number] Syringe) 0.5 ml ONCE ONCE VAX IM Last administered on 02/02/18at 10:11; Start 02/02/18 at 09:00; Stop 02/02/18 at 09:01; Status DC Aspirin (Davi Aspirin) 325 mg DAILY PO Last administered on 02/22/18at 08:16; Start 02/02/18 at 09:00 Clonidine HCl (Catapres) 0.1 mg QHS PO Last administered on 02/22/18at 21:22; Start 02/01/18 at 21:00 Fludrocortisone Acetate (Florinef) 0.1 mg DAILY PO Last administered on at 08:19; Start 02/02/18 at 09:00 Lorazepam (Ativan) 0.5 mg PRN Q4HRS PRN PO ANXIETY / AGITATION Last administered on 02/02/18at 21:32; Start 02/01/18 at 13:30; Stop 02/06/18 at 18 :59; Status DC Metoprolol Tartrate (Lopressor) 25 mg BID PO Last administered on 02/22/18at 21: 23; Start 02/01/18 at 21:00 Divalproex Sodium (Depakote Er) 1,500 mg QHS PO Last administered on at 20:16; Start 02/01/18 at 21:00; Stop 02/02/18 at 18:01; Status DC Divalproex Sodium (Depakote Er) 750 mg DAILY PO Last administered on at 09:02; Start 02/02/18 at 09:00; Stop 02/02/18 at 18:01; Status DC Docusate Sodium (Colace) 100 mg DAILY PO Last administered on 02/22/18at 08:17; Start 02/02/18 at 09:00 Levothyroxine Sodium (Synthroid) 25 mcg DAILY06 PO Last administered on at 05:28; Start 02/02/18 at 06:00 Loxapine Succinate (Loxitane) 10 mg TID PO Last administered on 02/02/18at 08: 58; Start 02/01/18 at 14:00; Stop 02/02/18 at 11:12; Status DC Nicotine (Nicoderm Cq 14mg) 1 patch DAILY TD ; Start 02/02/18 at 09:00; Stop 02/02/18 at 18:01; Status DC Thiamine HCl (Vitamin B-1) 100 mg DAILY PO Last administered on 02/22/18at 08:21 ; Start 02/02/18 at 09:00 Trazodone HCl (Desyrel) 250 mg QHS PO Last administered on 02/22/18at 21:22; Start 02/01/18 at 21:00 Loxapine Succinate (Loxitane) 10 mg BID PO Last administered on 02/03/18at 19: 24; Start 02/02/18 at 21:00; Stop 02/04/18 at 08:00; Status DC Sertraline HCl (Zoloft) 50 mg DAILY PO Last administered on 02/06/18at 07:26; Start 02/03/18 at 09:00; Stop 02/06/18 at 17:54; Status DC Divalproex Sodium (Depakote Sprinkles) 750 mg TID@0900,1300,2100 PO Last administered on 02/22/18at 21:21; Start 02/02/18 at 21:00 Sertraline HCl (Zoloft) 75 mg DAILY PO Last administered on 02/22/18 08:22; Start 02/07/18 at 09:00 Olanzapine (ZyPREXA ZYDIS) 2.5 mg PRN Q2HR PRN PO PSYCHOSIS/AGITATION Last administered on 02/22/18at 15:46; Start 02/08/18 at 17:15 Quetiapine Fumarate (SEROquel) 12.5 mg DAILY@0900,1700 PO Last administered on 02/10/18at 17:06; Start 02/09/18 at 17:00; Stop 02/10/18 at 17:26; Status DC Quetiapine Fumarate (SEROquel) 12.5 mg TID@0900,1300,1700 PO Last administered on 02/11/18at 17:28; Start 02/11/18 at 09:00; Stop 02/11/18 at 19:01; Status DC Quetiapine Fumarate (SEROquel) 25 mg TID@0900,1300,1700 PO Last administered on 02/13/18at 13:18; Start 02/12/18 at 09:00; Stop 02/13/18 at 16:58; Status DC Quetiapine Fumarate (SEROquel) 37.5 mg TID@0900,1300,1700 PO Last administered on 02/20/18at 12:42; Start 02/13/18 at 17:00; Stop 02/20/18 at 16:36; Status DC Mirtazapine (Remeron) 7.5 mg QHS PO Last administered on 02/22/18at 21:23; Start 02/16/18 at 21:00 Quetiapine Fumarate (SEROquel) 50 mg TID@0900,1300,1700 PO Last administered on 02/22/18at 12:31; Start 02/20/18 at 17:00 Melatonin 3 mg HS PO Last administered on 02/22/18at 21:23; Start 02/21/18 at 21 :00 Active Scripts Active Reported Depakote Sprinkle (Divalproex Sodium) 125 Mg Cap.sprink 750 Mg PO [id number] Tylenol (Acetaminophen) 325 Mg Tablet 650 Mg PO PRN Q6HRS PRN Bengay Ultra Strength Crm (Methyl Salicylate/Menth/Camph) 57 Gm Cream..g. 57 Gm TP PRN QID PRN Mag-Al Plus Suspension (Mag Hydrox/Al Hydrox/Simeth) 30 Ml Oral.susp 15 Ml PO PRN QID PRN Milk Of Magnesia (Magnesium Hydroxide) 2,400 Mg/10 Ml Oral.susp 2,400 Mg PO PRN QHS PRN Zyprexa Zydis (Olanzapine) 5 Mg Tab.rapdis 2.5 Mg PO PRN Q2HR PRN Seroquel (Quetiapine Fumarate) 25 Mg Tablet 37.5 Mg PO TIDAFTMEAL Zoloft (Sertraline Hcl) 50 Mg Tablet 75 Mg PO DAILY Remeron (Mirtazapine) 15 Mg Tablet 7.5 Mg PO HS Haldol (Haloperidol Lactate) 5 Mg/1 Ml Ampul 5 Mg IM PRN Q6HRS PRN Docusate Sodium 100 Mg Capsule 100 Mg PO DAILY Trazodone Hcl 100 Mg Tablet 250 Mg PO QHS Loxapine (Loxapine Succinate) 10 Mg Capsule 10 Mg PO TID Ativan (Lorazepam) 1 Mg Tablet 0.5 Mg PO PRN Q4HRS PRN Ativan (Lorazepam) 2 Mg/1 Ml Vial 0.25 Ml IM PRN Q4HRS PRN Levothyroxine Sodium 25 Mcg Tablet 25 Mcg PO DAILYAC Divalproex Sodium Er (Divalproex Sodium) 500 Mg Tab.er.24h 1,500 Mg PO QHS Divalproex Sodium Er (Divalproex Sodium) 500 Mg Tab.er.24h 750 Mg PO DAILY Thiamine Hcl 100 Mg Tablet 100 Mg PO DAILY Multivitamins (Multivitamin) 1 Each Tablet 1 Each PO NICODERM CQ 14mg (Nicotine) 1 Each Patch.td24 1 Patch TD DAILY Metoprolol Tartrate 25 Mg Tablet 25 Mg PO BID Fludrocortisone Acetate 0.1 Mg Tablet 0.1 Mg PO DAILY Clonidine Hcl 0.1 Mg Tablet 0.1 Mg PO QHS Aspirin 325 Mg Tablet 325 Mg PO DAILY I have reviewed the current psychotropics carefully including drug interactions. Risk benefit ratio favors no change other than as noted in my dictated progress note. 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
[2018-02-23] MEDS: LEVOTHYROXINE 25 MCG TABLET. PO SCH (05:32)
[2018-02-23 05:52] VITALS: BP 106/48
[2018-02-23] MEDS: DIVALPROEX 125 MG CAP.SPRINK PO SCH ×3 (07:50→20:20)
[2018-02-23] MEDS: ASPIRIN 325 MG TABLET PO SCH (07:50)
[2018-02-23] MEDS: DOCUSATE SODIUM 100 MG CAPSULE PO SCH (07:50)
[2018-02-23] MEDS: QUEtiapine 50 MG TABLET. PO SCH ×3 (07:51→16:16)
[2018-02-23] MEDS: FLUDROCORTISONE 0.1 MG TABLET PO SCH (07:51)
[2018-02-23] MEDS: SERTRALINE 50 MG TABLET. PO SCH (07:51)
[2018-02-23] MEDS: THIAMINE 100 MG TABLET. PO SCH (07:51)
[2018-02-23] MEDS: METOPROLOL TART IMMED RELEASE 25 MG TABLET PO SCH ×2 (09:00→20:21)
[2018-02-23 15:55] VITALS: BP 119/64
[2018-02-23] MEDS: busPIRone 5 MG TABLET. PO SCH (16:16)
[2018-02-23] MEDS: MELATONIN 3 MG TABLET PO SCH (20:21)
[2018-02-23] MEDS: traZODone 100 MG TABLET. PO SCH (20:21)
[2018-02-23] MEDS: MIRTAZAPINE 15 MG TABLET PO SCH (20:24)
[2018-02-23] MEDS: cloNIDine HCL 0.1 MG TABLET PO SCH (20:27)
[2018-02-24] MEDS: LEVOTHYROXINE 25 MCG TABLET. PO SCH (06:04)
[2018-02-24] MEDS: busPIRone 5 MG TABLET. PO SCH ×2 (07:47→17:05)
[2018-02-24] MEDS: ASPIRIN 325 MG TABLET PO SCH (07:47)
[2018-02-24] MEDS: DIVALPROEX 125 MG CAP.SPRINK PO SCH ×4 (07:49→19:46)
[2018-02-24] MEDS: DOCUSATE SODIUM 100 MG CAPSULE PO SCH (07:49)
[2018-02-24] MEDS: FLUDROCORTISONE 0.1 MG TABLET PO SCH (07:50)
[2018-02-24] MEDS: METOPROLOL TART IMMED RELEASE 25 MG TABLET PO SCH ×2 (07:51→19:45)
[2018-02-24] MEDS: THIAMINE 100 MG TABLET. PO SCH (07:51)
[2018-02-24] MEDS: QUEtiapine 50 MG TABLET. PO SCH ×4 (07:51→17:05)
[2018-02-24] MEDS: SERTRALINE 50 MG TABLET. PO SCH (07:52)
[2018-02-24 15:56] VITALS: BP 108/59
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
--- NOTE | 2018-02-24 19:36 | PDOC ---
Exam Note: [facility] Note: Late entry for date of service February 23, 2018. Please also refer to the separate dictated note~for this date of service dictated separately.~Patient seen individually. Discussed the patient with Nursing staff reviewed the chart.~ Reviewed interim history and current functioning. Reviewed vital signs,~Labs/ Radiology~and current medications noted below. Continue current treatment with the changes noted in the dictated addendum note Assessment: Vital Signs: VS - Last 72 Hours, by Label Date Time Temp Pulse Resp B/P (MAP) Pulse Ox O2 Delivery O2 Flow Rate FiO2 02/24/18 15:56 97.2 78 18 108/59 (75) 95 Room Air 02/24/18 07:51 57 119/64 02/23/18 20:27 57 119/64 02/23/18 20:21 57 119/64 02/23/18 15:55 97.2 57 20 119/64 (82) 98 Room Air 02/23/18 05:52 97.3 67 22 106/48 (67) 93 02/22/18 21:23 76 110/72 02/22/18 21:22 76 110/72 02/22/18 16:33 98.2 76 19 110/72 (85) 92 02/22/18 08:19 77 138/85 02/22/18 05:46 96.7 77 20 138/85 (102) 96 Vital Signs Date Time Temp Pulse Resp B/P (MAP) Pulse Ox O2 Delivery O2 Flow Rate FiO2 02/24/18 15:56 97.2 78 18 108/59 (75) 95 Room Air I&O Intake and Output 02/24/18 07:00 Intake Total 1080 ml Balance 1080 ml Intake Oral 1080 ml # Bowel Movements 1 Current Medications: Meds: Current Medications Acetaminophen (Tylenol) 650 mg PRN Q6HRS PRN PO PAIN / TEMP; Start 02/01/18 at 12:15 Multi-Ingredient Ointment (Analgesic [place]) 1 king PRN QID PRN TP MUSCLE PAIN; Start 02/01/18 at 12:15 Al Hydroxide/Mg Hydroxide (Mylanta Plus Xs) 15 ml PRN AFTMEALHC PRN PO DYSPEPSIA; Start 02/01/18 at 12:15 Magnesium Hydroxide (Milk Of Magnesia) 2,400 mg PRN QHS PRN PO CONSTIPATION Last administered on 02/13/18 21:08; Start 02/01/18 at 12:15 Influenza Virus Vaccine (Afluria Trivalent [id number] Syringe) 0.5 ml ONCE ONCE VAX IM Last administered on 02/02/18 10:11; Start 02/02/18 at 09:00; Stop 02/02/18 at 09:01; Status DC Aspirin (Davi Aspirin) 325 mg DAILY PO Last administered on 02/24/18 07:47; Start 02/02/18 at 09:00 Clonidine HCl (Catapres) 0.1 mg QHS PO Last administered on 02/23/18 20:27; Start 02/01/18 at 21:00 Fludrocortisone Acetate (Florinef) 0.1 mg DAILY PO Last administered on 07:50; Start 02/02/18 at 09:00 Lorazepam (Ativan) 0.5 mg PRN Q4HRS PRN PO ANXIETY / AGITATION Last administered on 02/02/18 21:32; Start 02/01/18 at 13:30; Stop 02/06/18 at 18 :59; Status DC Metoprolol Tartrate (Lopressor) 25 mg BID PO Last administered on 02/24/18 07: 51; Start 02/01/18 at 21:00 Divalproex Sodium (Depakote Er) 1,500 mg QHS PO Last administered on 20:16; Start 02/01/18 at 21:00; Stop 02/02/18 at 18:01; Status DC Divalproex Sodium (Depakote Er) 750 mg DAILY PO Last administered on 09:02; Start 02/02/18 at 09:00; Stop 02/02/18 at 18:01; Status DC Docusate Sodium (Colace) 100 mg DAILY PO Last administered on 02/24/18 07:49; Start 02/02/18 at 09:00 Levothyroxine Sodium (Synthroid) 25 mcg DAILY06 PO Last administered on 06:04; Start 02/02/18 at 06:00 Loxapine Succinate (Loxitane) 10 mg TID PO Last administered on 02/02/18 08: 58; Start 02/01/18 at 14:00; Stop 02/02/18 at 11:12; Status DC Nicotine (Nicoderm Cq 14mg) 1 patch DAILY TD ; Start 02/02/18 at 09:00; Stop 02/02/18 at 18:01; Status DC Thiamine HCl (Vitamin B-1) 100 mg DAILY PO Last administered on 02/24/18at 07:51 ; Start 02/02/18 at 09:00 Trazodone HCl (Desyrel) 250 mg QHS PO Last administered on 02/23/18at 20:21; Start 02/01/18 at 21:00 Loxapine Succinate (Loxitane) 10 mg BID PO Last administered on 02/03/18at 19: 24; Start 02/02/18 at 21:00; Stop 02/04/18 at 08:00; Status DC Sertraline HCl (Zoloft) 50 mg DAILY PO Last administered on 02/06/18at 07:26; Start 02/03/18 at 09:00; Stop 02/06/18 at 17:54; Status DC Divalproex Sodium (Depakote Sprinkles) 750 mg TID@0900,1300,2100 PO Last administered on 02/24/18at 07:49; Start 02/02/18 at 21:00 Sertraline HCl (Zoloft) 75 mg DAILY PO Last administered on 02/24/18at 07:52; Start 02/07/18 at 09:00 Olanzapine (ZyPREXA ZYDIS) 2.5 mg PRN Q2HR PRN PO PSYCHOSIS/AGITATION Last administered on 02/24/18at 13:43; Start 02/08/18 at 17:15 Quetiapine Fumarate (SEROquel) 12.5 mg DAILY@0900,1700 PO Last administered on 02/10/18at 17:06; Start 02/09/18 at 17:00; Stop 02/10/18 at 17:26; Status DC Quetiapine Fumarate (SEROquel) 12.5 mg TID@0900,1300,1700 PO Last administered on 02/11/18at 17:28; Start 02/11/18 at 09:00; Stop 02/11/18 at 19:01; Status DC Quetiapine Fumarate (SEROquel) 25 mg TID@0900,1300,1700 PO Last administered on 02/13/18at 13:18; Start 02/12/18 at 09:00; Stop 02/13/18 at 16:58; Status DC Quetiapine Fumarate (SEROquel) 37.5 mg TID@0900,1300,1700 PO Last administered on 02/20/18at 12:42; Start 02/13/18 at 17:00; Stop 02/20/18 at 16:36; Status DC Mirtazapine (Remeron) 7.5 mg QHS PO Last administered on 02/22/18at 21:23; Start 02/16/18 at 21:00; Stop 02/23/18 at 12:05; Status DC Quetiapine Fumarate (SEROquel) 50 mg TID@0900,1300,1700 PO Last administered on 02/24/18at 17:05; Start 02/20/18 at 17:00 Melatonin 3 mg HS PO Last administered on 02/23/18at 20:21; Start 02/21/18 at 21 :00 Mirtazapine (Remeron) 15 mg QHS PO Last administered on 02/23/18at 20:24; Start 02/23/18 at 21:00 Buspirone HCl (Buspar) 5 mg DAILY@0900,1700 PO Last administered on 02/24/18at 17:05; Start 02/23/18 at 17:00 Active Scripts Active Reported Depakote Sprinkle (Divalproex Sodium) 125 Mg Cap.sprink 750 Mg PO [id number] Tylenol (Acetaminophen) 325 Mg Tablet 650 Mg PO PRN Q6HRS PRN Bengay Ultra Strength Crm (Methyl Salicylate/Menth/Camph) 57 Gm Cream..g. 57 Gm TP PRN QID PRN Mag-Al Plus Suspension (Mag Hydrox/Al Hydrox/Simeth) 30 Ml Oral.susp 15 Ml PO PRN QID PRN Milk Of Magnesia (Magnesium Hydroxide) 2,400 Mg/10 Ml Oral.susp 2,400 Mg PO PRN QHS PRN Zyprexa Zydis (Olanzapine) 5 Mg Tab.rapdis 2.5 Mg PO PRN Q2HR PRN Seroquel (Quetiapine Fumarate) 25 Mg Tablet 37.5 Mg PO TIDAFTMEAL Zoloft (Sertraline Hcl) 50 Mg Tablet 75 Mg PO DAILY Remeron (Mirtazapine) 15 Mg Tablet 7.5 Mg PO HS Haldol (Haloperidol Lactate) 5 Mg/1 Ml Ampul 5 Mg IM PRN Q6HRS PRN Docusate Sodium 100 Mg Capsule 100 Mg PO DAILY Trazodone Hcl 100 Mg Tablet 250 Mg PO QHS Loxapine (Loxapine Succinate) 10 Mg Capsule 10 Mg PO TID Ativan (Lorazepam) 1 Mg Tablet 0.5 Mg PO PRN Q4HRS PRN Ativan (Lorazepam) 2 Mg/1 Ml Vial 0.25 Ml IM PRN Q4HRS PRN Levothyroxine Sodium 25 Mcg Tablet 25 Mcg PO DAILYAC Divalproex Sodium Er (Divalproex Sodium) 500 Mg Tab.er.24h 1,500 Mg PO QHS Divalproex Sodium Er (Divalproex Sodium) 500 Mg Tab.er.24h 750 Mg PO DAILY Thiamine Hcl 100 Mg Tablet 100 Mg PO DAILY Multivitamins (Multivitamin) 1 Each Tablet 1 Each PO NICODERM CQ 14mg (Nicotine) 1 Each Patch.td24 1 Patch TD DAILY Metoprolol Tartrate 25 Mg Tablet 25 Mg PO BID Fludrocortisone Acetate 0.1 Mg Tablet 0.1 Mg PO DAILY Clonidine Hcl 0.1 Mg Tablet 0.1 Mg PO QHS Aspirin 325 Mg Tablet 325 Mg PO DAILY I have reviewed the current psychotropics carefully including drug interactions. Risk benefit ratio favors no change other than as noted in my dictated progress note. 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
[2018-02-24] MEDS: MELATONIN 3 MG TABLET PO SCH (19:44)
[2018-02-24] MEDS: MIRTAZAPINE 15 MG TABLET PO SCH (19:45)
[2018-02-24] MEDS: cloNIDine HCL 0.1 MG TABLET PO SCH (19:45)
[2018-02-24] MEDS: traZODone 100 MG TABLET. PO SCH (19:46)
--- NOTE | 2018-02-24 22:48 | PDOC ---
Exam Note: [facility] Note: Please also refer to the separate dictated note~for this date of service dictated separately.~Patient seen individually. Discussed the patient with Nursing staff reviewed the chart.~Reviewed interim history and current functioning. Reviewed vital signs,~Labs/ Radiology~and current medications noted below. Continue current treatment with the changes noted in the dictated addendum note Assessment: Vital Signs: Vital Signs Date Time Temp Pulse Resp B/P (MAP) Pulse Ox O2 Delivery O2 Flow Rate FiO2 02/24/18 19:45 78 108/59 02/24/18 15:56 97.2 18 95 Room Air I&O Intake and Output 02/24/18 07:00 Intake Total 1080 ml Balance 1080 ml Intake Oral 1080 ml # Bowel Movements 1 Current Medications: Meds: Current Medications Acetaminophen (Tylenol) 650 mg PRN Q6HRS PRN PO PAIN / TEMP; Start 02/01/18 at 12:15 Multi-Ingredient Ointment (Analgesic [place]) 1 king PRN QID PRN TP MUSCLE PAIN; Start 02/01/18 at 12:15 Al Hydroxide/Mg Hydroxide (Mylanta Plus Xs) 15 ml PRN AFTMEALHC PRN PO DYSPEPSIA; Start 02/01/18 at 12:15 Magnesium Hydroxide (Milk Of Magnesia) 2,400 mg PRN QHS PRN PO CONSTIPATION Last administered on 02/13/18at 21:08; Start 02/01/18 at 12:15 Influenza Virus Vaccine (Afluria Trivalent [id number] Syringe) 0.5 ml ONCE ONCE VAX IM Last administered on 02/02/18at 10:11; Start 02/02/18 at 09:00; Stop 02/02/18 at 09:01; Status DC Aspirin (Davi Aspirin) 325 mg DAILY PO Last administered on 02/24/18at 07:47; Start 02/02/18 at 09:00 Clonidine HCl (Catapres) 0.1 mg QHS PO Last administered on 02/24/18at 19:45; Start 02/01/18 at 21:00 Fludrocortisone Acetate (Florinef) 0.1 mg DAILY PO Last administered on at 07:50; Start 02/02/18 at 09:00 Lorazepam (Ativan) 0.5 mg PRN Q4HRS PRN PO ANXIETY / AGITATION Last administered on 02/02/18at 21:32; Start 02/01/18 at 13:30; Stop 02/06/18 at 18 :59; Status DC Metoprolol Tartrate (Lopressor) 25 mg BID PO Last administered on 02/24/18at 19: 45; Start 02/01/18 at 21:00 Divalproex Sodium (Depakote Er) 1,500 mg QHS PO Last administered on at 20:16; Start 02/01/18 at 21:00; Stop 02/02/18 at 18:01; Status DC Divalproex Sodium (Depakote Er) 750 mg DAILY PO Last administered on at 09:02; Start 02/02/18 at 09:00; Stop 02/02/18 at 18:01; Status DC Docusate Sodium (Colace) 100 mg DAILY PO Last administered on 02/24/18at 07:49; Start 02/02/18 at 09:00 Levothyroxine Sodium (Synthroid) 25 mcg DAILY06 PO Last administered on at 06:04; Start 02/02/18 at 06:00 Loxapine Succinate (Loxitane) 10 mg TID PO Last administered on 02/02/18at 08: 58; Start 02/01/18 at 14:00; Stop 02/02/18 at 11:12; Status DC Nicotine (Nicoderm Cq 14mg) 1 patch DAILY TD ; Start 02/02/18 at 09:00; Stop 02/02/18 at 18:01; Status DC Thiamine HCl (Vitamin B-1) 100 mg DAILY PO Last administered on 02/24/18at 07:51 ; Start 02/02/18 at 09:00 Trazodone HCl (Desyrel) 250 mg QHS PO Last administered on 02/24/18at 19:46; Start 02/01/18 at 21:00 Loxapine Succinate (Loxitane) 10 mg BID PO Last administered on 02/03/18at 19: 24; Start 02/02/18 at 21:00; Stop 02/04/18 at 08:00; Status DC Sertraline HCl (Zoloft) 50 mg DAILY PO Last administered on 02/06/18at 07:26; Start 02/03/18 at 09:00; Stop 02/06/18 at 17:54; Status DC Divalproex Sodium (Depakote Sprinkles) 750 mg TID@0900,1300,2100 PO Last administered on 02/24/18at 19:46; Start 02/02/18 at 21:00 Sertraline HCl (Zoloft) 75 mg DAILY PO Last administered on 02/24/18at 07:52; Start 02/07/18 at 09:00 Olanzapine (ZyPREXA ZYDIS) 2.5 mg PRN Q2HR PRN PO PSYCHOSIS/AGITATION Last administered on 02/24/18at 13:43; Start 02/08/18 at 17:15 Quetiapine Fumarate (SEROquel) 12.5 mg DAILY@0900,1700 PO Last administered on 02/10/18at 17:06; Start 02/09/18 at 17:00; Stop 02/10/18 at 17:26; Status DC Quetiapine Fumarate (SEROquel) 12.5 mg TID@0900,1300,1700 PO Last administered on 02/11/18at 17:28; Start 02/11/18 at 09:00; Stop 02/11/18 at 19:01; Status DC Quetiapine Fumarate (SEROquel) 25 mg TID@0900,1300,1700 PO Last administered on 02/13/18at 13:18; Start 02/12/18 at 09:00; Stop 02/13/18 at 16:58; Status DC Quetiapine Fumarate (SEROquel) 37.5 mg TID@0900,1300,1700 PO Last administered on 02/20/18at 12:42; Start 02/13/18 at 17:00; Stop 02/20/18 at 16:36; Status DC Mirtazapine (Remeron) 7.5 mg QHS PO Last administered on 02/22/18at 21:23; Start 02/16/18 at 21:00; Stop 02/23/18 at 12:05; Status DC Quetiapine Fumarate (SEROquel) 50 mg TID@0900,1300,1700 PO Last administered on 02/24/18at 17:05; Start 02/20/18 at 17:00 Melatonin 3 mg HS PO Last administered on 02/24/18at 19:44; Start 02/21/18 at 21 :00 Mirtazapine (Remeron) 15 mg QHS PO Last administered on 02/24/18at 19:45; Start 02/23/18 at 21:00 Buspirone HCl (Buspar) 5 mg DAILY@0900,1700 PO Last administered on 02/24/18at 17:05; Start 02/23/18 at 17:00 Active Scripts Active Reported Depakote Sprinkle (Divalproex Sodium) 125 Mg Cap.sprink 750 Mg PO [id number] Tylenol (Acetaminophen) 325 Mg Tablet 650 Mg PO PRN Q6HRS PRN Bengay Ultra Strength Crm (Methyl Salicylate/Menth/Camph) 57 Gm Cream..g. 57 Gm TP PRN QID PRN Mag-Al Plus Suspension (Mag Hydrox/Al Hydrox/Simeth) 30 Ml Oral.susp 15 Ml PO PRN QID PRN Milk Of Magnesia (Magnesium Hydroxide) 2,400 Mg/10 Ml Oral.susp 2,400 Mg PO PRN QHS PRN Zyprexa Zydis (Olanzapine) 5 Mg Tab.rapdis 2.5 Mg PO PRN Q2HR PRN Seroquel (Quetiapine Fumarate) 25 Mg Tablet 37.5 Mg PO TIDAFTMEAL Zoloft (Sertraline Hcl) 50 Mg Tablet 75 Mg PO DAILY Remeron (Mirtazapine) 15 Mg Tablet 7.5 Mg PO HS Haldol (Haloperidol Lactate) 5 Mg/1 Ml Ampul 5 Mg IM PRN Q6HRS PRN Docusate Sodium 100 Mg Capsule 100 Mg PO DAILY Trazodone Hcl 100 Mg Tablet 250 Mg PO QHS Loxapine (Loxapine Succinate) 10 Mg Capsule 10 Mg PO TID Ativan (Lorazepam) 1 Mg Tablet 0.5 Mg PO PRN Q4HRS PRN Ativan (Lorazepam) 2 Mg/1 Ml Vial 0.25 Ml IM PRN Q4HRS PRN Levothyroxine Sodium 25 Mcg Tablet 25 Mcg PO DAILYAC Divalproex Sodium Er (Divalproex Sodium) 500 Mg Tab.er.24h 1,500 Mg PO QHS Divalproex Sodium Er (Divalproex Sodium) 500 Mg Tab.er.24h 750 Mg PO DAILY Thiamine Hcl 100 Mg Tablet 100 Mg PO DAILY Multivitamins (Multivitamin) 1 Each Tablet 1 Each PO NICODERM CQ 14mg (Nicotine) 1 Each Patch.td24 1 Patch TD DAILY Metoprolol Tartrate 25 Mg Tablet 25 Mg PO BID Fludrocortisone Acetate 0.1 Mg Tablet 0.1 Mg PO DAILY Clonidine Hcl 0.1 Mg Tablet 0.1 Mg PO QHS Aspirin 325 Mg Tablet 325 Mg PO DAILY I have reviewed the current psychotropics carefully including drug interactions. Risk benefit ratio favors no change other than as noted in my dictated progress note. 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
[2018-02-25 05:44] VITALS: BP 126/77
[2018-02-25] MEDS: LEVOTHYROXINE 25 MCG TABLET. PO SCH (06:00)
[2018-02-25] MEDS: DOCUSATE SODIUM 100 MG CAPSULE PO SCH (08:02)
[2018-02-25] MEDS: busPIRone 5 MG TABLET. PO SCH ×2 (08:02→17:24)
[2018-02-25] MEDS: ASPIRIN 325 MG TABLET PO SCH (08:02)
[2018-02-25] MEDS: THIAMINE 100 MG TABLET. PO SCH (08:03)
[2018-02-25] MEDS: QUEtiapine 50 MG TABLET. PO SCH ×3 (08:03→17:24)
[2018-02-25] MEDS: SERTRALINE 50 MG TABLET. PO SCH (08:03)
[2018-02-25] MEDS: FLUDROCORTISONE 0.1 MG TABLET PO SCH (08:03)
[2018-02-25] MEDS: DIVALPROEX 125 MG CAP.SPRINK PO SCH ×3 (08:03→20:56)
[2018-02-25] MEDS: METOPROLOL TART IMMED RELEASE 25 MG TABLET PO SCH ×2 (09:00→20:55)
[2018-02-25 10:04] LABS: BASO % 1 % (0-3); EOS # 0.6 x10^3/uL (0.0-0.7); EOS % 11 % (0-3); HEMATOCRIT 38.4 % (39.0-53.0); HEMOGLOBIN 12.7 g/dL (13.0-17.5); LYMPH # 1.4 x10^3/uL (1.0-4.8); LYMPH % 23 % (24-48); MEAN CORPUSCULAR HEMOGLOBIN 31 pg (25-35); MEAN CORPUSCULAR HGB CONC 33 g/dL (31-37); MEAN CORPUSCULAR VOLUME 93 fL (79-100); MONO # 0.7 x10^3/uL (0.0-1.1); MONO % 11 % (0-9); NEUT # 3.1 x10^3uL (1.8-7.7); NEUT % 54 % (31-73); PLATELET COUNT 204 x10^3/uL (140-400); RED BLOOD COUNT 4.12 x10^6/uL (4.30-5.70); RED CELL DISTRIBUTION WIDTH 13.7 % (11.5-14.5); WHITE BLOOD COUNT 5.8 x10^3/uL (4.0-11.0)
[2018-02-25 10:18] LABS: ALBUMIN 3.1 g/dL (3.4-5.0); ALBUMIN/GLOBULIN RATIO 0.9 (1.0-1.7); CREATININE 1.1 mg/dL (0.7-1.3); GFR 66.6; POTASSIUM 3.9 mmol/L (3.5-5.1); TOTAL BILIRUBIN 0.2 mg/dL (0.2-1.0); TOTAL PROTEIN 6.6 g/dL (6.4-8.2)
[2018-02-25 15:43] VITALS: BP 130/80
[2018-02-25] MEDS: MELATONIN 3 MG TABLET PO SCH (20:55)
[2018-02-25] MEDS: cloNIDine HCL 0.1 MG TABLET PO SCH (20:55)
[2018-02-25] MEDS: traZODone 100 MG TABLET. PO SCH (20:55)
[2018-02-25] MEDS: MIRTAZAPINE 15 MG TABLET PO SCH (20:55)
--- NOTE | 2018-02-25 22:48 | PDOC ---
Exam Note: Dionicio Note: Please also refer to the separate dictated note~for this date of service dictated separately.~Patient seen individually. Discussed the patient with Nursing staff reviewed the chart.~Reviewed interim history and current functioning. Reviewed vital signs,~Labs/ Radiology~and current medications noted below. Continue current treatment with the changes noted in the dictated addendum note Assessment: Vital Signs: Vital Signs Date Time Temp Pulse Resp B/P (MAP) Pulse Ox O2 Delivery O2 Flow Rate FiO2 02/25/18 20:55 70 146/78 02/25/18 15:43 98.1 16 96 Room Air I&O Intake and Output 02/25/18 07:00 Intake Total 840 ml Balance 840 ml Intake Oral 840 ml Labs: Laboratory Tests Test 02/25/18 09:26 White Blood Count 5.8 x10^3/uL (4.0-11.0) Red Blood Count 4.12 x10^6/uL (4.30-5.70) L Hemoglobin 12.7 g/dL (13.0-17.5) L Hematocrit 38.4 % (39.0-53.0) L Mean Corpuscular Volume 93 fL (79-100) Mean Corpuscular Hemoglobin 31 pg (25-35) Mean Corpuscular Hemoglobin Concent 33 g/dL (31-37) Red Cell Distribution Width 13.7 % (11.5-14.5) Platelet Count 204 x10^3/uL (140-400) Neutrophils (%) (Auto) 54 % (31-73) Lymphocytes (%) (Auto) 23 % (24-48) L Monocytes (%) (Auto) 11 % (0-9) H Eosinophils (%) (Auto) 11 % (0-3) H Basophils (%) (Auto) 1 % (0-3) Neutrophils # (Auto) 3.1 x10^3uL (1.8-7.7) Lymphocytes # (Auto) 1.4 x10^3/uL (1.0-4.8) Monocytes # (Auto) 0.7 x10^3/uL (0.0-1.1) Eosinophils # (Auto) 0.6 x10^3/uL (0.0-0.7) Basophils # (Auto) 0.0 x10^3/uL (0.0-0.2) Sodium Level 139 mmol/L (136-145) Potassium Level 3.9 mmol/L (3.5-5.1) Chloride Level 105 mmol/L (98-107) Carbon Dioxide Level 31 mmol/L (21-32) Anion Gap 3 (6-14) L Blood Urea Nitrogen 27 mg/dL (8-26) H Creatinine 1.1 mg/dL (0.7-1.3) Estimated GFR (Cockcroft-Gault) 66.6 BUN/Creatinine Ratio 25 (6-20) H Glucose Level 101 mg/dL (70-99) H Calcium Level 9.0 mg/dL (8.5-10.1) Total Bilirubin 0.2 mg/dL (0.2-1.0) Aspartate Amino Transferase (AST) 17 U/L (15-37) Alanine Aminotransferase (ALT) 18 U/L (16-63) Alkaline Phosphatase 60 U/L (46-116) Total Protein 6.6 g/dL (6.4-8.2) Albumin 3.1 g/dL (3.4-5.0) L Albumin/Globulin Ratio 0.9 (1.0-1.7) L Current Medications: Meds: Current Medications Acetaminophen (Tylenol) 650 mg PRN Q6HRS PRN PO PAIN / TEMP; Start 02/01/18 at 12:15 Multi-Ingredient Ointment (Analgesic [place]) 1 king PRN QID PRN TP MUSCLE PAIN; Start 02/01/18 at 12:15 Al Hydroxide/Mg Hydroxide (Mylanta Plus Xs) 15 ml PRN AFTMEALHC PRN PO DYSPEPSIA; Start 02/01/18 at 12:15 Magnesium Hydroxide (Milk Of Magnesia) 2,400 mg PRN QHS PRN PO CONSTIPATION Last administered on 02/13/18at 21:08; Start 02/01/18 at 12:15 Influenza Virus Vaccine (Afluria Trivalent [id number] Syringe) 0.5 ml ONCE ONCE VAX IM Last administered on 02/02/18at 10:11; Start 02/02/18 at 09:00; Stop 02/02/18 at 09:01; Status DC Aspirin (Davi Aspirin) 325 mg DAILY PO Last administered on 02/25/18at 08:02; Start 02/02/18 at 09:00 Clonidine HCl (Catapres) 0.1 mg QHS PO Last administered on 02/25/18 20:55; Start 02/01/18 at 21:00 Fludrocortisone Acetate (Florinef) 0.1 mg DAILY PO Last administered on at 08:03; Start 02/02/18 at 09:00 Lorazepam (Ativan) 0.5 mg PRN Q4HRS PRN PO ANXIETY / AGITATION Last administered on 02/02/18at 21:32; Start 02/01/18 at 13:30; Stop 02/06/18 at 18 :59; Status DC Metoprolol Tartrate (Lopressor) 25 mg BID PO Last administered on 02/25/18 20 :55; Start 02/01/18 at 21:00 Divalproex Sodium (Depakote Er) 1,500 mg QHS PO Last administered on at 20:16; Start 02/01/18 at 21:00; Stop 02/02/18 at 18:01; Status DC Divalproex Sodium (Depakote Er) 750 mg DAILY PO Last administered on at 09:02; Start 02/02/18 at 09:00; Stop 02/02/18 at 18:01; Status DC Docusate Sodium (Colace) 100 mg DAILY PO Last administered on 02/25/18 08:02 ; Start 02/02/18 at 09:00 Levothyroxine Sodium (Synthroid) 25 mcg DAILY06 PO Last administered on at 06:00; Start 02/02/18 at 06:00 Loxapine Succinate (Loxitane) 10 mg TID PO Last administered on 02/02/18at 08: 58; Start 02/01/18 at 14:00; Stop 02/02/18 at 11:12; Status DC Nicotine (Nicoderm Cq 14mg) 1 patch DAILY TD ; Start 02/02/18 at 09:00; Stop 02/02/18 at 18:01; Status DC Thiamine HCl (Vitamin B-1) 100 mg DAILY PO Last administered on 02/25/18at 08: 03; Start 02/02/18 at 09:00 Trazodone HCl (Desyrel) 250 mg QHS PO Last administered on 02/25/18 20:55; Start 02/01/18 at 21:00 Loxapine Succinate (Loxitane) 10 mg BID PO Last administered on 02/03/18at 19: 24; Start 02/02/18 at 21:00; Stop 02/04/18 at 08:00; Status DC Sertraline HCl (Zoloft) 50 mg DAILY PO Last administered on 02/06/18at 07:26; Start 02/03/18 at 09:00; Stop 02/06/18 at 17:54; Status DC Divalproex Sodium (Depakote Sprinkles) 750 mg TID@0900,1300,2100 PO Last administered on 02/25/18at 20:56; Start 02/02/18 at 21:00 Sertraline HCl (Zoloft) 75 mg DAILY PO Last administered on 02/25/18at 08:03; Start 02/07/18 at 09:00 Olanzapine (ZyPREXA ZYDIS) 2.5 mg PRN Q2HR PRN PO PSYCHOSIS/AGITATION Last administered on 02/25/18at 16:00; Start 02/08/18 at 17:15 Quetiapine Fumarate (SEROquel) 12.5 mg DAILY@0900,1700 PO Last administered on 02/10/18at 17:06; Start 02/09/18 at 17:00; Stop 02/10/18 at 17:26; Status DC Quetiapine Fumarate (SEROquel) 12.5 mg TID@0900,1300,1700 PO Last administered on 02/11/18at 17:28; Start 02/11/18 at 09:00; Stop 02/11/18 at 19:01; Status DC Quetiapine Fumarate (SEROquel) 25 mg TID@0900,1300,1700 PO Last administered on 02/13/18at 13:18; Start 02/12/18 at 09:00; Stop 02/13/18 at 16:58; Status DC Quetiapine Fumarate (SEROquel) 37.5 mg TID@0900,1300,1700 PO Last administered on 02/20/18at 12:42; Start 02/13/18 at 17:00; Stop 02/20/18 at 16:36; Status DC Mirtazapine (Remeron) 7.5 mg QHS PO Last administered on 02/22/18at 21:23; Start 02/16/18 at 21:00; Stop 02/23/18 at 12:05; Status DC Quetiapine Fumarate (SEROquel) 50 mg TID@0900,1300,1700 PO Last administered on 02/25/18at 17:24; Start 02/20/18 at 17:00; Stop 02/25/18 at 17:43; Status DC Melatonin 3 mg HS PO Last administered on 02/25/18at 20:55; Start 02/21/18 at 21:00 Mirtazapine (Remeron) 15 mg QHS PO Last administered on 02/25/18at 20:55; Start 02/23/18 at 21:00 Buspirone HCl (Buspar) 5 mg DAILY@0900,1700 PO Last administered on 02/25/18at 17:24; Start 02/23/18 at 17:00 Risperidone (RisperDAL) 0.25 mg TID@0900,1300,1700 PO ; Start 02/26/18 at 09:00 Active Scripts Active Reported Depakote Sprinkle (Divalproex Sodium) 125 Mg Cap.sprink 750 Mg PO [id number] Tylenol (Acetaminophen) 325 Mg Tablet 650 Mg PO PRN Q6HRS PRN Bengay Ultra Strength Crm (Methyl Salicylate/Menth/Camph) 57 Gm Cream..g. 57 Gm TP PRN QID PRN Mag-Al Plus Suspension (Mag Hydrox/Al Hydrox/Simeth) 30 Ml Oral.susp 15 Ml PO PRN QID PRN Milk Of Magnesia (Magnesium Hydroxide) 2,400 Mg/10 Ml Oral.susp 2,400 Mg PO PRN QHS PRN Zyprexa Zydis (Olanzapine) 5 Mg Tab.rapdis 2.5 Mg PO PRN Q2HR PRN Seroquel (Quetiapine Fumarate) 25 Mg Tablet 37.5 Mg PO TIDAFTMEAL Zoloft (Sertraline Hcl) 50 Mg Tablet 75 Mg PO DAILY Remeron (Mirtazapine) 15 Mg Tablet 7.5 Mg PO HS Haldol (Haloperidol Lactate) 5 Mg/1 Ml Ampul 5 Mg IM PRN Q6HRS PRN Docusate Sodium 100 Mg Capsule 100 Mg PO DAILY Trazodone Hcl 100 Mg Tablet 250 Mg PO QHS Loxapine (Loxapine Succinate) 10 Mg Capsule 10 Mg PO TID Ativan (Lorazepam) 1 Mg Tablet 0.5 Mg PO PRN Q4HRS PRN Ativan (Lorazepam) 2 Mg/1 Ml Vial 0.25 Ml IM PRN Q4HRS PRN Levothyroxine Sodium 25 Mcg Tablet 25 Mcg PO DAILYAC Divalproex Sodium Er (Divalproex Sodium) 500 Mg Tab.er.24h 1,500 Mg PO QHS Divalproex Sodium Er (Divalproex Sodium) 500 Mg Tab.er.24h 750 Mg PO DAILY Thiamine Hcl 100 Mg Tablet 100 Mg PO DAILY Multivitamins (Multivitamin) 1 Each Tablet 1 Each PO NICODERM CQ 14mg (Nicotine) 1 Each Patch.td24 1 Patch TD DAILY Metoprolol Tartrate 25 Mg Tablet 25 Mg PO BID Fludrocortisone Acetate 0.1 Mg Tablet 0.1 Mg PO DAILY Clonidine Hcl 0.1 Mg Tablet 0.1 Mg PO QHS Aspirin 325 Mg Tablet 325 Mg PO DAILY I have reviewed the current psychotropics carefully including drug interactions. Risk benefit ratio favors no change other than as noted in my dictated progress note. 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
[2018-02-26] MEDS: LEVOTHYROXINE 25 MCG TABLET. PO SCH (06:12)
[2018-02-26 06:58] VITALS: BP_SYST 162; BP_SYST 176; BP_SYST 185; BP_SYST 193; BP_DIAS 104; BP_DIAS 105; BP_DIAS 94; BP_DIAS 98
[2018-02-26] MEDS: busPIRone 5 MG TABLET. PO SCH ×2 (08:17→17:55)
[2018-02-26] MEDS: ASPIRIN 325 MG TABLET PO SCH (08:17)
[2018-02-26] MEDS: DOCUSATE SODIUM 100 MG CAPSULE PO SCH (08:18)
[2018-02-26] MEDS: FLUDROCORTISONE 0.1 MG TABLET PO SCH (08:18)
[2018-02-26] MEDS: DIVALPROEX 125 MG CAP.SPRINK PO SCH ×3 (08:18→19:32)
[2018-02-26] MEDS: THIAMINE 100 MG TABLET. PO SCH (08:19)
[2018-02-26] MEDS: risperiDONE 0.25 MG TABLET. PO SCH ×3 (08:19→17:55)
[2018-02-26] MEDS: SERTRALINE 50 MG TABLET. PO SCH (08:20)
[2018-02-26] MEDS: METOPROLOL TART IMMED RELEASE 25 MG TABLET PO SCH ×2 (10:09→19:32)
--- NOTE | 2018-02-26 11:19 | PDOC ---
Progress Note. Subjective: I was called by RN to evaluate patient. He has developed bilateral upper extremity nonpitting swelling over past two days, staff reports extremities feel cool. He does have a few skin tears at his LUE with some surrounding erythema however these are minor and unilateral, not likely to cause the bilateral swelling. Bilateral BPs also elevated and patient c/o the extremities aching. No neurologic symptoms or other trauma Objective: Vital Signs: Vital Signs Date Time Temp Pulse Resp B/P (MAP) Pulse Ox O2 Delivery O2 Flow Rate FiO2 02/26/18 06:58 162/104 (123) 02/26/18 06:57 97.0 61 18 97 Room Air I & O: Intake and Output 02/26/18 07:00 Intake Total 1320 ml Balance 1320 ml Intake Oral 1320 ml # Voids 1 Labs: Laboratory Tests Test 02/25/18 09:26 White Blood Count 5.8 x10^3/uL (4.0-11.0) Red Blood Count 4.12 x10^6/uL (4.30-5.70) Hemoglobin 12.7 g/dL (13.0-17.5) Hematocrit 38.4 % (39.0-53.0) Mean Corpuscular Volume 93 fL (79-100) Mean Corpuscular Hemoglobin 31 pg (25-35) Mean Corpuscular Hemoglobin Concent 33 g/dL (31-37) Red Cell Distribution Width 13.7 % (11.5-14.5) Platelet Count 204 x10^3/uL (140-400) Neutrophils (%) (Auto) 54 % (31-73) Lymphocytes (%) (Auto) 23 % (24-48) Monocytes (%) (Auto) 11 % (0-9) Eosinophils (%) (Auto) 11 % (0-3) Basophils (%) (Auto) 1 % (0-3) Neutrophils # (Auto) 3.1 x10^3uL (1.8-7.7) Lymphocytes # (Auto) 1.4 x10^3/uL (1.0-4.8) Monocytes # (Auto) 0.7 x10^3/uL (0.0-1.1) Eosinophils # (Auto) 0.6 x10^3/uL (0.0-0.7) Basophils # (Auto) 0.0 x10^3/uL (0.0-0.2) Sodium Level 139 mmol/L (136-145) Potassium Level 3.9 mmol/L (3.5-5.1) Chloride Level 105 mmol/L (98-107) Carbon Dioxide Level 31 mmol/L (21-32) Anion Gap 3 (6-14) Blood Urea Nitrogen 27 mg/dL (8-26) Creatinine 1.1 mg/dL (0.7-1.3) Estimated GFR (Cockcroft-Gault) 66.6 BUN/Creatinine Ratio 25 (6-20) Glucose Level 101 mg/dL (70-99) Calcium Level 9.0 mg/dL (8.5-10.1) Total Bilirubin 0.2 mg/dL (0.2-1.0) Aspartate Amino Transf (AST/SGOT) 17 U/L (15-37) Alanine Aminotransferase (ALT/SGPT) 18 U/L (16-63) Alkaline Phosphatase 60 U/L (46-116) Total Protein 6.6 g/dL (6.4-8.2) Albumin 3.1 g/dL (3.4-5.0) Albumin/Globulin Ratio 0.9 (1.0-1.7) Physical Exam: Gen.: Alert, pleasant, no apparent distress HEENT: Normocephalic atraumatic Neck: Supple, no lymphadenopathy, nontender Extremities: bilateral upper extremity swelling 2+ nonpitting, pulses 1+ b/l Skin: Warm, dry, few scattered skin tears LUE with mild erythema/induration no purulence Assessment: Bilateral upper extremity edema LUE skin tears w/secondary cellulitis Will check US studies b/l UE, empiric clindamycin PO. GARY ROSARIO DO Feb 26, 2018 11:19
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
[2018-02-26] MEDS: LACTOBACILLUS RHAMNOSUS GG 1 CAPSULE. PO SCH ×2 (12:38→19:32)
[2018-02-26] MEDS: CLINDAMYCIN HCL 150 MG CAPSULE PO SCH ×3 (12:38→23:54)
[2018-02-26 15:52] VITALS: BP 110/69
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
[2018-02-26] MEDS: traZODone 100 MG TABLET. PO SCH (19:31)
[2018-02-26] MEDS: MIRTAZAPINE 15 MG TABLET PO SCH (19:31)
[2018-02-26] MEDS: MELATONIN 3 MG TABLET PO SCH (19:31)
[2018-02-26] MEDS: cloNIDine HCL 0.1 MG TABLET PO SCH (19:32)
--- NOTE | 2018-02-26 20:17 | RAD ---
Bilateral upper extremity venous Doppler 02/26/2018 Clinical indications: Bilateral upper extremity swelling. COMPARISON: None. FINDINGS: Limited examination due to patient movement during the examination. Visualized portions of the bilateral internal jugular, subclavian, axillary, cephalic, brachial, basilic, radial and ulnar veins are patent with normal color Doppler imaging. IMPRESSION: Limited examination due to patient movement with no evidence of DVT in the visualized portions of the upper extremity veins. Electronically signed by: Juan Nicholas MD (02/26/2018 8:14 PM) [facility]
--- NOTE | 2018-02-26 22:50 | PDOC ---
Exam Note: Dionicio Note: Please also refer to the separate dictated note~for this date of service dictated separately.~Patient seen individually. Discussed the patient with Nursing staff reviewed the chart.~Reviewed interim history and current functioning. Reviewed vital signs,~Labs/ Radiology~and current medications noted below. Continue current treatment with the changes noted in the dictated addendum note Assessment: Vital Signs: Vital Signs Date Time Temp Pulse Resp B/P (MAP) Pulse Ox O2 Delivery O2 Flow Rate FiO2 02/26/18 19:32 76 144/78 02/26/18 15:52 97.9 18 97 02/26/18 06:57 Room Air I&O Intake and Output 02/26/18 07:00 Intake Total 1320 ml Balance 1320 ml Intake Oral 1320 ml # Voids 1 Current Medications: Meds: Current Medications Acetaminophen (Tylenol) 650 mg PRN Q6HRS PRN PO PAIN / TEMP Last administered on 02/26/18at 10:29; Start 02/01/18 at 12:15 Multi-Ingredient Ointment (Analgesic [employer]) 1 king PRN QID PRN TP MUSCLE PAIN; Start 02/01/18 at 12:15 Al Hydroxide/Mg Hydroxide (Mylanta Plus Xs) 15 ml PRN AFTMEALHC PRN PO DYSPEPSIA; Start 02/01/18 at 12:15 Magnesium Hydroxide (Milk Of Magnesia) 2,400 mg PRN QHS PRN PO CONSTIPATION Last administered on 02/13/18at 21:08; Start 02/01/18 at 12:15 Influenza Virus Vaccine (Afluria Trivalent [id number] Syringe) 0.5 ml ONCE ONCE VAX IM Last administered on 02/02/18at 10:11; Start 02/02/18 at 09:00; Stop 02/02/18 at 09:01; Status DC Aspirin (Davi Aspirin) 325 mg DAILY PO Last administered on 02/26/18 08:17; Start 02/02/18 at 09:00 Clonidine HCl (Catapres) 0.1 mg QHS PO Last administered on 02/26/18at 19:32; Start 02/01/18 at 21:00 Fludrocortisone Acetate (Florinef) 0.1 mg DAILY PO Last administered on at 08:18; Start 02/02/18 at 09:00 Lorazepam (Ativan) 0.5 mg PRN Q4HRS PRN PO ANXIETY / AGITATION Last administered on 02/02/18at 21:32; Start 02/01/18 at 13:30; Stop 02/06/18 at 18 :59; Status DC Metoprolol Tartrate (Lopressor) 25 mg BID PO Last administered on 02/26/18at 19 :32; Start 02/01/18 at 21:00 Divalproex Sodium (Depakote Er) 1,500 mg QHS PO Last administered on at 20:16; Start 02/01/18 at 21:00; Stop 02/02/18 at 18:01; Status DC Divalproex Sodium (Depakote Er) 750 mg DAILY PO Last administered on at 09:02; Start 02/02/18 at 09:00; Stop 02/02/18 at 18:01; Status DC Docusate Sodium (Colace) 100 mg DAILY PO Last administered on 02/26/18at 08:18 ; Start 02/02/18 at 09:00 Levothyroxine Sodium (Synthroid) 25 mcg DAILY06 PO Last administered on at 06:12; Start 02/02/18 at 06:00 Loxapine Succinate (Loxitane) 10 mg TID PO Last administered on 02/02/18at 08: 58; Start 02/01/18 at 14:00; Stop 02/02/18 at 11:12; Status DC Nicotine (Nicoderm Cq 14mg) 1 patch DAILY TD ; Start 02/02/18 at 09:00; Stop 02/02/18 at 18:01; Status DC Thiamine HCl (Vitamin B-1) 100 mg DAILY PO Last administered on 02/26/18at 08: 19; Start 02/02/18 at 09:00 Trazodone HCl (Desyrel) 250 mg QHS PO Last administered on 02/26/18at 19:31; Start 02/01/18 at 21:00 Loxapine Succinate (Loxitane) 10 mg BID PO Last administered on 02/03/18at 19: 24; Start 02/02/18 at 21:00; Stop 02/04/18 at 08:00; Status DC Sertraline HCl (Zoloft) 50 mg DAILY PO Last administered on 02/06/18at 07:26; Start 02/03/18 at 09:00; Stop 02/06/18 at 17:54; Status DC Divalproex Sodium (Depakote Sprinkles) 750 mg TID@0900,1300,2100 PO Last administered on 02/26/18at 19:32; Start 02/02/18 at 21:00 Sertraline HCl (Zoloft) 75 mg DAILY PO Last administered on 02/26/18at 08:20; Start 02/07/18 at 09:00 Olanzapine (ZyPREXA ZYDIS) 2.5 mg PRN Q2HR PRN PO PSYCHOSIS/AGITATION Last administered on 02/26/18at 19:34; Start 02/08/18 at 17:15 Quetiapine Fumarate (SEROquel) 12.5 mg DAILY@0900,1700 PO Last administered on 02/10/18at 17:06; Start 02/09/18 at 17:00; Stop 02/10/18 at 17:26; Status DC Quetiapine Fumarate (SEROquel) 12.5 mg TID@0900,1300,1700 PO Last administered on 02/11/18at 17:28; Start 02/11/18 at 09:00; Stop 02/11/18 at 19:01; Status DC Quetiapine Fumarate (SEROquel) 25 mg TID@0900,1300,1700 PO Last administered on 02/13/18at 13:18; Start 02/12/18 at 09:00; Stop 02/13/18 at 16:58; Status DC Quetiapine Fumarate (SEROquel) 37.5 mg TID@0900,1300,1700 PO Last administered on 02/20/18at 12:42; Start 02/13/18 at 17:00; Stop 02/20/18 at 16:36; Status DC Mirtazapine (Remeron) 7.5 mg QHS PO Last administered on 02/22/18at 21:23; Start 02/16/18 at 21:00; Stop 02/23/18 at 12:05; Status DC Quetiapine Fumarate (SEROquel) 50 mg TID@0900,1300,1700 PO Last administered on 02/25/18at 17:24; Start 02/20/18 at 17:00; Stop 02/25/18 at 17:43; Status DC Melatonin 3 mg HS PO Last administered on 02/26/18 19:31; Start 02/21/18 at 21:00 Mirtazapine (Remeron) 15 mg QHS PO Last administered on 02/26/18 19:31; Start 02/23/18 at 21:00 Buspirone HCl (Buspar) 5 mg DAILY@0900,1700 PO Last administered on 02/26/18at 17:55; Start 02/23/18 at 17:00 Risperidone (RisperDAL) 0.25 mg TID@0900,1300,1700 PO Last administered on 03/05at 17:55; Start 02/26/18 at 09:00 Clindamycin HCl (Cleocin) 300 mg Q6HRS PO Last administered on 02/26/18at 17:55 ; Start 02/26/18 at 12:00; Stop 02/26/18 at 22:35; Status DC Lactobacillus Rhamnosus (Culturelle) 1 cap BID PO Last administered on at 19:32; Start 02/26/18 at 12:00 Clindamycin HCl (Cleocin) 300 mg Q6HRS PO ; Start 02/27/18 at 00:00; Stop at 11:59 Active Scripts Active Reported Depakote Sprinkle (Divalproex Sodium) 125 Mg Cap.sprink 750 Mg PO [id number] Tylenol (Acetaminophen) 325 Mg Tablet 650 Mg PO PRN Q6HRS PRN Bengay Ultra Strength Crm (Methyl Salicylate/Menth/Camph) 57 Gm Cream..g. 57 Gm TP PRN QID PRN Mag-Al Plus Suspension (Mag Hydrox/Al Hydrox/Simeth) 30 Ml Oral.susp 15 Ml PO PRN QID PRN Milk Of Magnesia (Magnesium Hydroxide) 2,400 Mg/10 Ml Oral.susp 2,400 Mg PO PRN QHS PRN Zyprexa Zydis (Olanzapine) 5 Mg Tab.rapdis 2.5 Mg PO PRN Q2HR PRN Seroquel (Quetiapine Fumarate) 25 Mg Tablet 37.5 Mg PO TIDAFTMEAL Zoloft (Sertraline Hcl) 50 Mg Tablet 75 Mg PO DAILY Remeron (Mirtazapine) 15 Mg Tablet 7.5 Mg PO HS Haldol (Haloperidol Lactate) 5 Mg/1 Ml Ampul 5 Mg IM PRN Q6HRS PRN Docusate Sodium 100 Mg Capsule 100 Mg PO DAILY Trazodone Hcl 100 Mg Tablet 250 Mg PO QHS Loxapine (Loxapine Succinate) 10 Mg Capsule 10 Mg PO TID Ativan (Lorazepam) 1 Mg Tablet 0.5 Mg PO PRN Q4HRS PRN Ativan (Lorazepam) 2 Mg/1 Ml Vial 0.25 Ml IM PRN Q4HRS PRN Levothyroxine Sodium 25 Mcg Tablet 25 Mcg PO DAILYAC Divalproex Sodium Er (Divalproex Sodium) 500 Mg Tab.er.24h 1,500 Mg PO QHS Divalproex Sodium Er (Divalproex Sodium) 500 Mg Tab.er.24h 750 Mg PO DAILY Thiamine Hcl 100 Mg Tablet 100 Mg PO DAILY Multivitamins (Multivitamin) 1 Each Tablet 1 Each PO NICODERM CQ 14mg (Nicotine) 1 Each Patch.td24 1 Patch TD DAILY Metoprolol Tartrate 25 Mg Tablet 25 Mg PO BID Fludrocortisone Acetate 0.1 Mg Tablet 0.1 Mg PO DAILY Clonidine Hcl 0.1 Mg Tablet 0.1 Mg PO QHS Aspirin 325 Mg Tablet 325 Mg PO DAILY I have reviewed the current psychotropics carefully including drug interactions. Risk benefit ratio favors no change other than as noted in my dictated progress note. 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
[2018-02-27] MEDS: LEVOTHYROXINE 25 MCG TABLET. PO SCH (05:43)
[2018-02-27] MEDS: CLINDAMYCIN HCL 150 MG CAPSULE PO SCH ×3 (05:43→17:08)
[2018-02-27 06:42] VITALS: BP 113/79
[2018-02-27] MEDS: DIVALPROEX 125 MG CAP.SPRINK PO SCH ×3 (08:38→20:11)
[2018-02-27] MEDS: ASPIRIN 325 MG TABLET PO SCH (08:38)
[2018-02-27] MEDS: DOCUSATE SODIUM 100 MG CAPSULE PO SCH (08:38)
[2018-02-27] MEDS: busPIRone 5 MG TABLET. PO SCH ×2 (08:38→17:08)
[2018-02-27] MEDS: LACTOBACILLUS RHAMNOSUS GG 1 CAPSULE. PO SCH ×2 (08:38→20:09)
[2018-02-27] MEDS: FLUDROCORTISONE 0.1 MG TABLET PO SCH (08:39)
[2018-02-27] MEDS: risperiDONE 0.25 MG TABLET. PO SCH ×3 (08:39→17:08)
[2018-02-27] MEDS: METOPROLOL TART IMMED RELEASE 25 MG TABLET PO SCH ×2 (08:39→20:09)
[2018-02-27] MEDS: SERTRALINE 50 MG TABLET. PO SCH (08:39)
[2018-02-27] MEDS: THIAMINE 100 MG TABLET. PO SCH (08:40)
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
[2018-02-27 16:03] VITALS: BP 144/83
[2018-02-27] MEDS: MELATONIN 3 MG TABLET PO SCH (20:09)
[2018-02-27] MEDS: MIRTAZAPINE 15 MG TABLET PO SCH (20:09)
[2018-02-27] MEDS: traZODone 100 MG TABLET. PO SCH (20:09)
[2018-02-27] MEDS: cloNIDine HCL 0.1 MG TABLET PO SCH (20:10)
--- NOTE | 2018-02-27 23:01 | PDOC ---
Exam Note: Dionicio Note: Please also refer to the separate dictated note~for this date of service dictated separately.~Patient seen individually. Discussed the patient with Nursing staff reviewed the chart.~Reviewed interim history and current functioning. Reviewed vital signs,~Labs/ Radiology~and current medications noted below. Continue current treatment with the changes noted in the dictated addendum note Assessment: Vital Signs: Vital Signs Date Time Temp Pulse Resp B/P (MAP) Pulse Ox O2 Delivery O2 Flow Rate FiO2 02/27/18 20:10 87 147/74 02/27/18 16:03 98.2 19 95 02/27/18 06:42 Room Air I&O Intake and Output 02/27/18 07:00 Intake Total 1480 ml Balance 1480 ml Intake Oral 1480 ml Current Medications: Meds: Current Medications Acetaminophen (Tylenol) 650 mg PRN Q6HRS PRN PO PAIN / TEMP Last administered on 02/26/18at 10:29; Start 02/01/18 at 12:15 Multi-Ingredient Ointment (Analgesic [place]) 1 king PRN QID PRN TP MUSCLE PAIN; Start 02/01/18 at 12:15 Al Hydroxide/Mg Hydroxide (Mylanta Plus Xs) 15 ml PRN AFTMEALHC PRN PO DYSPEPSIA; Start 02/01/18 at 12:15 Magnesium Hydroxide (Milk Of Magnesia) 2,400 mg PRN QHS PRN PO CONSTIPATION Last administered on 02/13/18at 21:08; Start 02/01/18 at 12:15 Influenza Virus Vaccine (Afluria Trivalent [id number] Syringe) 0.5 ml ONCE ONCE VAX IM Last administered on 02/02/18at 10:11; Start 02/02/18 at 09:00; Stop 02/02/18 at 09:01; Status DC Aspirin (Davi Aspirin) 325 mg DAILY PO Last administered on 02/27/18 08:38; Start 02/02/18 at 09:00 Clonidine HCl (Catapres) 0.1 mg QHS PO Last administered on 02/27/18at 20:10; Start 02/01/18 at 21:00 Fludrocortisone Acetate (Florinef) 0.1 mg DAILY PO Last administered on at 08:39; Start 02/02/18 at 09:00 Lorazepam (Ativan) 0.5 mg PRN Q4HRS PRN PO ANXIETY / AGITATION Last administered on 02/02/18at 21:32; Start 02/01/18 at 13:30; Stop 02/06/18 at 18 :59; Status DC Metoprolol Tartrate (Lopressor) 25 mg BID PO Last administered on 02/27/18at 20 :09; Start 02/01/18 at 21:00 Divalproex Sodium (Depakote Er) 1,500 mg QHS PO Last administered on at 20:16; Start 02/01/18 at 21:00; Stop 02/02/18 at 18:01; Status DC Divalproex Sodium (Depakote Er) 750 mg DAILY PO Last administered on at 09:02; Start 02/02/18 at 09:00; Stop 02/02/18 at 18:01; Status DC Docusate Sodium (Colace) 100 mg DAILY PO Last administered on 02/27/18at 08:38 ; Start 02/02/18 at 09:00 Levothyroxine Sodium (Synthroid) 25 mcg DAILY06 PO Last administered on at 05:43; Start 02/02/18 at 06:00 Loxapine Succinate (Loxitane) 10 mg TID PO Last administered on 02/02/18at 08: 58; Start 02/01/18 at 14:00; Stop 02/02/18 at 11:12; Status DC Nicotine (Nicoderm Cq 14mg) 1 patch DAILY TD ; Start 02/02/18 at 09:00; Stop 02/02/18 at 18:01; Status DC Thiamine HCl (Vitamin B-1) 100 mg DAILY PO Last administered on 02/27/18at 08: 40; Start 02/02/18 at 09:00 Trazodone HCl (Desyrel) 250 mg QHS PO Last administered on 02/27/18at 20:09; Start 02/01/18 at 21:00 Loxapine Succinate (Loxitane) 10 mg BID PO Last administered on 02/03/18at 19: 24; Start 02/02/18 at 21:00; Stop 02/04/18 at 08:00; Status DC Sertraline HCl (Zoloft) 50 mg DAILY PO Last administered on 02/06/18at 07:26; Start 02/03/18 at 09:00; Stop 02/06/18 at 17:54; Status DC Divalproex Sodium (Depakote Sprinkles) 750 mg TID@0900,1300,2100 PO Last administered on 02/27/18at 20:11; Start 02/02/18 at 21:00 Sertraline HCl (Zoloft) 75 mg DAILY PO Last administered on 02/27/18at 08:39; Start 02/07/18 at 09:00 Olanzapine (ZyPREXA ZYDIS) 2.5 mg PRN Q2HR PRN PO PSYCHOSIS/AGITATION Last administered on 02/26/18at 19:34; Start 02/08/18 at 17:15 Quetiapine Fumarate (SEROquel) 12.5 mg DAILY@0900,1700 PO Last administered on 02/10/18at 17:06; Start 02/09/18 at 17:00; Stop 02/10/18 at 17:26; Status DC Quetiapine Fumarate (SEROquel) 12.5 mg TID@0900,1300,1700 PO Last administered on 02/11/18at 17:28; Start 02/11/18 at 09:00; Stop 02/11/18 at 19:01; Status DC Quetiapine Fumarate (SEROquel) 25 mg TID@0900,1300,1700 PO Last administered on 02/13/18at 13:18; Start 02/12/18 at 09:00; Stop 02/13/18 at 16:58; Status DC Quetiapine Fumarate (SEROquel) 37.5 mg TID@0900,1300,1700 PO Last administered on 02/20/18at 12:42; Start 02/13/18 at 17:00; Stop 02/20/18 at 16:36; Status DC Mirtazapine (Remeron) 7.5 mg QHS PO Last administered on 02/22/18at 21:23; Start 02/16/18 at 21:00; Stop 02/23/18 at 12:05; Status DC Quetiapine Fumarate (SEROquel) 50 mg TID@0900,1300,1700 PO Last administered on 02/25/18at 17:24; Start 02/20/18 at 17:00; Stop 02/25/18 at 17:43; Status DC Melatonin 3 mg HS PO Last administered on 02/27/18at 20:09; Start 02/21/18 at 21:00 Mirtazapine (Remeron) 15 mg QHS PO Last administered on 02/27/18at 20:09; Start 02/23/18 at 21:00 Buspirone HCl (Buspar) 5 mg DAILY@0900,1700 PO Last administered on 02/27/18at 17:08; Start 02/23/18 at 17:00 Risperidone (RisperDAL) 0.25 mg TID@0900,1300,1700 PO Last administered on 04/04at 17:08; Start 02/26/18 at 09:00 Clindamycin HCl (Cleocin) 300 mg Q6HRS PO Last administered on 02/26/18at 17:55 ; Start 02/26/18 at 12:00; Stop 02/26/18 at 22:35; Status DC Lactobacillus Rhamnosus (Culturelle) 1 cap BID PO Last administered on at 20:09; Start 02/26/18 at 12:00 Clindamycin HCl (Cleocin) 300 mg Q6HRS PO Last administered on 02/27/18at 17:08 ; Start 02/27/18 at 00:00; Stop 03/08/18 at 11:59 Active Scripts Active Reported Depakote Sprinkle (Divalproex Sodium) 125 Mg Cap.sprink 750 Mg PO [id number] Tylenol (Acetaminophen) 325 Mg Tablet 650 Mg PO PRN Q6HRS PRN Bengay Ultra Strength Crm (Methyl Salicylate/Menth/Camph) 57 Gm Cream..g. 57 Gm TP PRN QID PRN Mag-Al Plus Suspension (Mag Hydrox/Al Hydrox/Simeth) 30 Ml Oral.susp 15 Ml PO PRN QID PRN Milk Of Magnesia (Magnesium Hydroxide) 2,400 Mg/10 Ml Oral.susp 2,400 Mg PO PRN QHS PRN Zyprexa Zydis (Olanzapine) 5 Mg Tab.rapdis 2.5 Mg PO PRN Q2HR PRN Seroquel (Quetiapine Fumarate) 25 Mg Tablet 37.5 Mg PO TIDAFTMEAL Zoloft (Sertraline Hcl) 50 Mg Tablet 75 Mg PO DAILY Remeron (Mirtazapine) 15 Mg Tablet 7.5 Mg PO HS Haldol (Haloperidol Lactate) 5 Mg/1 Ml Ampul 5 Mg IM PRN Q6HRS PRN Docusate Sodium 100 Mg Capsule 100 Mg PO DAILY Trazodone Hcl 100 Mg Tablet 250 Mg PO QHS Loxapine (Loxapine Succinate) 10 Mg Capsule 10 Mg PO TID Ativan (Lorazepam) 1 Mg Tablet 0.5 Mg PO PRN Q4HRS PRN Ativan (Lorazepam) 2 Mg/1 Ml Vial 0.25 Ml IM PRN Q4HRS PRN Levothyroxine Sodium 25 Mcg Tablet 25 Mcg PO DAILYAC Divalproex Sodium Er (Divalproex Sodium) 500 Mg Tab.er.24h 1,500 Mg PO QHS Divalproex Sodium Er (Divalproex Sodium) 500 Mg Tab.er.24h 750 Mg PO DAILY Thiamine Hcl 100 Mg Tablet 100 Mg PO DAILY Multivitamins (Multivitamin) 1 Each Tablet 1 Each PO NICODERM CQ 14mg (Nicotine) 1 Each Patch.td24 1 Patch TD DAILY Metoprolol Tartrate 25 Mg Tablet 25 Mg PO BID Fludrocortisone Acetate 0.1 Mg Tablet 0.1 Mg PO DAILY Clonidine Hcl 0.1 Mg Tablet 0.1 Mg PO QHS Aspirin 325 Mg Tablet 325 Mg PO DAILY I have reviewed the current psychotropics carefully including drug interactions. Risk benefit ratio favors no change other than as noted in my dictated progress note. 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
[2018-02-28] MEDS: CLINDAMYCIN HCL 150 MG CAPSULE PO SCH ×4 (00:42→17:22)
[2018-02-28] MEDS: LEVOTHYROXINE 25 MCG TABLET. PO SCH (05:48)
[2018-02-28] MEDS: busPIRone 5 MG TABLET. PO SCH (08:28)
[2018-02-28] MEDS: DOCUSATE SODIUM 100 MG CAPSULE PO SCH (08:28)
[2018-02-28] MEDS: DIVALPROEX 125 MG CAP.SPRINK PO SCH ×3 (08:28→20:35)
[2018-02-28] MEDS: ASPIRIN 325 MG TABLET PO SCH (08:28)
[2018-02-28] MEDS: LACTOBACILLUS RHAMNOSUS GG 1 CAPSULE. PO SCH ×2 (08:28→20:24)
[2018-02-28] MEDS: METOPROLOL TART IMMED RELEASE 25 MG TABLET PO SCH ×2 (08:29→20:25)
[2018-02-28] MEDS: SERTRALINE 50 MG TABLET. PO SCH (08:29)
[2018-02-28] MEDS: THIAMINE 100 MG TABLET. PO SCH (08:29)
[2018-02-28] MEDS: risperiDONE 0.25 MG TABLET. PO SCH ×3 (08:29→17:22)
[2018-02-28] MEDS: FLUDROCORTISONE 0.1 MG TABLET PO SCH (08:29)
[2018-02-28 15:27] VITALS: BP 144/73
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
[2018-02-28] MEDS: MIRTAZAPINE 15 MG TABLET PO SCH (20:24)
[2018-02-28] MEDS: cloNIDine HCL 0.1 MG TABLET PO SCH (20:24)
[2018-02-28] MEDS: MELATONIN 3 MG TABLET PO SCH (20:24)
[2018-02-28] MEDS: traZODone 100 MG TABLET. PO SCH (20:35)
--- NOTE | 2018-02-28 22:41 | PDOC ---
Exam Note: [facility] Note: Please also refer to the separate dictated note~for this date of service dictated separately.~Patient seen individually. Discussed the patient with Nursing staff reviewed the chart.~Reviewed interim history and current functioning. Reviewed vital signs,~Labs/ Radiology~and current medications noted below. Continue current treatment with the changes noted in the dictated addendum note Assessment: Vital Signs: Vital Signs Date Time Temp Pulse Resp B/P (MAP) Pulse Ox O2 Delivery O2 Flow Rate FiO2 02/28/18 20:25 66 144/73 02/28/18 15:27 97.5 17 96 Room Air I&O Intake and Output 02/28/18 07:00 Intake Total 360 ml Balance 360 ml Intake Oral 360 ml # Voids 1 Current Medications: Meds: Current Medications Acetaminophen (Tylenol) 650 mg PRN Q6HRS PRN PO PAIN / TEMP Last administered on 02/26/18at 10:29; Start 02/01/18 at 12:15 Multi-Ingredient Ointment (Analgesic [place]) 1 king PRN QID PRN TP MUSCLE PAIN; Start 02/01/18 at 12:15 Al Hydroxide/Mg Hydroxide (Mylanta Plus Xs) 15 ml PRN AFTMEALHC PRN PO DYSPEPSIA; Start 02/01/18 at 12:15 Magnesium Hydroxide (Milk Of Magnesia) 2,400 mg PRN QHS PRN PO CONSTIPATION Last administered on 02/13/18at 21:08; Start 02/01/18 at 12:15 Influenza Virus Vaccine (Afluria Trivalent [id number] Syringe) 0.5 ml ONCE ONCE VAX IM Last administered on 02/02/18at 10:11; Start 02/02/18 at 09:00; Stop 02/02/18 at 09:01; Status DC Aspirin (Davi Aspirin) 325 mg DAILY PO Last administered on 02/28/18 08:28; Start 02/02/18 at 09:00 Clonidine HCl (Catapres) 0.1 mg QHS PO Last administered on 02/28/18at 20:24; Start 02/01/18 at 21:00 Fludrocortisone Acetate (Florinef) 0.1 mg DAILY PO Last administered on at 08:29; Start 02/02/18 at 09:00 Lorazepam (Ativan) 0.5 mg PRN Q4HRS PRN PO ANXIETY / AGITATION Last administered on 02/02/18at 21:32; Start 02/01/18 at 13:30; Stop 02/06/18 at 18 :59; Status DC Metoprolol Tartrate (Lopressor) 25 mg BID PO Last administered on 02/28/18at 20 :25; Start 02/01/18 at 21:00 Divalproex Sodium (Depakote Er) 1,500 mg QHS PO Last administered on at 20:16; Start 02/01/18 at 21:00; Stop 02/02/18 at 18:01; Status DC Divalproex Sodium (Depakote Er) 750 mg DAILY PO Last administered on at 09:02; Start 02/02/18 at 09:00; Stop 02/02/18 at 18:01; Status DC Docusate Sodium (Colace) 100 mg DAILY PO Last administered on 02/28/18at 08:28 ; Start 02/02/18 at 09:00 Levothyroxine Sodium (Synthroid) 25 mcg DAILY06 PO Last administered on at 05:48; Start 02/02/18 at 06:00 Loxapine Succinate (Loxitane) 10 mg TID PO Last administered on 02/02/18at 08: 58; Start 02/01/18 at 14:00; Stop 02/02/18 at 11:12; Status DC Nicotine (Nicoderm Cq 14mg) 1 patch DAILY TD ; Start 02/02/18 at 09:00; Stop 02/02/18 at 18:01; Status DC Thiamine HCl (Vitamin B-1) 100 mg DAILY PO Last administered on 02/28/18at 08: 29; Start 02/02/18 at 09:00 Trazodone HCl (Desyrel) 250 mg QHS PO Last administered on 02/28/18at 20:35; Start 02/01/18 at 21:00 Loxapine Succinate (Loxitane) 10 mg BID PO Last administered on 02/03/18at 19: 24; Start 02/02/18 at 21:00; Stop 02/04/18 at 08:00; Status DC Sertraline HCl (Zoloft) 50 mg DAILY PO Last administered on 02/06/18at 07:26; Start 02/03/18 at 09:00; Stop 02/06/18 at 17:54; Status DC Divalproex Sodium (Depakote Sprinkles) 750 mg TID@0900,1300,2100 PO Last administered on 02/28/18at 20:35; Start 02/02/18 at 21:00 Sertraline HCl (Zoloft) 75 mg DAILY PO Last administered on 02/28/18at 08:29; Start 02/07/18 at 09:00 Olanzapine (ZyPREXA ZYDIS) 2.5 mg PRN Q2HR PRN PO PSYCHOSIS/AGITATION Last administered on 02/26/18at 19:34; Start 02/08/18 at 17:15 Quetiapine Fumarate (SEROquel) 12.5 mg DAILY@0900,1700 PO Last administered on 02/10/18at 17:06; Start 02/09/18 at 17:00; Stop 02/10/18 at 17:26; Status DC Quetiapine Fumarate (SEROquel) 12.5 mg TID@0900,1300,1700 PO Last administered on 02/11/18at 17:28; Start 02/11/18 at 09:00; Stop 02/11/18 at 19:01; Status DC Quetiapine Fumarate (SEROquel) 25 mg TID@0900,1300,1700 PO Last administered on 02/13/18at 13:18; Start 02/12/18 at 09:00; Stop 02/13/18 at 16:58; Status DC Quetiapine Fumarate (SEROquel) 37.5 mg TID@0900,1300,1700 PO Last administered on 02/20/18at 12:42; Start 02/13/18 at 17:00; Stop 02/20/18 at 16:36; Status DC Mirtazapine (Remeron) 7.5 mg QHS PO Last administered on 02/22/18at 21:23; Start 02/16/18 at 21:00; Stop 02/23/18 at 12:05; Status DC Quetiapine Fumarate (SEROquel) 50 mg TID@0900,1300,1700 PO Last administered on 02/25/18at 17:24; Start 02/20/18 at 17:00; Stop 02/25/18 at 17:43; Status DC Melatonin 3 mg HS PO Last administered on 02/28/18at 20:24; Start 02/21/18 at 21:00 Mirtazapine (Remeron) 15 mg QHS PO Last administered on 02/28/18at 20:24; Start 02/23/18 at 21:00 Buspirone HCl (Buspar) 5 mg DAILY@0900,1700 PO Last administered on 02/28/18at 08:28; Start 02/23/18 at 17:00; Stop 02/28/18 at 17:07; Status DC Risperidone (RisperDAL) 0.25 mg TID@0900,1300,1700 PO Last administered on at 17:22; Start 02/26/18 at 09:00 Clindamycin HCl (Cleocin) 300 mg Q6HRS PO Last administered on 02/26/18at 17:55 ; Start 02/26/18 at 12:00; Stop 02/26/18 at 22:35; Status DC Lactobacillus Rhamnosus (Culturelle) 1 cap BID PO Last administered on at 20:24; Start 02/26/18 at 12:00 Clindamycin HCl (Cleocin) 300 mg Q6HRS PO Last administered on 02/28/18at 17:22 ; Start 02/27/18 at 00:00; Stop 03/08/18 at 11:59 Buspirone HCl (Buspar) 10 mg DAILY@0900,1700 PO ; Start 03/01/18 at 09:00 Active Scripts Active Reported Depakote Sprinkle (Divalproex Sodium) 125 Mg Cap.sprink 750 Mg PO [id number] Tylenol (Acetaminophen) 325 Mg Tablet 650 Mg PO PRN Q6HRS PRN Bengay Ultra Strength Crm (Methyl Salicylate/Menth/Camph) 57 Gm Cream..g. 57 Gm TP PRN QID PRN Mag-Al Plus Suspension (Mag Hydrox/Al Hydrox/Simeth) 30 Ml Oral.susp 15 Ml PO PRN QID PRN Milk Of Magnesia (Magnesium Hydroxide) 2,400 Mg/10 Ml Oral.susp 2,400 Mg PO PRN QHS PRN Zyprexa Zydis (Olanzapine) 5 Mg Tab.rapdis 2.5 Mg PO PRN Q2HR PRN Seroquel (Quetiapine Fumarate) 25 Mg Tablet 37.5 Mg PO TIDAFTMEAL Zoloft (Sertraline Hcl) 50 Mg Tablet 75 Mg PO DAILY Remeron (Mirtazapine) 15 Mg Tablet 7.5 Mg PO HS Haldol (Haloperidol Lactate) 5 Mg/1 Ml Ampul 5 Mg IM PRN Q6HRS PRN Docusate Sodium 100 Mg Capsule 100 Mg PO DAILY Trazodone Hcl 100 Mg Tablet 250 Mg PO QHS Loxapine (Loxapine Succinate) 10 Mg Capsule 10 Mg PO TID Ativan (Lorazepam) 1 Mg Tablet 0.5 Mg PO PRN Q4HRS PRN Ativan (Lorazepam) 2 Mg/1 Ml Vial 0.25 Ml IM PRN Q4HRS PRN Levothyroxine Sodium 25 Mcg Tablet 25 Mcg PO DAILYAC Divalproex Sodium Er (Divalproex Sodium) 500 Mg Tab.er.24h 1,500 Mg PO QHS Divalproex Sodium Er (Divalproex Sodium) 500 Mg Tab.er.24h 750 Mg PO DAILY Thiamine Hcl 100 Mg Tablet 100 Mg PO DAILY Multivitamins (Multivitamin) 1 Each Tablet 1 Each PO NICODERM CQ 14mg (Nicotine) 1 Each Patch.td24 1 Patch TD DAILY Metoprolol Tartrate 25 Mg Tablet 25 Mg PO BID Fludrocortisone Acetate 0.1 Mg Tablet 0.1 Mg PO DAILY Clonidine Hcl 0.1 Mg Tablet 0.1 Mg PO QHS Aspirin 325 Mg Tablet 325 Mg PO DAILY I have reviewed the current psychotropics carefully including drug interactions. Risk benefit ratio favors no change other than as noted in my dictated progress note. 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
[2018-03-01] MEDS: CLINDAMYCIN HCL 150 MG CAPSULE PO SCH ×4 (00:08→12:42)
[2018-03-01] MEDS: LEVOTHYROXINE 25 MCG TABLET. PO SCH ×2 (05:39→06:00)
[2018-03-01 05:53] VITALS: BP 151/69
[2018-03-01] MEDS: risperiDONE 0.25 MG TABLET. PO SCH ×3 (07:36→17:24)
[2018-03-01] MEDS: DOCUSATE SODIUM 100 MG CAPSULE PO SCH (07:36)
[2018-03-01] MEDS: FLUDROCORTISONE 0.1 MG TABLET PO SCH (07:36)
[2018-03-01] MEDS: SERTRALINE 50 MG TABLET. PO SCH (07:36)
[2018-03-01] MEDS: METOPROLOL TART IMMED RELEASE 25 MG TABLET PO SCH ×2 (07:36→20:38)
[2018-03-01] MEDS: LACTOBACILLUS RHAMNOSUS GG 1 CAPSULE. PO SCH ×2 (07:37→20:37)
[2018-03-01] MEDS: THIAMINE 100 MG TABLET. PO SCH (07:37)
[2018-03-01] MEDS: DIVALPROEX 125 MG CAP.SPRINK PO SCH ×3 (07:37→20:36)
[2018-03-01] MEDS: busPIRone 10 MG TABLET. PO SCH ×2 (07:42→17:24)
[2018-03-01] MEDS: ASPIRIN 325 MG TABLET PO SCH (07:43)
[2018-03-01 07:54] LABS: BASO % 1 % (0-3); EOS # 0.5 x10^3/uL (0.0-0.7); EOS % 9 % (0-3); HEMATOCRIT 39.1 % (39.0-53.0); HEMOGLOBIN 13.1 g/dL (13.0-17.5); LYMPH # 2.3 x10^3/uL (1.0-4.8); LYMPH % 36 % (24-48); MEAN CORPUSCULAR HEMOGLOBIN 31 pg (25-35); MEAN CORPUSCULAR HGB CONC 33 g/dL (31-37); MEAN CORPUSCULAR VOLUME 93 fL (79-100); MONO # 0.8 x10^3/uL (0.0-1.1); MONO % 13 % (0-9); NEUT # 2.7 x10^3uL (1.8-7.7); NEUT % 42 % (31-73); PLATELET COUNT 222 x10^3/uL (140-400); RED CELL DISTRIBUTION WIDTH 14.1 % (11.5-14.5); WHITE BLOOD COUNT 6.4 x10^3/uL (4.0-11.0)
[2018-03-01 08:01] LABS: ALBUMIN 3.3 g/dL (3.4-5.0); ALK PHOS 65 U/L (46-116); ALT (SGPT) 22 U/L (16-63); ANION GAP 6 (6-14); AST (SGOT) 19 U/L (15-37); BLOOD UREA NITROGEN 20 mg/dL (8-26); BUN/CREATININE RATIO 20 (6-20); CALCIUM 8.9 mg/dL (8.5-10.1); CARBON DIOXIDE 31 mmol/L (21-32); CHLORIDE 103 mmol/L (98-107); GFR 74.3; GLUCOSE 86 mg/dL (70-99); POTASSIUM 4.4 mmol/L (3.5-5.1); SODIUM 140 mmol/L (136-145); TOTAL BILIRUBIN 0.2 mg/dL (0.2-1.0); TOTAL PROTEIN 6.7 g/dL (6.4-8.2)
[2018-03-01 08:20] LABS: VAL ACID 45 mcg/mL (50-100)
[2018-03-01] MEDS ORDERED: RISP0.2519 PO (11:12)
[2018-03-01 16:43] VITALS: BP 117/73
--- NOTE | 2018-03-01 20:11 | PN ---
DATE: 02/28/2018 PSYCHIATRIC PROGRESS NOTE This late entry 02/28/2018 covers elements not covered in my initial note. SUBJECTIVE: I met with the patient in the evening. The patient slept 6-3/4 hours previous night. He has been confused, wandering the hallways, resistive to cares but not physically punching or combative with staff. He did take a shower, which is an improvement. REVIEW OF SYSTEMS: No CV, , pulmonary, eye, ENT system symptoms on review. Reliability poor. MENTAL STATUS EXAM: Oriented to himself. Insight, judgment, recent and remote memory, attention, concentration, fund of knowledge poor, consistent with his diagnosis. IMPRESSION: Major neurocognitive disorder, Alzheimer, vascular with delusion, depression, behavioral disturbance; anxiety disorder, unspecified; impulse control disorder, unspecified. PLAN: Continue Risperdal 0.25 mg 3 times a day. Increase BuSpar from 5 mg b.i.d. to 10 mg b.i.d. Valproic acid level therapeutic at 60 on the 02/09/2018 and we will continue Depakote Sprinkles 750 t.i.d., trazodone 250 at bedtime, Zoloft 75 mg a day, Seroquel was discontinued, melatonin 3 mg at bedtime, Remeron 15 mg at bedtime. Check a valproic acid level and adjust the Depakote thereafter as clinically indicated. MAN Margy MOORE MD DR: OZZY/leah JOB#: [id number] / [id number]
[2018-03-01] MEDS: cloNIDine HCL 0.1 MG TABLET PO SCH (20:37)
[2018-03-01] MEDS: traZODone 100 MG TABLET. PO SCH (20:37)
[2018-03-01] MEDS: MIRTAZAPINE 15 MG TABLET PO SCH (20:37)
[2018-03-01] MEDS: MELATONIN 3 MG TABLET PO SCH (20:38)
--- NOTE | 2018-03-01 22:39 | PDOC ---
Exam Note: D[employer] Note: Please also refer to the separate dictated note~for this date of service dictated separately.~Patient seen individually. Discussed the patient with Nursing staff reviewed the chart.~Reviewed interim history and current functioning. Reviewed vital signs,~Labs/ Radiology~and current medications noted below. Continue current treatment with the changes noted in the dictated addendum note Assessment: Vital Signs: Vital Signs Date Time Temp Pulse Resp B/P (MAP) Pulse Ox O2 Delivery O2 Flow Rate FiO2 03/01/18 20:38 58 117/73 03/01/18 16:43 98.0 18 100 Room Air I&O Intake and Output 03/01/18 07:00 Intake Total 1920 ml Balance 1920 ml Intake Oral 1920 ml # Voids 1 # Bowel Movements 3 Labs: Laboratory Tests Test 03/01/18 07:24 White Blood Count 6.4 x10^3/uL (4.0-11.0) Red Blood Count 4.20 x10^6/uL (4.30-5.70) L Hemoglobin 13.1 g/dL (13.0-17.5) Hematocrit 39.1 % (39.0-53.0) Mean Corpuscular Volume 93 fL (79-100) Mean Corpuscular Hemoglobin 31 pg (25-35) Mean Corpuscular Hemoglobin Concent 33 g/dL (31-37) Red Cell Distribution Width 14.1 % (11.5-14.5) Platelet Count 222 x10^3/uL (140-400) Neutrophils (%) (Auto) 42 % (31-73) Lymphocytes (%) (Auto) 36 % (24-48) Monocytes (%) (Auto) 13 % (0-9) H Eosinophils (%) (Auto) 9 % (0-3) H Basophils (%) (Auto) 1 % (0-3) Neutrophils # (Auto) 2.7 x10^3uL (1.8-7.7) Lymphocytes # (Auto) 2.3 x10^3/uL (1.0-4.8) Monocytes # (Auto) 0.8 x10^3/uL (0.0-1.1) Eosinophils # (Auto) 0.5 x10^3/uL (0.0-0.7) Basophils # (Auto) 0.0 x10^3/uL (0.0-0.2) Sodium Level 140 mmol/L (136-145) Potassium Level 4.4 mmol/L (3.5-5.1) Chloride Level 103 mmol/L (98-107) Carbon Dioxide Level 31 mmol/L (21-32) Anion Gap 6 (6-14) Blood Urea Nitrogen 20 mg/dL (8-26) Creatinine 1.0 mg/dL (0.7-1.3) Estimated GFR (Cockcroft-Gault) 74.3 BUN/Creatinine Ratio 20 (6-20) Glucose Level 86 mg/dL (70-99) Calcium Level 8.9 mg/dL (8.5-10.1) Total Bilirubin 0.2 mg/dL (0.2-1.0) Aspartate Amino Transferase (AST) 19 U/L (15-37) Alanine Aminotransferase (ALT) 22 U/L (16-63) Alkaline Phosphatase 65 U/L (46-116) Total Protein 6.7 g/dL (6.4-8.2) Albumin 3.3 g/dL (3.4-5.0) L Albumin/Globulin Ratio 1.0 (1.0-1.7) Valproic Acid Level 45 mcg/mL (50-100) L Valproic Acid Last Dose Date 03/02/18 Valproic Acid Last Dose Time 2100 Current Medications: Meds: Current Medications Acetaminophen (Tylenol) 650 mg PRN Q6HRS PRN PO PAIN / TEMP Last administered on 02/26/18at 10:29; Start 02/01/18 at 12:15 Multi-Ingredient Ointment (Analgesic [place]) 1 king PRN QID PRN TP MUSCLE PAIN; Start 02/01/18 at 12:15 Al Hydroxide/Mg Hydroxide (Mylanta Plus Xs) 15 ml PRN AFTMEALHC PRN PO DYSPEPSIA; Start 02/01/18 at 12:15 Magnesium Hydroxide (Milk Of Magnesia) 2,400 mg PRN QHS PRN PO CONSTIPATION Last administered on 02/13/18at 21:08; Start 02/01/18 at 12:15 Influenza Virus Vaccine (Afluria Trivalent [id number] Syringe) 0.5 ml ONCE ONCE VAX IM Last administered on 02/02/18at 10:11; Start 02/02/18 at 09:00; Stop 02/02/18 at 09:01; Status DC Aspirin (Davi Aspirin) 325 mg DAILY PO Last administered on 03/01/18 07:43; Start 02/02/18 at 09:00 Clonidine HCl (Catapres) 0.1 mg QHS PO Last administered on 03/01/18at 20:37; Start 02/01/18 at 21:00 Fludrocortisone Acetate (Florinef) 0.1 mg DAILY PO Last administered on at 07:36; Start 02/02/18 at 09:00 Lorazepam (Ativan) 0.5 mg PRN Q4HRS PRN PO ANXIETY / AGITATION Last administered on 02/02/18at 21:32; Start 02/01/18 at 13:30; Stop 02/06/18 at 18 :59; Status DC Metoprolol Tartrate (Lopressor) 25 mg BID PO Last administered on 03/01/18at 20 :38; Start 02/01/18 at 21:00 Divalproex Sodium (Depakote Er) 1,500 mg QHS PO Last administered on at 20:16; Start 02/01/18 at 21:00; Stop 02/02/18 at 18:01; Status DC Divalproex Sodium (Depakote Er) 750 mg DAILY PO Last administered on at 09:02; Start 02/02/18 at 09:00; Stop 02/02/18 at 18:01; Status DC Docusate Sodium (Colace) 100 mg DAILY PO Last administered on 03/01/18at 07:36 ; Start 02/02/18 at 09:00 Levothyroxine Sodium (Synthroid) 25 mcg DAILY06 PO Last administered on at 05:48; Start 02/02/18 at 06:00 Loxapine Succinate (Loxitane) 10 mg TID PO Last administered on 02/02/18at 08: 58; Start 02/01/18 at 14:00; Stop 02/02/18 at 11:12; Status DC Nicotine (Nicoderm Cq 14mg) 1 patch DAILY TD ; Start 02/02/18 at 09:00; Stop 02/02/18 at 18:01; Status DC Thiamine HCl (Vitamin B-1) 100 mg DAILY PO Last administered on 03/01/18at 07: 37; Start 02/02/18 at 09:00 Trazodone HCl (Desyrel) 250 mg QHS PO Last administered on 03/01/18at 20:37; Start 02/01/18 at 21:00 Loxapine Succinate (Loxitane) 10 mg BID PO Last administered on 02/03/18at 19: 24; Start 02/02/18 at 21:00; Stop 02/04/18 at 08:00; Status DC Sertraline HCl (Zoloft) 50 mg DAILY PO Last administered on 02/06/18at 07:26; Start 02/03/18 at 09:00; Stop 02/06/18 at 17:54; Status DC Divalproex Sodium (Depakote Sprinkles) 750 mg TID@0900,1300,2100 PO Last administered on 03/01/18at 12:42; Start 02/02/18 at 21:00; Stop 03/01/18 at 17 :09; Status DC Sertraline HCl (Zoloft) 75 mg DAILY PO Last administered on 03/01/18at 07:36; Start 02/07/18 at 09:00 Olanzapine (ZyPREXA ZYDIS) 2.5 mg PRN Q2HR PRN PO PSYCHOSIS/AGITATION Last administered on 02/26/18at 19:34; Start 02/08/18 at 17:15 Quetiapine Fumarate (SEROquel) 12.5 mg DAILY@0900,1700 PO Last administered on 02/10/18at 17:06; Start 02/09/18 at 17:00; Stop 02/10/18 at 17:26; Status DC Quetiapine Fumarate (SEROquel) 12.5 mg TID@0900,1300,1700 PO Last administered on 02/11/18at 17:28; Start 02/11/18 at 09:00; Stop 02/11/18 at 19:01; Status DC Quetiapine Fumarate (SEROquel) 25 mg TID@0900,1300,1700 PO Last administered on 02/13/18at 13:18; Start 02/12/18 at 09:00; Stop 02/13/18 at 16:58; Status DC Quetiapine Fumarate (SEROquel) 37.5 mg TID@0900,1300,1700 PO Last administered on 02/20/18 12:42; Start 02/13/18 at 17:00; Stop 02/20/18 at 16:36; Status DC Mirtazapine (Remeron) 7.5 mg QHS PO Last administered on 02/22/18at 21:23; Start 02/16/18 at 21:00; Stop 02/23/18 at 12:05; Status DC Quetiapine Fumarate (SEROquel) 50 mg TID@0900,1300,1700 PO Last administered on 02/25/18at 17:24; Start 02/20/18 at 17:00; Stop 02/25/18 at 17:43; Status DC Melatonin 3 mg HS PO Last administered on 03/01/18at 20:38; Start 02/21/18 at 21:00 Mirtazapine (Remeron) 15 mg QHS PO Last administered on 03/01/18at 20:37; Start 02/23/18 at 21:00 Buspirone HCl (Buspar) 5 mg DAILY@0900,1700 PO Last administered on 02/28/18at 08:28; Start 02/23/18 at 17:00; Stop 02/28/18 at 17:07; Status DC Risperidone (RisperDAL) 0.25 mg TID@0900,1300,1700 PO Last administered on at 17:24; Start 02/26/18 at 09:00 Clindamycin HCl (Cleocin) 300 mg Q6HRS PO Last administered on 02/26/18at 17:55 ; Start 02/26/18 at 12:00; Stop 02/26/18 at 22:35; Status DC Lactobacillus Rhamnosus (Culturelle) 1 cap BID PO Last administered on at 20:37; Start 02/26/18 at 12:00 Clindamycin HCl (Cleocin) 300 mg Q6HRS PO Last administered on 03/01/18at 12:42 ; Start 02/27/18 at 00:00; Stop 03/01/18 at 16:32; Status DC Buspirone HCl (Buspar) 10 mg DAILY@0900,1700 PO Last administered on at 17:24; Start 03/01/18 at 09:00 Divalproex Sodium (Depakote Sprinkles) 750 mg BID@1300,2100 PO Last administered on 03/01/18at 20:36; Start 03/01/18 at 21:00 Divalproex Sodium (Depakote Sprinkles) 1,000 mg DAILY PO ; Start 03/02/18 at 09 :00 Active Scripts Active Reported Risperdal (Risperidone) 0.25 Mg Tablet 0.25 Mg PO DAILY@0900,1300,1700 Depakote Sprinkle (Divalproex Sodium) 125 Mg Cap.sprink 750 Mg PO [id number] Tylenol (Acetaminophen) 325 Mg Tablet 650 Mg PO PRN Q6HRS PRN Bengay Ultra Strength Crm (Methyl Salicylate/Menth/Camph) 57 Gm Cream..g. 57 Gm TP PRN QID PRN Mag-Al Plus Suspension (Mag Hydrox/Al Hydrox/Simeth) 30 Ml Oral.susp 15 Ml PO PRN QID PRN Milk Of Magnesia (Magnesium Hydroxide) 2,400 Mg/10 Ml Oral.susp 2,400 Mg PO PRN QHS PRN Zyprexa Zydis (Olanzapine) 5 Mg Tab.rapdis 2.5 Mg PO PRN Q2HR PRN Seroquel (Quetiapine Fumarate) 25 Mg Tablet 37.5 Mg PO TIDAFTMEAL Zoloft (Sertraline Hcl) 50 Mg Tablet 75 Mg PO DAILY Remeron (Mirtazapine) 15 Mg Tablet 7.5 Mg PO HS Haldol (Haloperidol Lactate) 5 Mg/1 Ml Ampul 5 Mg IM PRN Q6HRS PRN Docusate Sodium 100 Mg Capsule 100 Mg PO DAILY Trazodone Hcl 100 Mg Tablet 250 Mg PO QHS Loxapine (Loxapine Succinate) 10 Mg Capsule 10 Mg PO TID Ativan (Lorazepam) 1 Mg Tablet 0.5 Mg PO PRN Q4HRS PRN Ativan (Lorazepam) 2 Mg/1 Ml Vial 0.25 Ml IM PRN Q4HRS PRN Levothyroxine Sodium 25 Mcg Tablet 25 Mcg PO DAILYAC Divalproex Sodium Er (Divalproex Sodium) 500 Mg Tab.er.24h 1,500 Mg PO QHS Divalproex Sodium Er (Divalproex Sodium) 500 Mg Tab.er.24h 750 Mg PO DAILY Thiamine Hcl 100 Mg Tablet 100 Mg PO DAILY Multivitamins (Multivitamin) 1 Each Tablet 1 Each PO NICODERM CQ 14mg (Nicotine) 1 Each Patch.td24 1 Patch TD DAILY Metoprolol Tartrate 25 Mg Tablet 25 Mg PO BID Fludrocortisone Acetate 0.1 Mg Tablet 0.1 Mg PO DAILY Clonidine Hcl 0.1 Mg Tablet 0.1 Mg PO QHS Aspirin 325 Mg Tablet 325 Mg PO DAILY I have reviewed the current psychotropics carefully including drug interactions. Risk benefit ratio favors no change other than as noted in my dictated progress note. 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
[2018-03-02] MEDS ORDERED: DIVA125C2 PO (00:52)
[2018-03-02] MEDS ORDERED: MELA3TAB43 PO (00:56)
[2018-03-02] MEDS ORDERED: BUSP10TA PO (01:00)
[2018-03-02] MEDS ORDERED: CLON0.1T PO (01:01)
[2018-03-02] MEDS: LEVOTHYROXINE 25 MCG TABLET. PO SCH (05:30)
[2018-03-02 06:00] VITALS: BP 113/68
[2018-03-02] MEDS: busPIRone 10 MG TABLET. PO SCH ×2 (07:59→17:16)
[2018-03-02] MEDS: ASPIRIN 325 MG TABLET PO SCH (07:59)
[2018-03-02] MEDS: risperiDONE 0.25 MG TABLET. PO SCH ×3 (07:59→17:16)
[2018-03-02] MEDS: FLUDROCORTISONE 0.1 MG TABLET PO SCH (08:00)
[2018-03-02] MEDS: SERTRALINE 50 MG TABLET. PO SCH (08:00)
[2018-03-02] MEDS: THIAMINE 100 MG TABLET. PO SCH (08:00)
[2018-03-02] MEDS: METOPROLOL TART IMMED RELEASE 25 MG TABLET PO SCH ×2 (08:01→19:32)
[2018-03-02] MEDS: DOCUSATE SODIUM 100 MG CAPSULE PO SCH (08:01)
[2018-03-02] MEDS: DIVALPROEX 125 MG CAP.SPRINK PO SCH ×3 (08:04→19:35)
[2018-03-02 15:55] VITALS: BP 105/63
[2018-03-02 18:18] LABS: BILIRUBIN,URINE NEG (NEG); CLARITY,URINE HAZY; COLOR,URINE YELLOW; GLUCOSE,URINE NEG (NEG)
[2018-03-02 18:19] LABS: AMORPHOUS SEDIMENT,UR PRESENT /HPF; BACTERIA,URINE FEW /HPF (0-FEW); NITRITE,URINE NEG (NEG); RBC,URINE OCC /HPF (0-2); SQUAMOUS EPITHELIAL CELL,UR FEW /LPF; UROBILINOGEN,URINE 1 mg/dL (0.2 mg/dL); WBC,URINE OCC /HPF (0-4)
[2018-03-02] MEDS: MIRTAZAPINE 15 MG TABLET PO SCH (19:31)
[2018-03-02] MEDS: MELATONIN 3 MG TABLET PO SCH (19:31)
[2018-03-02] MEDS: cloNIDine HCL 0.1 MG TABLET PO SCH (19:33)
[2018-03-02] MEDS: traZODone 100 MG TABLET. PO SCH (19:35)
--- NOTE | 2018-03-02 22:55 | PDOC ---
Exam Note: [facility] Note: Please also refer to the separate dictated note~for this date of service dictated separately.~Patient seen individually. Discussed the patient with Nursing staff reviewed the chart.~Reviewed interim history and current functioning. Reviewed vital signs,~Labs/ Radiology~and current medications noted below. Continue current treatment with the changes noted in the dictated addendum note Assessment: Vital Signs: Vital Signs Date Time Temp Pulse Resp B/P (MAP) Pulse Ox O2 Delivery O2 Flow Rate FiO2 03/02/18 19:33 87 105/63 03/02/18 15:55 98.9 20 94 Room Air I&O Intake and Output 03/02/18 07:00 Intake Total 720 ml Balance 720 ml Intake Oral 720 ml # Voids 2 Labs: Laboratory Tests Test 03/02/18 18:00 Urine Collection Type Unknown Urine Color Yellow Urine Clarity Hazy Urine pH 7.0 Urine Specific [place] 1.020 Urine Protein Neg (NEG-TRACE) Urine Glucose (UA) Neg mg/dL (NEG) Urine Ketones (Stick) Neg mg/dL (NEG) Urine Blood Neg (NEG) Urine Nitrite Neg (NEG) Urine Bilirubin Neg (NEG) Urine Urobilinogen Dipstick 1 mg/dL (0.2 mg/dL) Urine Leukocyte Esterase Neg (NEG) Urine RBC Occ /HPF (0-2) Urine WBC Occ /HPF (0-4) Urine Squamous Epithelial Cells Few /LPF Urine Amorphous Sediment Present /HPF Urine Bacteria Few /HPF (0-FEW) Urine Mucus Slight /LPF Current Medications: Meds: Current Medications Acetaminophen (Tylenol) 650 mg PRN Q6HRS PRN PO PAIN / TEMP Last administered on 02/26/18at 10:29; Start 02/01/18 at 12:15 Multi-Ingredient Ointment (Analgesic [place]) 1 king PRN QID PRN TP MUSCLE PAIN; Start 02/01/18 at 12:15 Al Hydroxide/Mg Hydroxide (Mylanta Plus Xs) 15 ml PRN AFTMEALHC PRN PO DYSPEPSIA; Start 02/01/18 at 12:15 Magnesium Hydroxide (Milk Of Magnesia) 2,400 mg PRN QHS PRN PO CONSTIPATION Last administered on 02/13/18at 21:08; Start 02/01/18 at 12:15 Influenza Virus Vaccine (Afluria Trivalent [id number] Syringe) 0.5 ml ONCE ONCE VAX IM Last administered on 02/02/18at 10:11; Start 02/02/18 at 09:00; Stop 02/02/18 at 09:01; Status DC Aspirin (Davi Aspirin) 325 mg DAILY PO Last administered on 03/02/18 07:59; Start 02/02/18 at 09:00 Clonidine HCl (Catapres) 0.1 mg QHS PO Last administered on 03/02/18 19:33; Start 02/01/18 at 21:00 Fludrocortisone Acetate (Florinef) 0.1 mg DAILY PO Last administered on at 08:00; Start 02/02/18 at 09:00 Lorazepam (Ativan) 0.5 mg PRN Q4HRS PRN PO ANXIETY / AGITATION Last administered on 02/02/18 21:32; Start 02/01/18 at 13:30; Stop 02/06/18 at 18 :59; Status DC Metoprolol Tartrate (Lopressor) 25 mg BID PO Last administered on 03/02/18at 19 :32; Start 02/01/18 at 21:00 Divalproex Sodium (Depakote Er) 1,500 mg QHS PO Last administered on at 20:16; Start 02/01/18 at 21:00; Stop 02/02/18 at 18:01; Status DC Divalproex Sodium (Depakote Er) 750 mg DAILY PO Last administered on at 09:02; Start 02/02/18 at 09:00; Stop 02/02/18 at 18:01; Status DC Docusate Sodium (Colace) 100 mg DAILY PO Last administered on 03/02/18at 08:01 ; Start 02/02/18 at 09:00 Levothyroxine Sodium (Synthroid) 25 mcg DAILY06 PO Last administered on at 05:30; Start 02/02/18 at 06:00 Loxapine Succinate (Loxitane) 10 mg TID PO Last administered on 02/02/18at 08: 58; Start 02/01/18 at 14:00; Stop 02/02/18 at 11:12; Status DC Nicotine (Nicoderm Cq 14mg) 1 patch DAILY TD ; Start 02/02/18 at 09:00; Stop 02/02/18 at 18:01; Status DC Thiamine HCl (Vitamin B-1) 100 mg DAILY PO Last administered on 03/02/18at 08: 00; Start 02/02/18 at 09:00 Trazodone HCl (Desyrel) 250 mg QHS PO Last administered on 03/02/18at 19:35; Start 02/01/18 at 21:00 Loxapine Succinate (Loxitane) 10 mg BID PO Last administered on 02/03/18at 19: 24; Start 02/02/18 at 21:00; Stop 02/04/18 at 08:00; Status DC Sertraline HCl (Zoloft) 50 mg DAILY PO Last administered on 02/06/18at 07:26; Start 02/03/18 at 09:00; Stop 02/06/18 at 17:54; Status DC Divalproex Sodium (Depakote Sprinkles) 750 mg TID@0900,1300,2100 PO Last administered on 03/01/18at 12:42; Start 02/02/18 at 21:00; Stop 03/01/18 at 17 :09; Status DC Sertraline HCl (Zoloft) 75 mg DAILY PO Last administered on 03/02/18at 08:00; Start 02/07/18 at 09:00 Olanzapine (ZyPREXA ZYDIS) 2.5 mg PRN Q2HR PRN PO PSYCHOSIS/AGITATION Last administered on 02/26/18at 19:34; Start 02/08/18 at 17:15 Quetiapine Fumarate (SEROquel) 12.5 mg DAILY@0900,1700 PO Last administered on 02/10/18at 17:06; Start 02/09/18 at 17:00; Stop 02/10/18 at 17:26; Status DC Quetiapine Fumarate (SEROquel) 12.5 mg TID@0900,1300,1700 PO Last administered on 02/11/18at 17:28; Start 02/11/18 at 09:00; Stop 02/11/18 at 19:01; Status DC Quetiapine Fumarate (SEROquel) 25 mg TID@0900,1300,1700 PO Last administered on 02/13/18at 13:18; Start 02/12/18 at 09:00; Stop 02/13/18 at 16:58; Status DC Quetiapine Fumarate (SEROquel) 37.5 mg TID@0900,1300,1700 PO Last administered on 02/20/18at 12:42; Start 02/13/18 at 17:00; Stop 02/20/18 at 16:36; Status DC Mirtazapine (Remeron) 7.5 mg QHS PO Last administered on 02/22/18at 21:23; Start 02/16/18 at 21:00; Stop 02/23/18 at 12:05; Status DC Quetiapine Fumarate (SEROquel) 50 mg TID@0900,1300,1700 PO Last administered on 02/25/18at 17:24; Start 02/20/18 at 17:00; Stop 02/25/18 at 17:43; Status DC Melatonin 3 mg HS PO Last administered on 03/02/18at 19:31; Start 02/21/18 at 21:00 Mirtazapine (Remeron) 15 mg QHS PO Last administered on 03/02/18at 19:31; Start 02/23/18 at 21:00 Buspirone HCl (Buspar) 5 mg DAILY@0900,1700 PO Last administered on 02/28/18at 08:28; Start 02/23/18 at 17:00; Stop 02/28/18 at 17:07; Status DC Risperidone (RisperDAL) 0.25 mg TID@0900,1300,1700 PO Last administered on at 17:16; Start 02/26/18 at 09:00 Clindamycin HCl (Cleocin) 300 mg Q6HRS PO Last administered on 02/26/18at 17:55 ; Start 02/26/18 at 12:00; Stop 02/26/18 at 22:35; Status DC Lactobacillus Rhamnosus (Culturelle) 1 cap BID PO Last administered on at 20:37; Start 02/26/18 at 12:00; Stop 03/02/18 at 01:27; Status DC Clindamycin HCl (Cleocin) 300 mg Q6HRS PO Last administered on 03/01/18at 12:42 ; Start 02/27/18 at 00:00; Stop 11/14/18 at 16:32; Status DC Buspirone HCl (Buspar) 10 mg DAILY@0900,1700 PO Last administered on at 17:16; Start 03/01/18 at 09:00 Divalproex Sodium (Depakote Sprinkles) 750 mg BID@1300,2100 PO Last administered on 03/02/18at 19:35; Start 03/01/18 at 21:00 Divalproex Sodium (Depakote Sprinkles) 1,000 mg DAILY PO Last administered on 03/02/18at 08:04; Start 03/02/18 at 09:00 Active Scripts Active Reported Clonidine Hcl 0.1 Mg Tablet 0.1 Mg PO HS Buspirone Hcl 10 Mg Tablet 10 Mg PO [id number] Melatonin 3 Mg Tab.rapdis 3 Mg PO HS Depakote Sprinkle (Divalproex Sodium) 125 Mg Cap.sprink 1,000 Mg PO DAILY Risperdal (Risperidone) 0.25 Mg Tablet 0.25 Mg PO DAILY@0900,1300,1700 Depakote Sprinkle (Divalproex Sodium) 125 Mg Cap.sprink 750 Mg PO [id number] Tylenol (Acetaminophen) 325 Mg Tablet 650 Mg PO PRN Q6HRS PRN Bengay Ultra Strength Crm (Methyl Salicylate/Menth/Camph) 57 Gm Cream..g. 57 Gm TP PRN QID PRN Mag-Al Plus Suspension (Mag Hydrox/Al Hydrox/Simeth) 30 Ml Oral.susp 15 Ml PO PRN QID PRN Milk Of Magnesia (Magnesium Hydroxide) 2,400 Mg/10 Ml Oral.susp 2,400 Mg PO PRN QHS PRN Zyprexa Zydis (Olanzapine) 5 Mg Tab.rapdis 2.5 Mg PO PRN Q2HR PRN Seroquel (Quetiapine Fumarate) 25 Mg Tablet 37.5 Mg PO TIDAFTMEAL Zoloft (Sertraline Hcl) 50 Mg Tablet 75 Mg PO DAILY Remeron (Mirtazapine) 15 Mg Tablet 7.5 Mg PO HS Haldol (Haloperidol Lactate) 5 Mg/1 Ml Ampul 5 Mg IM PRN Q6HRS PRN Docusate Sodium 100 Mg Capsule 100 Mg PO DAILY Trazodone Hcl 100 Mg Tablet 250 Mg PO QHS Loxapine (Loxapine Succinate) 10 Mg Capsule 10 Mg PO TID Ativan (Lorazepam) 1 Mg Tablet 0.5 Mg PO PRN Q4HRS PRN Ativan (Lorazepam) 2 Mg/1 Ml Vial 0.25 Ml IM PRN Q4HRS PRN Levothyroxine Sodium 25 Mcg Tablet 25 Mcg PO DAILYAC Divalproex Sodium Er (Divalproex Sodium) 500 Mg Tab.er.24h 1,500 Mg PO QHS Divalproex Sodium Er (Divalproex Sodium) 500 Mg Tab.er.24h 750 Mg PO DAILY Thiamine Hcl 100 Mg Tablet 100 Mg PO DAILY Multivitamins (Multivitamin) 1 Each Tablet 1 Each PO NICODERM CQ 14mg (Nicotine) 1 Each Patch.td24 1 Patch TD DAILY Metoprolol Tartrate 25 Mg Tablet 25 Mg PO BID Fludrocortisone Acetate 0.1 Mg Tablet 0.1 Mg PO DAILY Clonidine Hcl 0.1 Mg Tablet 0.1 Mg PO QHS Aspirin 325 Mg Tablet 325 Mg PO DAILY I have reviewed the current psychotropics carefully including drug interactions. Risk benefit ratio favors no change other than as noted in my dictated progress note. 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
[2018-03-03 05:50] VITALS: BP 110/60
[2018-03-03] MEDS: LEVOTHYROXINE 25 MCG TABLET. PO SCH (06:36)
[2018-03-03] MEDS: DOCUSATE SODIUM 100 MG CAPSULE PO SCH (08:01)
[2018-03-03] MEDS: METOPROLOL TART IMMED RELEASE 25 MG TABLET PO SCH ×2 (08:01→19:49)
[2018-03-03] MEDS: DIVALPROEX 125 MG CAP.SPRINK PO SCH ×3 (08:01→19:48)
[2018-03-03] MEDS: SERTRALINE 50 MG TABLET. PO SCH (08:01)
[2018-03-03] MEDS: busPIRone 10 MG TABLET. PO SCH ×2 (08:01→17:18)
[2018-03-03] MEDS: ASPIRIN 325 MG TABLET PO SCH (08:01)
[2018-03-03] MEDS: FLUDROCORTISONE 0.1 MG TABLET PO SCH (08:02)
[2018-03-03] MEDS: risperiDONE 0.25 MG TABLET. PO SCH ×3 (08:02→17:18)
[2018-03-03] MEDS: THIAMINE 100 MG TABLET. PO SCH (08:02)
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
[2018-03-03 15:54] VITALS: BP 119/81
[2018-03-03] MEDS: MELATONIN 3 MG TABLET PO SCH (19:48)
[2018-03-03] MEDS: MIRTAZAPINE 15 MG TABLET PO SCH (19:49)
[2018-03-03] MEDS: cloNIDine HCL 0.1 MG TABLET PO SCH (19:49)
[2018-03-03] MEDS: traZODone 100 MG TABLET. PO SCH (19:50)
[2018-03-04 05:03] VITALS: BP 112/59
[2018-03-04] MEDS: LEVOTHYROXINE 25 MCG TABLET. PO SCH (05:24)
[2018-03-04] MEDS: FLUDROCORTISONE 0.1 MG TABLET PO SCH (08:59)
[2018-03-04] MEDS: risperiDONE 0.25 MG TABLET. PO SCH ×3 (08:59→17:30)
[2018-03-04] MEDS: THIAMINE 100 MG TABLET. PO SCH (09:00)
[2018-03-04] MEDS: METOPROLOL TART IMMED RELEASE 25 MG TABLET PO SCH ×2 (09:00→20:40)
[2018-03-04] MEDS: busPIRone 10 MG TABLET. PO SCH ×2 (09:00→17:30)
[2018-03-04] MEDS: ASPIRIN 325 MG TABLET PO SCH (09:00)
[2018-03-04] MEDS: SERTRALINE 50 MG TABLET. PO SCH (09:00)
[2018-03-04] MEDS: DIVALPROEX 125 MG CAP.SPRINK PO SCH ×3 (09:02→20:41)
[2018-03-04] MEDS: DOCUSATE SODIUM 100 MG CAPSULE PO SCH (09:02)
--- NOTE | 2018-03-04 13:36 | PN ---
DATE: 03/03/2018 SUBJECTIVE: The patient was seen today, met with the staff, chart reviewed. Also covering for Dr. Hopkins. Staff reports increased confusion. He is able to walk, but unsteady. No recent falls. The patient is constantly picking the skin to the point of bleeding. The patient continues to have visual hallucinations and difficult to redirect. PHYSICAL EXAMINATION: VITAL SIGNS: Temperature 98.2, blood pressure 110/60, pulse 61, respirations 18, O2 sat 99%. Slept about 6 hours last night. The patient's appetite is fair. MEDICATIONS: The patient's medications were reviewed. Currently on ____ 750 mg b.i.d. and 1000 mg daily, BuSpar 10 mg b.i.d, Risperdal 0.25 mg t.i.d., mirtazapine 15 mg at night, melatonin 3 mg at night, Zoloft 75 mg daily, aspirin 325 mg daily, trazodone 250 mg at night. The patient is not having any side effects. The patient's lab reviewed. ASSESSMENT: Major neurocognitive disorder, alcohol amnestic disorder. PLAN: To continue with current treatment. SERGIO HOLLINGSWORTH MD DR: RACHEL/leah JOB#: [id number] / [id number]
[2018-03-04 15:24] VITALS: BP 130/76
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
[2018-03-04] MEDS: MIRTAZAPINE 15 MG TABLET PO SCH (20:40)
[2018-03-04] MEDS: MELATONIN 3 MG TABLET PO SCH (20:40)
[2018-03-04] MEDS: cloNIDine HCL 0.1 MG TABLET PO SCH (20:40)
[2018-03-04] MEDS: traZODone 100 MG TABLET. PO SCH (20:41)
[2018-03-05 05:19] VITALS: BP 120/69
[2018-03-05] MEDS: LEVOTHYROXINE 25 MCG TABLET. PO SCH (05:22)
[2018-03-05 07:02] LABS: BASO # 0.1 x10^3/uL (0.0-0.2); BASO % 1 % (0-3); EOS # 0.7 x10^3/uL (0.0-0.7); EOS % 10 % (0-3); HEMOGLOBIN 11.4 g/dL (13.0-17.5); LYMPH # 2.3 x10^3/uL (1.0-4.8); LYMPH % 30 % (24-48); MEAN CORPUSCULAR HEMOGLOBIN 31 pg (25-35); MEAN CORPUSCULAR HGB CONC 34 g/dL (31-37); MEAN CORPUSCULAR VOLUME 93 fL (79-100); MONO # 1.1 x10^3/uL (0.0-1.1); MONO % 15 % (0-9); NEUT # 3.4 x10^3uL (1.8-7.7); NEUT % 45 % (31-73); PLATELET COUNT 207 x10^3/uL (140-400); RED BLOOD COUNT 3.66 x10^6/uL (4.30-5.70); RED CELL DISTRIBUTION WIDTH 14.1 % (11.5-14.5); WHITE BLOOD COUNT 7.6 x10^3/uL (4.0-11.0)
[2018-03-05 07:15] LABS: ANION GAP 7 (6-14); BLOOD UREA NITROGEN 34 mg/dL (8-26); CALCIUM 8.7 mg/dL (8.5-10.1); CARBON DIOXIDE 31 mmol/L (21-32); CHLORIDE 107 mmol/L (98-107); CREATININE 1.1 mg/dL (0.7-1.3); GFR 66.6; GLUCOSE 87 mg/dL (70-99); POTASSIUM 4.3 mmol/L (3.5-5.1); SODIUM 145 mmol/L (136-145); VAL ACID 51 mcg/mL (50-100)
[2018-03-05] MEDS: DOCUSATE SODIUM 100 MG CAPSULE PO SCH (07:38)
[2018-03-05] MEDS: THIAMINE 100 MG TABLET. PO SCH (07:38)
[2018-03-05] MEDS: ASPIRIN 325 MG TABLET PO SCH (07:38)
[2018-03-05] MEDS: SERTRALINE 50 MG TABLET. PO SCH (07:39)
[2018-03-05] MEDS: FLUDROCORTISONE 0.1 MG TABLET PO SCH (07:39)
[2018-03-05] MEDS: risperiDONE 0.25 MG TABLET. PO SCH ×3 (07:39→16:41)
[2018-03-05] MEDS: METOPROLOL TART IMMED RELEASE 25 MG TABLET PO SCH ×2 (07:39→19:36)
[2018-03-05] MEDS: busPIRone 10 MG TABLET. PO SCH ×2 (07:43→16:41)
[2018-03-05] MEDS: DIVALPROEX 125 MG CAP.SPRINK PO SCH ×3 (07:43→19:36)
--- NOTE | 2018-03-05 19:16 | PN ---
DATE: 03/05/2018 SUBJECTIVE: The patient was seen today, met with the staff, chart reviewed. The patient continues to have problems with behaviors and also constantly picking on his skin. The patient also constantly pacing. The patient needing assistance with ADLs. The patient also tends to become combative with staff. He does not interact with staff or residents, almost noncommunicative. OBJECTIVE: VITAL SIGNS: Temperature 97.1, blood pressure 120/69, pulse 68, respirations 16, O2 sat 98%. Slept about 6 hours last night. The patient's sleep fair. MEDICATIONS: The patient's current medications include Depakote, BuSpar, Risperdal, mirtazapine, melatonin, Zoloft, trazodone, and also p.r.n. olanzapine 2.5 mg q.2 hours p.r.n. The patient is not showing any side effects. The patient has no major medical issues at this point. The patient's lab reviewed. ASSESSMENT: 1. Major neurocognitive disorder. 2. Alcohol amnestic disorder. PLAN: To continue with the treatment. SERGIO HOLLINGSWORTH MD DR: RACHEL/leah JOB#: [id number] / [id number]
[2018-03-05] MEDS: MELATONIN 3 MG TABLET PO SCH (19:34)
[2018-03-05] MEDS: MIRTAZAPINE 15 MG TABLET PO SCH (19:35)
[2018-03-05] MEDS: traZODone 100 MG TABLET. PO SCH (19:35)
[2018-03-05] MEDS: cloNIDine HCL 0.1 MG TABLET PO SCH (19:36)
[2018-03-06 06:23] VITALS: BP 146/74
[2018-03-06] MEDS: THIAMINE 100 MG TABLET. PO SCH (08:45)
[2018-03-06] MEDS: busPIRone 10 MG TABLET. PO SCH ×2 (08:45→17:16)
[2018-03-06] MEDS: ASPIRIN 325 MG TABLET PO SCH (08:45)
[2018-03-06] MEDS: LEVOTHYROXINE 25 MCG TABLET. PO SCH (08:45)
[2018-03-06] MEDS: FLUDROCORTISONE 0.1 MG TABLET PO SCH (08:46)
[2018-03-06] MEDS: SERTRALINE 50 MG TABLET. PO SCH (08:46)
[2018-03-06] MEDS: risperiDONE 0.25 MG TABLET. PO SCH ×3 (08:46→17:18)
[2018-03-06] MEDS: DOCUSATE SODIUM 100 MG CAPSULE PO SCH (08:47)
[2018-03-06] MEDS: DIVALPROEX 125 MG CAP.SPRINK PO SCH ×3 (08:47→20:09)
[2018-03-06] MEDS: METOPROLOL TART IMMED RELEASE 25 MG TABLET PO SCH ×2 (08:47→20:15)
[2018-03-06 16:04] VITALS: BP 122/64
[2018-03-06] MEDS: traZODone 100 MG TABLET. PO SCH (20:10)
[2018-03-06] MEDS: MIRTAZAPINE 15 MG TABLET PO SCH (20:10)
[2018-03-06] MEDS: MELATONIN 3 MG TABLET PO SCH (20:10)
[2018-03-06] MEDS: cloNIDine HCL 0.1 MG TABLET PO SCH (20:15)
--- NOTE | 2018-03-07 00:05 | PN ---
DATE: 03/06/2018 SUBJECTIVE: The patient was seen today, met with the staff, chart reviewed. The patient gets agitated easily, constantly pacing, also episodes where he becomes combative with staff. The patient most of the time is noncommunicative. OBJECTIVE: VITAL SIGNS: Temperature 97.7, 146/74, pulse 59, respirations 18, O2 sat 96%. Slept about 7 hours last night. LABORATORY DATA: The patient's lab reviewed. MEDICATIONS: The patient's current medications include Depakote, BuSpar, Risperdal, mirtazapine, Zoloft. The patient is also on trazodone, melatonin, and p.r.n. olanzapine. The patient denies of any side effects. ASSESSMENT: 1. Major neurocognitive disorder, most likely Alzheimer's with behavior problems. 2. Alcohol amnestic disorder. PLAN: To continue with the treatment. SERGIO HOLLINGSWORTH MD DR: RACHEL/leah JOB#: [id number] / [id number]
[2018-03-07 05:18] VITALS: BP 136/70
[2018-03-07] MEDS: LEVOTHYROXINE 25 MCG TABLET. PO SCH (05:50)
[2018-03-07] MEDS: DOCUSATE SODIUM 100 MG CAPSULE PO SCH (08:06)
[2018-03-07] MEDS: risperiDONE 0.25 MG TABLET. PO SCH ×3 (08:06→17:04)
[2018-03-07] MEDS: busPIRone 10 MG TABLET. PO SCH ×2 (08:06→17:04)
[2018-03-07] MEDS: DIVALPROEX 125 MG CAP.SPRINK PO SCH ×3 (08:06→19:56)
[2018-03-07] MEDS: ASPIRIN 325 MG TABLET PO SCH (08:06)
[2018-03-07] MEDS: SERTRALINE 50 MG TABLET. PO SCH (08:07)
[2018-03-07] MEDS: THIAMINE 100 MG TABLET. PO SCH (08:07)
[2018-03-07] MEDS: FLUDROCORTISONE 0.1 MG TABLET PO SCH (08:08)
[2018-03-07] MEDS: METOPROLOL TART IMMED RELEASE 25 MG TABLET PO SCH ×2 (08:08→19:54)
[2018-03-07 15:56] VITALS: BP 120/64
[2018-03-07] MEDS: traZODone 100 MG TABLET. PO SCH (19:52)
[2018-03-07] MEDS: MELATONIN 3 MG TABLET PO SCH (19:53)
[2018-03-07] MEDS: MIRTAZAPINE 15 MG TABLET PO SCH (19:53)
[2018-03-07] MEDS: cloNIDine HCL 0.1 MG TABLET PO SCH (19:53)
--- NOTE | 2018-03-08 00:02 | PN ---
DATE: 03/07/2018 SUBJECTIVE: The patient was seen today, met with the staff, chart reviewed. The patient is not presenting with any major behavior problems. The patient still has episodes of agitation, confusion, pacing constantly. The patient is constantly picking his skin to the point of bleeding. OBJECTIVE: VITAL SIGNS: Temperature 97.2, blood pressure 136/70, pulse 59, respirations 18, O2 sat 99%. Slept about 5 hours last night. GENERAL: The patient is indifferent, does not communicate, but makes eye contact. The patient has occasional outbursts, angry, become physical. MEDICATIONS: The patient continues to be on Depakote, BuSpar, Risperdal, mirtazapine, Zoloft. The patient is also on trazodone and melatonin. He is not having any side effects. The patient walks with short step gait, but no falls. ASSESSMENT: 1. Major neurocognitive disorder, most likely Alzheimer's with behavior problems. 2. Alcohol amnestic disorder. PLAN: To continue with the treatment. SERGIO HOLLINGSWORTH MD DR: RACHEL/leah JOB#: [id number] / [id number]
[2018-03-08 05:26] VITALS: BP 143/71
[2018-03-08] MEDS: LEVOTHYROXINE 25 MCG TABLET. PO SCH (05:46)
[2018-03-08] MEDS: ASPIRIN 325 MG TABLET PO SCH (08:37)
[2018-03-08] MEDS: DIVALPROEX 125 MG CAP.SPRINK PO SCH ×3 (08:38→21:00)
[2018-03-08] MEDS: SERTRALINE 50 MG TABLET. PO SCH (08:38)
[2018-03-08] MEDS: risperiDONE 0.25 MG TABLET. PO SCH ×3 (08:38→17:33)
[2018-03-08] MEDS: METOPROLOL TART IMMED RELEASE 25 MG TABLET PO SCH ×2 (08:39→20:12)
[2018-03-08] MEDS: FLUDROCORTISONE 0.1 MG TABLET PO SCH (08:39)
[2018-03-08] MEDS: THIAMINE 100 MG TABLET. PO SCH (08:39)
[2018-03-08] MEDS: busPIRone 10 MG TABLET. PO SCH ×2 (08:39→17:33)
[2018-03-08] MEDS: DOCUSATE SODIUM 100 MG CAPSULE PO SCH (08:39)
[2018-03-08 16:06] VITALS: BP 123/59
[2018-03-08] MEDS: cloNIDine HCL 0.1 MG TABLET PO SCH (20:11)
[2018-03-08] MEDS: MELATONIN 3 MG TABLET PO SCH (20:12)
[2018-03-08] MEDS: traZODone 100 MG TABLET. PO SCH (20:12)
[2018-03-08] MEDS: MIRTAZAPINE 15 MG TABLET PO SCH (21:00)
--- NOTE | 2018-03-08 21:13 | PN ---
DATE: 03/08/2018 The patient continues to have periods of agitation, confusion, pacing constantly. He is constantly picking his skin to the point of bleeding. The patient constantly pacing, avoids people, also unprovoked behaviors including hitting residents and staff. OBJECTIVE: VITAL SIGNS: Temperature 97.6, blood pressure 143/71, pulse 53, respiration 18, O2 sat 97%. The patient slept about 8 hours last night. CURRENT MEDICATIONS: The patient's current medications include Depakote, BuSpar, Risperdal, mirtazapine and Zoloft. The patient also on trazodone and melatonin for sleep. The patient denies of any side effects. ASSESSMENT: Major neurocognitive disorder, most likely Alzheimer's with behavior problems. Rule out alcohol amnestic disorder. PLAN: To continue with the treatment. SERGIO HOLLINGSWORTH MD DR: RACHEL/leah JOB#: [id number] / [id number]
[2018-03-09] MEDS: LEVOTHYROXINE 25 MCG TABLET. PO SCH (05:02)
[2018-03-09 05:46] VITALS: BP 155/83
[2018-03-09] MEDS: DOCUSATE SODIUM 100 MG CAPSULE PO SCH (08:02)
[2018-03-09] MEDS: ASPIRIN 325 MG TABLET PO SCH (08:02)
[2018-03-09] MEDS: METOPROLOL TART IMMED RELEASE 25 MG TABLET PO SCH ×2 (08:03→20:02)
[2018-03-09] MEDS: SERTRALINE 50 MG TABLET. PO SCH (08:03)
[2018-03-09] MEDS: THIAMINE 100 MG TABLET. PO SCH (08:03)
[2018-03-09] MEDS: risperiDONE 0.25 MG TABLET. PO SCH ×3 (08:03→16:56)
[2018-03-09] MEDS: FLUDROCORTISONE 0.1 MG TABLET PO SCH (08:03)
[2018-03-09] MEDS: DIVALPROEX 125 MG CAP.SPRINK PO SCH ×3 (08:04→20:02)
[2018-03-09] MEDS: busPIRone 10 MG TABLET. PO SCH ×2 (08:04→16:56)
[2018-03-09 15:48] VITALS: BP 104/71
[2018-03-09] MEDS: traZODone 100 MG TABLET. PO SCH (20:03)
[2018-03-09] MEDS: cloNIDine HCL 0.1 MG TABLET PO SCH (20:03)
[2018-03-09] MEDS: MIRTAZAPINE 15 MG TABLET PO SCH (20:04)
[2018-03-09] MEDS: MELATONIN 3 MG TABLET PO SCH (20:04)
--- NOTE | 2018-03-09 20:43 | PN ---
DATE: 03/09/2018 SUBJECTIVE: The patient was seen today, met with the staff, chart reviewed. The patient continued to show increased agitation, pacing constantly, indifferent to surroundings, and not exhibiting any major behavior problems. The patient continues to pick on the skin to the point of bleeding. They tried several ways to stop him, but usually removes the mittens and also try to files his nails. The patient is not having any other medical issues. MEDICATIONS: The patient's medications reviewed, currently on Depakote, BuSpar, Risperdal, mirtazapine, and Zoloft. The patient is also on trazodone and melatonin for sleep p.r.n. The patient is not having any side effects to the medications. ASSESSMENT: Major neurocognitive disorder, most likely Alzheimer's with behavior problems. PLAN: To continue with the treatment. SERGIO HOLLINGSWORTH MD DR: RACHEL/leah JOB#: [id number] / [id number]
[2018-03-10 05:31] VITALS: BP 154/74
[2018-03-10] MEDS: LEVOTHYROXINE 25 MCG TABLET. PO SCH (06:30)
[2018-03-10] MEDS: DIVALPROEX 125 MG CAP.SPRINK PO SCH ×3 (07:45→19:55)
[2018-03-10] MEDS: busPIRone 10 MG TABLET. PO SCH ×2 (07:45→18:48)
[2018-03-10] MEDS: ASPIRIN 325 MG TABLET PO SCH (07:45)
[2018-03-10] MEDS: SERTRALINE 50 MG TABLET. PO SCH (07:46)
[2018-03-10] MEDS: THIAMINE 100 MG TABLET. PO SCH (07:46)
[2018-03-10] MEDS: risperiDONE 0.25 MG TABLET. PO SCH ×3 (07:46→18:48)
[2018-03-10] MEDS: FLUDROCORTISONE 0.1 MG TABLET PO SCH (07:46)
[2018-03-10] MEDS: METOPROLOL TART IMMED RELEASE 25 MG TABLET PO SCH ×2 (07:46→19:56)
[2018-03-10] MEDS: DOCUSATE SODIUM 100 MG CAPSULE PO SCH (07:46)
[2018-03-10 15:19] VITALS: BP 128/84
--- NOTE | 2018-03-10 18:01 | PN ---
DATE: 03/10/2018 SUBJECTIVE: The patient was seen today, met with the staff, chart reviewed. The patient apparently has not presented with any major problems today. The patient continues to pick on his skin. The patient's affect has improved, still tend to wander, significant cognitive deficits. MEDICATIONS: The patient's medication reviewed. Currently on Depakote, BuSpar, Risperdal, mirtazapine and Zoloft and not having any side effects, no major medical issues. ASSESSMENT: Major neurocognitive disorder, most likely Alzheimer's with behavior problems. PLAN: To continue with the treatment. SERGIO HOLLINGSWORTH MD DR: RACHEL/leah JOB#: [id number] / [id number]
[2018-03-10] MEDS: MIRTAZAPINE 15 MG TABLET PO SCH (19:55)
[2018-03-10] MEDS: cloNIDine HCL 0.1 MG TABLET PO SCH (19:56)
[2018-03-10] MEDS: MELATONIN 3 MG TABLET PO SCH (19:56)
[2018-03-10] MEDS: traZODone 100 MG TABLET. PO SCH (19:58)
[2018-03-11] MEDS: LEVOTHYROXINE 25 MCG TABLET. PO SCH (05:38)
[2018-03-11 05:43] VITALS: BP 123/63
[2018-03-11] MEDS: THIAMINE 100 MG TABLET. PO SCH (07:45)
[2018-03-11] MEDS: ASPIRIN 325 MG TABLET PO SCH (07:45)
[2018-03-11] MEDS: DOCUSATE SODIUM 100 MG CAPSULE PO SCH (07:45)
[2018-03-11] MEDS: FLUDROCORTISONE 0.1 MG TABLET PO SCH (07:45)
[2018-03-11] MEDS: busPIRone 10 MG TABLET. PO SCH ×2 (07:45→17:00)
[2018-03-11] MEDS: risperiDONE 0.25 MG TABLET. PO SCH ×3 (07:45→17:00)
[2018-03-11] MEDS: SERTRALINE 50 MG TABLET. PO SCH (07:45)
[2018-03-11] MEDS: METOPROLOL TART IMMED RELEASE 25 MG TABLET PO SCH ×2 (07:45→19:41)
[2018-03-11] MEDS: DIVALPROEX 125 MG CAP.SPRINK PO SCH ×3 (07:46→19:39)
[2018-03-11 12:27] LABS: BASO # 0.1 x10^3/uL (0.0-0.2); BASO % 1 % (0-3); EOS # 0.8 x10^3/uL (0.0-0.7); EOS % 10 % (0-3); HEMATOCRIT 36.9 % (39.0-53.0); HEMOGLOBIN 12.2 g/dL (13.0-17.5); LYMPH # 1.9 x10^3/uL (1.0-4.8); LYMPH % 25 % (24-48); MEAN CORPUSCULAR HEMOGLOBIN 31 pg (25-35); MEAN CORPUSCULAR HGB CONC 33 g/dL (31-37); MEAN CORPUSCULAR VOLUME 94 fL (79-100); MONO # 0.9 x10^3/uL (0.0-1.1); MONO % 12 % (0-9); NEUT # 4.1 x10^3uL (1.8-7.7); NEUT % 53 % (31-73); PLATELET COUNT 243 x10^3/uL (140-400); RED BLOOD COUNT 3.94 x10^6/uL (4.30-5.70); RED CELL DISTRIBUTION WIDTH 14.7 % (11.5-14.5); WHITE BLOOD COUNT 7.7 x10^3/uL (4.0-11.0)
[2018-03-11 12:50] LABS: ALBUMIN 3.2 g/dL (3.4-5.0); ALBUMIN/GLOBULIN RATIO 0.9 (1.0-1.7); CALCIUM 8.8 mg/dL (8.5-10.1); CREATININE 1.1 mg/dL (0.7-1.3); GFR 66.6; POTASSIUM 4.1 mmol/L (3.5-5.1); TOTAL BILIRUBIN 0.2 mg/dL (0.2-1.0); TOTAL PROTEIN 6.8 g/dL (6.4-8.2)
[2018-03-11 16:04] VITALS: BP 112/66
[2018-03-11] MEDS: traZODone 100 MG TABLET. PO SCH (19:40)
[2018-03-11] MEDS: MELATONIN 3 MG TABLET PO SCH (19:40)
[2018-03-11] MEDS: cloNIDine HCL 0.1 MG TABLET PO SCH (19:40)
[2018-03-11] MEDS: MIRTAZAPINE 15 MG TABLET PO SCH (19:40)
[2018-03-12 05:39] VITALS: BP 118/66
[2018-03-12] MEDS: LEVOTHYROXINE 25 MCG TABLET. PO SCH (06:06)
[2018-03-12] MEDS: SERTRALINE 50 MG TABLET. PO SCH (07:26)
[2018-03-12] MEDS: DOCUSATE SODIUM 100 MG CAPSULE PO SCH (07:27)
[2018-03-12] MEDS: FLUDROCORTISONE 0.1 MG TABLET PO SCH (07:27)
[2018-03-12] MEDS: ASPIRIN 325 MG TABLET PO SCH (07:27)
[2018-03-12] MEDS: busPIRone 10 MG TABLET. PO SCH ×2 (07:27→17:13)
[2018-03-12] MEDS: METOPROLOL TART IMMED RELEASE 25 MG TABLET PO SCH ×2 (07:27→17:16)
[2018-03-12] MEDS: THIAMINE 100 MG TABLET. PO SCH (07:27)
[2018-03-12] MEDS: risperiDONE 0.25 MG TABLET. PO SCH ×3 (07:27→17:13)
[2018-03-12] MEDS: DIVALPROEX 125 MG CAP.SPRINK PO SCH ×3 (07:28→17:15)
--- NOTE | 2018-03-12 12:00 | PN ---
DATE: 03/12/2018 SUBJECTIVE: The patient was seen today, met with the staff, chart reviewed. The patient continues to wander, pacing, indifferent to surroundings, also resistive to care. Staff denies of any falls. OBSERVATION: VITAL SIGNS: Temperature 98.5, blood pressure 118/66, pulse 55, respirations 20, O2 sat 94%. Slept about 7 hours last night. The patient's appetite improved. MEDICATIONS: Reviewed. Currently on Depakote, BuSpar, Risperdal, mirtazapine and Zoloft. No major side effects. LABORATORY DATA: Reviewed. ASSESSMENT: Major neurocognitive disorder, most likely Alzheimer's with behavior problems. PLAN: Continue with the treatment. We will explore placement options. SERGIO HOLLINGSWORTH MD DR: RACHEL/leah JOB#: [id number] / [id number]
[2018-03-12] MEDS: MELATONIN 3 MG TABLET PO SCH (17:15)
[2018-03-12] MEDS: cloNIDine HCL 0.1 MG TABLET PO SCH (17:15)
[2018-03-12] MEDS: MIRTAZAPINE 15 MG TABLET PO SCH (17:15)
[2018-03-12] MEDS: traZODone 100 MG TABLET. PO SCH (17:16)
[2018-03-13] MEDS: LEVOTHYROXINE 25 MCG TABLET. PO SCH (05:47)
[2018-03-13 06:43] VITALS: BP 129/68
[2018-03-13 07:08] LABS: ALBUMIN/GLOBULIN RATIO 0.8 (1.0-1.7); CALCIUM 8.6 mg/dL (8.5-10.1); CREATININE 1.1 mg/dL (0.7-1.3); GFR 66.6; POTASSIUM 4.2 mmol/L (3.5-5.1); TOTAL BILIRUBIN 0.2 mg/dL (0.2-1.0); TOTAL PROTEIN 6.6 g/dL (6.4-8.2)
[2018-03-13] MEDS: DIVALPROEX 125 MG CAP.SPRINK PO SCH ×3 (07:39→20:14)
[2018-03-13] MEDS: busPIRone 10 MG TABLET. PO SCH ×3 (07:39→20:13)
[2018-03-13] MEDS: DOCUSATE SODIUM 100 MG CAPSULE PO SCH (07:39)
[2018-03-13] MEDS: SERTRALINE 50 MG TABLET. PO SCH (07:39)
[2018-03-13] MEDS: risperiDONE 0.25 MG TABLET. PO SCH ×3 (07:40→17:31)
[2018-03-13] MEDS: THIAMINE 100 MG TABLET. PO SCH (07:40)
[2018-03-13] MEDS: ASPIRIN 325 MG TABLET PO SCH (07:40)
[2018-03-13] MEDS: FLUDROCORTISONE 0.1 MG TABLET PO SCH (07:44)
[2018-03-13] MEDS: METOPROLOL TART IMMED RELEASE 25 MG TABLET PO SCH ×2 (08:00→20:13)
[2018-03-13 16:04] VITALS: BP 122/72
--- NOTE | 2018-03-13 18:54 | PDOC ---
Exam Note: Dionic[facility] Note: Please also refer to the separate dictated note~for this date of service dictated separately.~Patient seen individually. Discussed the patient with Nursing staff reviewed the chart.~Reviewed interim history and current functioning. Reviewed vital signs,~Labs/ Radiology~and current medications noted below. Continue current treatment with the changes noted in the dictated addendum note Assessment: Vital Signs: Vital Signs Date Time Temp Pulse Resp B/P (MAP) Pulse Ox O2 Delivery O2 Flow Rate FiO2 03/13/18 16:04 97.6 90 18 122/72 (89) 96 03/12/18 05:39 Room Air I&O Intake and Output 03/13/18 07:00 Intake Total 600 ml Balance 600 ml Intake Oral 600 ml # Voids 1 Labs: Laboratory Tests Test 03/13/18 06:47 Sodium Level 142 mmol/L (136-145) Potassium Level 4.2 mmol/L (3.5-5.1) Chloride Level 105 mmol/L (98-107) Carbon Dioxide Level 31 mmol/L (21-32) Anion Gap 6 (6-14) Blood Urea Nitrogen 27 mg/dL (8-26) H Creatinine 1.1 mg/dL (0.7-1.3) Estimated GFR (Cockcroft-Gault) 66.6 BUN/Creatinine Ratio 25 (6-20) H Glucose Level 96 mg/dL (70-99) Calcium Level 8.6 mg/dL (8.5-10.1) Total Bilirubin 0.2 mg/dL (0.2-1.0) Aspartate Amino Transferase (AST) 15 U/L (15-37) Alanine Aminotransferase (ALT) 16 U/L (16-63) Alkaline Phosphatase 63 U/L (46-116) Total Protein 6.6 g/dL (6.4-8.2) Albumin 3.0 g/dL (3.4-5.0) L Albumin/Globulin Ratio 0.8 (1.0-1.7) L Current Medications: Meds: Current Medications Acetaminophen (Tylenol) 650 mg PRN Q6HRS PRN PO PAIN / TEMP Last administered on 02/26/18at 10:29; Start 02/01/18 at 12:15 Multi-Ingredient Ointment (Analgesic [place]) 1 king PRN QID PRN TP MUSCLE PAIN; Start 02/01/18 at 12:15 Al Hydroxide/Mg Hydroxide (Mylanta Plus Xs) 15 ml PRN AFTMEALHC PRN PO DYSPEPSIA; Start 02/01/18 at 12:15 Magnesium Hydroxide (Milk Of Magnesia) 2,400 mg PRN QHS PRN PO CONSTIPATION Last administered on 02/13/18 21:08; Start 02/01/18 at 12:15 Influenza Virus Vaccine (Afluria Trivalent [id number] Syringe) 0.5 ml ONCE ONCE VAX IM Last administered on 02/02/18at 10:11; Start 02/02/18 at 09:00; Stop 02/02/18 at 09:01; Status DC Aspirin (Davi Aspirin) 325 mg DAILY PO Last administered on 03/13/18at 07:40; Start 02/02/18 at 09:00 Clonidine HCl (Catapres) 0.1 mg QHS PO Last administered on 03/12/18at 17:15; Start 02/01/18 at 21:00 Fludrocortisone Acetate (Florinef) 0.1 mg DAILY PO Last administered on at 07:44; Start 02/02/18 at 09:00 Lorazepam (Ativan) 0.5 mg PRN Q4HRS PRN PO ANXIETY / AGITATION Last administered on 02/02/18at 21:32; Start 02/01/18 at 13:30; Stop 02/06/18 at 18 :59; Status DC Metoprolol Tartrate (Lopressor) 25 mg BID PO Last administered on 03/12/18at 07 :27; Start 02/01/18 at 21:00; Stop 03/12/18 at 15:43; Status DC Divalproex Sodium (Depakote Er) 1,500 mg QHS PO Last administered on at 20:16; Start 02/01/18 at 21:00; Stop 02/02/18 at 18:01; Status DC Divalproex Sodium (Depakote Er) 750 mg DAILY PO Last administered on at 09:02; Start 02/02/18 at 09:00; Stop 02/02/18 at 18:01; Status DC Docusate Sodium (Colace) 100 mg DAILY PO Last administered on 03/13/18at 07:39 ; Start 02/02/18 at 09:00 Levothyroxine Sodium (Synthroid) 25 mcg DAILY06 PO Last administered on at 05:47; Start 02/02/18 at 06:00 Loxapine Succinate (Loxitane) 10 mg TID PO Last administered on 02/02/18at 08: 58; Start 02/01/18 at 14:00; Stop 02/02/18 at 11:12; Status DC Nicotine (Nicoderm Cq 14mg) 1 patch DAILY TD ; Start 02/02/18 at 09:00; Stop 02/02/18 at 18:01; Status DC Thiamine HCl (Vitamin B-1) 100 mg DAILY PO Last administered on 03/13/18at 07: 40; Start 02/02/18 at 09:00 Trazodone HCl (Desyrel) 250 mg QHS PO Last administered on 03/12/18at 17:16; Start 02/01/18 at 21:00 Loxapine Succinate (Loxitane) 10 mg BID PO Last administered on 02/03/18at 19: 24; Start 02/02/18 at 21:00; Stop 02/04/18 at 08:00; Status DC Sertraline HCl (Zoloft) 50 mg DAILY PO Last administered on 02/06/18at 07:26; Start 02/03/18 at 09:00; Stop 02/06/18 at 17:54; Status DC Divalproex Sodium (Depakote Sprinkles) 750 mg TID@0900,1300,2100 PO Last administered on 03/01/18at 12:42; Start 02/02/18 at 21:00; Stop 03/01/18 at 17 :09; Status DC Sertraline HCl (Zoloft) 75 mg DAILY PO Last administered on 03/13/18at 07:39; Start 02/07/18 at 09:00 Olanzapine (ZyPREXA ZYDIS) 2.5 mg PRN Q2HR PRN PO PSYCHOSIS/AGITATION Last administered on 03/06/18at 23:28; Start 02/08/18 at 17:15 Quetiapine Fumarate (SEROquel) 12.5 mg DAILY@0900,1700 PO Last administered on 02/10/18at 17:06; Start 02/09/18 at 17:00; Stop 02/10/18 at 17:26; Status DC Quetiapine Fumarate (SEROquel) 12.5 mg TID@0900,1300,1700 PO Last administered on 02/11/18at 17:28; Start 02/11/18 at 09:00; Stop 02/11/18 at 19:01; Status DC Quetiapine Fumarate (SEROquel) 25 mg TID@0900,1300,1700 PO Last administered on 02/13/18at 13:18; Start 02/12/18 at 09:00; Stop 02/13/18 at 16:58; Status DC Quetiapine Fumarate (SEROquel) 37.5 mg TID@0900,1300,1700 PO Last administered on 02/20/18at 12:42; Start 02/13/18 at 17:00; Stop 02/20/18 at 16:36; Status DC Mirtazapine (Remeron) 7.5 mg QHS PO Last administered on 02/22/18at 21:23; Start 02/16/18 at 21:00; Stop 02/23/18 at 12:05; Status DC Quetiapine Fumarate (SEROquel) 50 mg TID@0900,1300,1700 PO Last administered on 02/25/18at 17:24; Start 02/20/18 at 17:00; Stop 02/25/18 at 17:43; Status DC Melatonin 3 mg HS PO Last administered on 03/12/18at 17:15; Start 02/21/18 at 21:00 Mirtazapine (Remeron) 15 mg QHS PO Last administered on 03/12/18at 17:15; Start 02/23/18 at 21:00 Buspirone HCl (Buspar) 5 mg DAILY@0900,1700 PO Last administered on 02/28/18at 08:28; Start 02/23/18 at 17:00; Stop 02/28/18 at 17:07; Status DC Risperidone (RisperDAL) 0.25 mg TID@0900,1300,1700 PO Last administered on at 17:31; Start 02/26/18 at 09:00 Clindamycin HCl (Cleocin) 300 mg Q6HRS PO Last administered on 02/26/18at 17:55 ; Start 02/26/18 at 12:00; Stop 02/26/18 at 22:35; Status DC Lactobacillus Rhamnosus (Culturelle) 1 cap BID PO Last administered on at 20:37; Start 02/26/18 at 12:00; Stop 03/02/18 at 01:27; Status DC Clindamycin HCl (Cleocin) 300 mg Q6HRS PO Last administered on 03/01/18at 12:42 ; Start 02/27/18 at 00:00; Stop 03/01/18 at 16:32; Status DC Buspirone HCl (Buspar) 10 mg DAILY@0900,1700 PO Last administered on at 17:31; Start 03/01/18 at 09:00; Stop 03/13/18 at 18:31; Status DC Divalproex Sodium (Depakote Sprinkles) 750 mg BID@1300,2100 PO Last administered on 03/13/18at 12:37; Start 03/01/18 at 21:00 Divalproex Sodium (Depakote Sprinkles) 1,000 mg DAILY PO Last administered on 03/13/18at 07:39; Start 03/02/18 at 09:00 Metoprolol Tartrate (Lopressor) 12.5 mg BID PO Last administered on 03/13/18at 08:00; Start 03/12/18 at 21:00 Buspirone HCl (Buspar) 10 mg QID PO ; Start 03/13/18 at 21:00 Active Scripts Active Reported Clonidine Hcl 0.1 Mg Tablet 0.1 Mg PO HS Buspirone Hcl 10 Mg Tablet 10 Mg PO [id number] Melatonin 3 Mg Tab.rapdis 3 Mg PO HS Depakote Sprinkle (Divalproex Sodium) 125 Mg Cap.sprink 1,000 Mg PO DAILY Risperdal (Risperidone) 0.25 Mg Tablet 0.25 Mg PO DAILY@0900,1300,1700 Depakote Sprinkle (Divalproex Sodium) 125 Mg Cap.sprink 750 Mg PO [id number] Tylenol (Acetaminophen) 325 Mg Tablet 650 Mg PO PRN Q6HRS PRN Bengay Ultra Strength Crm (Methyl Salicylate/Menth/Camph) 57 Gm Cream..g. 57 Gm TP PRN QID PRN Mag-Al Plus Suspension (Mag Hydrox/Al Hydrox/Simeth) 30 Ml Oral.susp 15 Ml PO PRN QID PRN Milk Of Magnesia (Magnesium Hydroxide) 2,400 Mg/10 Ml Oral.susp 2,400 Mg PO PRN QHS PRN Zyprexa Zydis (Olanzapine) 5 Mg Tab.rapdis 2.5 Mg PO PRN Q2HR PRN Seroquel (Quetiapine Fumarate) 25 Mg Tablet 37.5 Mg PO TIDAFTMEAL Zoloft (Sertraline Hcl) 50 Mg Tablet 75 Mg PO DAILY Remeron (Mirtazapine) 15 Mg Tablet 7.5 Mg PO HS Haldol (Haloperidol Lactate) 5 Mg/1 Ml Ampul 5 Mg IM PRN Q6HRS PRN Docusate Sodium 100 Mg Capsule 100 Mg PO DAILY Trazodone Hcl 100 Mg Tablet 250 Mg PO QHS Loxapine (Loxapine Succinate) 10 Mg Capsule 10 Mg PO TID Ativan (Lorazepam) 1 Mg Tablet 0.5 Mg PO PRN Q4HRS PRN Ativan (Lorazepam) 2 Mg/1 Ml Vial 0.25 Ml IM PRN Q4HRS PRN Levothyroxine Sodium 25 Mcg Tablet 25 Mcg PO DAILYAC Divalproex Sodium Er (Divalproex Sodium) 500 Mg Tab.er.24h 1,500 Mg PO QHS Divalproex Sodium Er (Divalproex Sodium) 500 Mg Tab.er.24h 750 Mg PO DAILY Thiamine Hcl 100 Mg Tablet 100 Mg PO DAILY Multivitamins (Multivitamin) 1 Each Tablet 1 Each PO NICODERM CQ 14mg (Nicotine) 1 Each Patch.td24 1 Patch TD DAILY Metoprolol Tartrate 25 Mg Tablet 25 Mg PO BID Fludrocortisone Acetate 0.1 Mg Tablet 0.1 Mg PO DAILY Clonidine Hcl 0.1 Mg Tablet 0.1 Mg PO QHS Aspirin 325 Mg Tablet 325 Mg PO DAILY I have reviewed the current psychotropics carefully including drug interactions. Risk benefit ratio favors no change other than as noted in my dictated progress note. 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
[2018-03-13] MEDS: cloNIDine HCL 0.1 MG TABLET PO SCH (20:12)
[2018-03-13] MEDS: MIRTAZAPINE 15 MG TABLET PO SCH (20:14)
[2018-03-13] MEDS: MELATONIN 3 MG TABLET PO SCH (20:14)
[2018-03-13] MEDS: traZODone 100 MG TABLET. PO SCH (20:14)
[2018-03-14] MEDS: LEVOTHYROXINE 25 MCG TABLET. PO SCH (05:39)
[2018-03-14 05:46] VITALS: BP 134/63
[2018-03-14] MEDS: ASPIRIN 325 MG TABLET PO SCH (11:32)
[2018-03-14] MEDS: DOCUSATE SODIUM 100 MG CAPSULE PO SCH (11:32)
[2018-03-14] MEDS: DIVALPROEX 125 MG CAP.SPRINK PO SCH ×3 (11:32→19:45)
[2018-03-14] MEDS: FLUDROCORTISONE 0.1 MG TABLET PO SCH (11:33)
[2018-03-14] MEDS: risperiDONE 0.25 MG TABLET. PO SCH ×3 (11:33→16:47)
[2018-03-14] MEDS: METOPROLOL TART IMMED RELEASE 25 MG TABLET PO SCH ×2 (11:33→19:44)
[2018-03-14] MEDS: THIAMINE 100 MG TABLET. PO SCH (11:33)
[2018-03-14] MEDS: SERTRALINE 50 MG TABLET. PO SCH (11:33)
[2018-03-14] MEDS: busPIRone 10 MG TABLET. PO SCH ×4 (11:34→19:45)
[2018-03-14 15:38] VITALS: BP 132/75
--- NOTE | 2018-03-14 18:51 | PDOC ---
Exam Note: [facility] Note: Please also refer to the separate dictated note~for this date of service dictated separately.~Patient seen individually. Discussed the patient with Nursing staff reviewed the chart.~Reviewed interim history and current functioning. Reviewed vital signs,~Labs/ Radiology~and current medications noted below. Continue current treatment with the changes noted in the dictated addendum note Assessment: Vital Signs: Vital Signs Date Time Temp Pulse Resp B/P (MAP) Pulse Ox O2 Delivery O2 Flow Rate FiO2 03/14/18 15:38 97.2 64 17 132/75 (94) 94 Room Air I&O Intake and Output 03/14/18 07:00 Intake Total 960 ml Balance 960 ml Intake Oral 960 ml # Voids 1 Current Medications: Meds: Current Medications Acetaminophen (Tylenol) 650 mg PRN Q6HRS PRN PO PAIN / TEMP Last administered on 02/26/18at 10:29; Start 02/01/18 at 12:15 Multi-Ingredient Ointment (Analgesic [place]) 1 king PRN QID PRN TP MUSCLE PAIN; Start 02/01/18 at 12:15 Al Hydroxide/Mg Hydroxide (Mylanta Plus Xs) 15 ml PRN AFTMEALHC PRN PO DYSPEPSIA; Start 02/01/18 at 12:15 Magnesium Hydroxide (Milk Of Magnesia) 2,400 mg PRN QHS PRN PO CONSTIPATION Last administered on 02/13/18at 21:08; Start 02/01/18 at 12:15 Influenza Virus Vaccine (Afluria Trivalent [id number] Syringe) 0.5 ml ONCE ONCE VAX IM Last administered on 02/02/18at 10:11; Start 02/02/18 at 09:00; Stop 02/02/18 at 09:01; Status DC Aspirin (Davi Aspirin) 325 mg DAILY PO Last administered on 03/14/18at 11:32; Start 02/02/18 at 09:00 Clonidine HCl (Catapres) 0.1 mg QHS PO Last administered on 03/13/18at 20:12; Start 02/01/18 at 21:00 Fludrocortisone Acetate (Florinef) 0.1 mg DAILY PO Last administered on at 11:33; Start 02/02/18 at 09:00 Lorazepam (Ativan) 0.5 mg PRN Q4HRS PRN PO ANXIETY / AGITATION Last administered on 02/02/18at 21:32; Start 02/01/18 at 13:30; Stop 02/06/18 at 18 :59; Status DC Metoprolol Tartrate (Lopressor) 25 mg BID PO Last administered on 03/12/18at 07 :27; Start 02/01/18 at 21:00; Stop 03/12/18 at 15:43; Status DC Divalproex Sodium (Depakote Er) 1,500 mg QHS PO Last administered on at 20:16; Start 02/01/18 at 21:00; Stop 02/02/18 at 18:01; Status DC Divalproex Sodium (Depakote Er) 750 mg DAILY PO Last administered on at 09:02; Start 02/02/18 at 09:00; Stop 02/02/18 at 18:01; Status DC Docusate Sodium (Colace) 100 mg DAILY PO Last administered on 03/14/18at 11:32 ; Start 02/02/18 at 09:00 Levothyroxine Sodium (Synthroid) 25 mcg DAILY06 PO Last administered on at 05:39; Start 02/02/18 at 06:00 Loxapine Succinate (Loxitane) 10 mg TID PO Last administered on 02/02/18at 08: 58; Start 02/01/18 at 14:00; Stop 02/02/18 at 11:12; Status DC Nicotine (Nicoderm Cq 14mg) 1 patch DAILY TD ; Start 02/02/18 at 09:00; Stop 02/02/18 at 18:01; Status DC Thiamine HCl (Vitamin B-1) 100 mg DAILY PO Last administered on 03/14/18at 11: 33; Start 02/02/18 at 09:00 Trazodone HCl (Desyrel) 250 mg QHS PO Last administered on 03/13/18at 20:14; Start 02/01/18 at 21:00 Loxapine Succinate (Loxitane) 10 mg BID PO Last administered on 02/03/18at 19: 24; Start 02/02/18 at 21:00; Stop 02/04/18 at 08:00; Status DC Sertraline HCl (Zoloft) 50 mg DAILY PO Last administered on 02/06/18at 07:26; Start 02/03/18 at 09:00; Stop 02/06/18 at 17:54; Status DC Divalproex Sodium (Depakote Sprinkles) 750 mg TID@0900,1300,2100 PO Last administered on 03/01/18at 12:42; Start 02/02/18 at 21:00; Stop 03/01/18 at 17 :09; Status DC Sertraline HCl (Zoloft) 75 mg DAILY PO Last administered on 03/14/18at 11:33; Start 02/07/18 at 09:00 Olanzapine (ZyPREXA ZYDIS) 2.5 mg PRN Q2HR PRN PO PSYCHOSIS/AGITATION Last administered on 03/06/18at 23:28; Start 02/08/18 at 17:15 Quetiapine Fumarate (SEROquel) 12.5 mg DAILY@0900,1700 PO Last administered on 02/10/18at 17:06; Start 02/09/18 at 17:00; Stop 02/10/18 at 17:26; Status DC Quetiapine Fumarate (SEROquel) 12.5 mg TID@0900,1300,1700 PO Last administered on 02/11/18at 17:28; Start 02/11/18 at 09:00; Stop 02/11/18 at 19:01; Status DC Quetiapine Fumarate (SEROquel) 25 mg TID@0900,1300,1700 PO Last administered on 02/13/18at 13:18; Start 02/12/18 at 09:00; Stop 02/13/18 at 16:58; Status DC Quetiapine Fumarate (SEROquel) 37.5 mg TID@0900,1300,1700 PO Last administered on 02/20/18at 12:42; Start 02/13/18 at 17:00; Stop 02/20/18 at 16:36; Status DC Mirtazapine (Remeron) 7.5 mg QHS PO Last administered on 02/22/18at 21:23; Start 02/16/18 at 21:00; Stop 02/23/18 at 12:05; Status DC Quetiapine Fumarate (SEROquel) 50 mg TID@0900,1300,1700 PO Last administered on 02/25/18at 17:24; Start 02/20/18 at 17:00; Stop 02/25/18 at 17:43; Status DC Melatonin 3 mg HS PO Last administered on 03/13/18at 20:14; Start 02/21/18 at 21:00 Mirtazapine (Remeron) 15 mg QHS PO Last administered on 03/13/18at 20:14; Start 02/23/18 at 21:00 Buspirone HCl (Buspar) 5 mg DAILY@0900,1700 PO Last administered on 02/28/18at 08:28; Start 02/23/18 at 17:00; Stop 02/28/18 at 17:07; Status DC Risperidone (RisperDAL) 0.25 mg TID@0900,1300,1700 PO Last administered on at 16:47; Start 02/26/18 at 09:00 Clindamycin HCl (Cleocin) 300 mg Q6HRS PO Last administered on 02/26/18at 17:55 ; Start 02/26/18 at 12:00; Stop 02/26/18 at 22:35; Status DC Lactobacillus Rhamnosus (Culturelle) 1 cap BID PO Last administered on at 20:37; Start 02/26/18 at 12:00; Stop 03/02/18 at 01:27; Status DC Clindamycin HCl (Cleocin) 300 mg Q6HRS PO Last administered on 03/01/18at 12:42 ; Start 02/27/18 at 00:00; Stop 03/01/18 at 16:32; Status DC Buspirone HCl (Buspar) 10 mg DAILY@0900,1700 PO Last administered on at 17:31; Start 03/01/18 at 09:00; Stop 03/13/18 at 18:31; Status DC Divalproex Sodium (Depakote Sprinkles) 750 mg BID@1300,2100 PO Last administered on 03/14/18at 14:03; Start 03/01/18 at 21:00 Divalproex Sodium (Depakote Sprinkles) 1,000 mg DAILY PO Last administered on 03/14/18at 11:32; Start 03/02/18 at 09:00 Metoprolol Tartrate (Lopressor) 12.5 mg BID PO Last administered on 03/14/18at 11:33; Start 03/12/18 at 21:00 Buspirone HCl (Buspar) 10 mg QID PO Last administered on 03/14/18at 16:47; Start 03/13/18 at 21:00 Active Scripts Active Reported Clonidine Hcl 0.1 Mg Tablet 0.1 Mg PO HS Buspirone Hcl 10 Mg Tablet 10 Mg PO [id number] Melatonin 3 Mg Tab.rapdis 3 Mg PO HS Depakote Sprinkle (Divalproex Sodium) 125 Mg Cap.sprink 1,000 Mg PO DAILY Risperdal (Risperidone) 0.25 Mg Tablet 0.25 Mg PO DAILY@0900,1300,1700 Depakote Sprinkle (Divalproex Sodium) 125 Mg Cap.sprink 750 Mg PO [id number] Tylenol (Acetaminophen) 325 Mg Tablet 650 Mg PO PRN Q6HRS PRN Bengay Ultra Strength Crm (Methyl Salicylate/Menth/Camph) 57 Gm Cream..g. 57 Gm TP PRN QID PRN Mag-Al Plus Suspension (Mag Hydrox/Al Hydrox/Simeth) 30 Ml Oral.susp 15 Ml PO PRN QID PRN Milk Of Magnesia (Magnesium Hydroxide) 2,400 Mg/10 Ml Oral.susp 2,400 Mg PO PRN QHS PRN Zyprexa Zydis (Olanzapine) 5 Mg Tab.rapdis 2.5 Mg PO PRN Q2HR PRN Seroquel (Quetiapine Fumarate) 25 Mg Tablet 37.5 Mg PO TIDAFTMEAL Zoloft (Sertraline Hcl) 50 Mg Tablet 75 Mg PO DAILY Remeron (Mirtazapine) 15 Mg Tablet 7.5 Mg PO HS Haldol (Haloperidol Lactate) 5 Mg/1 Ml Ampul 5 Mg IM PRN Q6HRS PRN Docusate Sodium 100 Mg Capsule 100 Mg PO DAILY Trazodone Hcl 100 Mg Tablet 250 Mg PO QHS Loxapine (Loxapine Succinate) 10 Mg Capsule 10 Mg PO TID Ativan (Lorazepam) 1 Mg Tablet 0.5 Mg PO PRN Q4HRS PRN Ativan (Lorazepam) 2 Mg/1 Ml Vial 0.25 Ml IM PRN Q4HRS PRN Levothyroxine Sodium 25 Mcg Tablet 25 Mcg PO DAILYAC Divalproex Sodium Er (Divalproex Sodium) 500 Mg Tab.er.24h 1,500 Mg PO QHS Divalproex Sodium Er (Divalproex Sodium) 500 Mg Tab.er.24h 750 Mg PO DAILY Thiamine Hcl 100 Mg Tablet 100 Mg PO DAILY Multivitamins (Multivitamin) 1 Each Tablet 1 Each PO NICODERM CQ 14mg (Nicotine) 1 Each Patch.td24 1 Patch TD DAILY Metoprolol Tartrate 25 Mg Tablet 25 Mg PO BID Fludrocortisone Acetate 0.1 Mg Tablet 0.1 Mg PO DAILY Clonidine Hcl 0.1 Mg Tablet 0.1 Mg PO QHS Aspirin 325 Mg Tablet 325 Mg PO DAILY I have reviewed the current psychotropics carefully including drug interactions. Risk benefit ratio favors no change other than as noted in my dictated progress note. 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
[2018-03-14] MEDS: traZODone 100 MG TABLET. PO SCH (19:43)
[2018-03-14] MEDS: MIRTAZAPINE 15 MG TABLET PO SCH (19:45)
[2018-03-14] MEDS: cloNIDine HCL 0.1 MG TABLET PO SCH (19:45)
[2018-03-14] MEDS: MELATONIN 3 MG TABLET PO SCH (19:47)
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
[2018-03-15] MEDS: LEVOTHYROXINE 25 MCG TABLET. PO SCH (04:50)
[2018-03-15 05:49] VITALS: BP 140/77
[2018-03-15] MEDS: ASPIRIN 325 MG TABLET PO SCH (10:08)
[2018-03-15] MEDS: FLUDROCORTISONE 0.1 MG TABLET PO SCH (10:08)
[2018-03-15] MEDS: risperiDONE 0.25 MG TABLET. PO SCH (10:08)
[2018-03-15] MEDS: busPIRone 10 MG TABLET. PO SCH (10:08)
[2018-03-15] MEDS: DOCUSATE SODIUM 100 MG CAPSULE PO SCH (10:09)
[2018-03-15] MEDS: THIAMINE 100 MG TABLET. PO SCH (10:09)
[2018-03-15 10:10] VITALS: BP 140/77
[2018-03-15] MEDS: METOPROLOL TART IMMED RELEASE 25 MG TABLET PO SCH (10:10)
[2018-03-15] MEDS: SERTRALINE 50 MG TABLET. PO SCH (10:12)
[2018-03-15] MEDS: DIVALPROEX 125 MG CAP.SPRINK PO SCH (10:13)
--- NOTE | 2018-03-15 17:14 | PDOC ---
Exam Note: Dionicio Note: Please also refer to the separate dictated note~for this date of service dictated separately.~Patient seen individually. Discussed the patient with Nursing staff reviewed the chart.~Reviewed interim history and current functioning. Reviewed vital signs,~Labs/ Radiology~and current medications noted below. Continue current treatment with the changes noted in the dictated addendum note Assessment: Vital Signs: Vital Signs Date Time Temp Pulse Resp B/P (MAP) Pulse Ox O2 Delivery O2 Flow Rate FiO2 03/15/18 10:10 51 140/77 03/15/18 05:49 97.4 20 03/14/18 15:38 94 Room Air I&O Intake and Output 03/15/18 07:00 Intake Total 960 ml Balance 960 ml Intake Oral 960 ml # Voids 1 # Bowel Movements 2 Current Medications: Meds: Current Medications Acetaminophen (Tylenol) 650 mg PRN Q6HRS PRN PO PAIN / TEMP Last administered on 02/26/18at 10:29; Start 02/01/18 at 12:15; Stop 03/15/18 at 11:59; Status DC Multi-Ingredient Ointment (Analgesic [place]) 1 jennifer PRN QID PRN TP MUSCLE PAIN; Start 02/01/18 at 12:15; Stop 03/15/18 at 11:59; Status DC Al Hydroxide/Mg Hydroxide (Mylanta Plus Xs) 15 ml PRN AFTMEALHC PRN PO DYSPEPSIA; Start 02/01/18 at 12:15; Stop 03/15/18 at 11:59; Status DC Magnesium Hydroxide (Milk Of Magnesia) 2,400 mg PRN QHS PRN PO CONSTIPATION Last administered on 02/13/18at 21:08; Start 02/01/18 at 12:15; Stop 03/15/18 at 11:59; Status DC Influenza Virus Vaccine (Afluria Trivalent [id number] Syringe) 0.5 ml ONCE ONCE VAX IM Last administered on 02/02/18at 10:11; Start 02/02/18 at 09:00; Stop 02/02/18 at 09:01; Status DC Aspirin (Davi Aspirin) 325 mg DAILY PO Last administered on 03/15/18at 10:08; Start 02/02/18 at 09:00; Stop 03/15/18 at 11:59; Status DC Clonidine HCl (Catapres) 0.1 mg QHS PO Last administered on 03/14/18at 19:45; Start 02/01/18 at 21:00; Stop 03/15/18 at 11:59; Status DC Fludrocortisone Acetate (Florinef) 0.1 mg DAILY PO Last administered on at 10:08; Start 02/02/18 at 09:00; Stop 03/15/18 at 11:59; Status DC Lorazepam (Ativan) 0.5 mg PRN Q4HRS PRN PO ANXIETY / AGITATION Last administered on 02/02/18at 21:32; Start 02/01/18 at 13:30; Stop 02/06/18 at 18 :59; Status DC Metoprolol Tartrate (Lopressor) 25 mg BID PO Last administered on 03/12/18at 07 :27; Start 02/01/18 at 21:00; Stop 03/12/18 at 15:43; Status DC Divalproex Sodium (Depakote Er) 1,500 mg QHS PO Last administered on at 20:16; Start 02/01/18 at 21:00; Stop 02/02/18 at 18:01; Status DC Divalproex Sodium (Depakote Er) 750 mg DAILY PO Last administered on at 09:02; Start 02/02/18 at 09:00; Stop 02/02/18 at 18:01; Status DC Docusate Sodium (Colace) 100 mg DAILY PO Last administered on 03/15/18at 10:09 ; Start 02/02/18 at 09:00; Stop 03/15/18 at 11:59; Status DC Levothyroxine Sodium (Synthroid) 25 mcg DAILY06 PO Last administered on at 04:50; Start 02/02/18 at 06:00; Stop 03/15/18 at 11:59; Status DC Loxapine Succinate (Loxitane) 10 mg TID PO Last administered on 02/02/18at 08: 58; Start 02/01/18 at 14:00; Stop 02/02/18 at 11:12; Status DC Nicotine (Nicoderm Cq 14mg) 1 patch DAILY TD ; Start 02/02/18 at 09:00; Stop 02/02/18 at 18:01; Status DC Thiamine HCl (Vitamin B-1) 100 mg DAILY PO Last administered on 03/15/18at 10: 09; Start 02/02/18 at 09:00; Stop 03/15/18 at 11:59; Status DC Trazodone HCl (Desyrel) 250 mg QHS PO Last administered on 03/14/18at 19:43; Start 02/01/18 at 21:00; Stop 03/15/18 at 11:59; Status DC Loxapine Succinate (Loxitane) 10 mg BID PO Last administered on 02/03/18at 19: 24; Start 02/02/18 at 21:00; Stop 02/04/18 at 08:00; Status DC Sertraline HCl (Zoloft) 50 mg DAILY PO Last administered on 02/06/18at 07:26; Start 02/03/18 at 09:00; Stop 02/06/18 at 17:54; Status DC Divalproex Sodium (Depakote Sprinkles) 750 mg TID@0900,1300,2100 PO Last administered on 03/01/18at 12:42; Start 02/02/18 at 21:00; Stop 03/01/18 at 17 :09; Status DC Sertraline HCl (Zoloft) 75 mg DAILY PO Last administered on 03/15/18at 10:12; Start 02/07/18 at 09:00; Stop 03/15/18 at 11:59; Status DC Olanzapine (ZyPREXA ZYDIS) 2.5 mg PRN Q2HR PRN PO PSYCHOSIS/AGITATION Last administered on 03/15/18at 10:11; Start 02/08/18 at 17:15; Stop 03/15/18 at 11 :59; Status DC Quetiapine Fumarate (SEROquel) 12.5 mg DAILY@0900,1700 PO Last administered on 02/10/18at 17:06; Start 02/09/18 at 17:00; Stop 02/10/18 at 17:26; Status DC Quetiapine Fumarate (SEROquel) 12.5 mg TID@0900,1300,1700 PO Last administered on 02/11/18at 17:28; Start 02/11/18 at 09:00; Stop 02/11/18 at 19:01; Status DC Quetiapine Fumarate (SEROquel) 25 mg TID@0900,1300,1700 PO Last administered on 02/13/18at 13:18; Start 02/12/18 at 09:00; Stop 02/13/18 at 16:58; Status DC Quetiapine Fumarate (SEROquel) 37.5 mg TID@0900,1300,1700 PO Last administered on 02/20/18at 12:42; Start 02/13/18 at 17:00; Stop 02/20/18 at 16:36; Status DC Mirtazapine (Remeron) 7.5 mg QHS PO Last administered on 02/22/18at 21:23; Start 02/16/18 at 21:00; Stop 02/23/18 at 12:05; Status DC Quetiapine Fumarate (SEROquel) 50 mg TID@0900,1300,1700 PO Last administered on 02/25/18at 17:24; Start 02/20/18 at 17:00; Stop 02/25/18 at 17:43; Status DC Melatonin 3 mg HS PO Last administered on 03/14/18at 19:47; Start 02/21/18 at 21:00; Stop 03/15/18 at 11:59; Status DC Mirtazapine (Remeron) 15 mg QHS PO Last administered on 03/14/18at 19:45; Start 02/23/18 at 21:00; Stop 03/15/18 at 11:59; Status DC Buspirone HCl (Buspar) 5 mg DAILY@0900,1700 PO Last administered on 02/28/18at 08:28; Start 02/23/18 at 17:00; Stop 02/28/18 at 17:07; Status DC Risperidone (RisperDAL) 0.25 mg TID@0900,1300,1700 PO Last administered on at 10:08; Start 02/26/18 at 09:00; Stop 03/15/18 at 11:59; Status DC Clindamycin HCl (Cleocin) 300 mg Q6HRS PO Last administered on 02/26/18at 17:55 ; Start 02/26/18 at 12:00; Stop 02/26/18 at 22:35; Status DC Lactobacillus Rhamnosus (Culturelle) 1 cap BID PO Last administered on at 20:37; Start 02/26/18 at 12:00; Stop 03/02/18 at 01:27; Status DC Clindamycin HCl (Cleocin) 300 mg Q6HRS PO Last administered on 03/01/18at 12:42 ; Start 02/27/18 at 00:00; Stop 03/01/18 at 16:32; Status DC Buspirone HCl (Buspar) 10 mg DAILY@0900,1700 PO Last administered on at 17:31; Start 03/01/18 at 09:00; Stop 03/13/18 at 18:31; Status DC Divalproex Sodium (Depakote Sprinkles) 750 mg BID@1300,2100 PO Last administered on 03/14/18at 19:45; Start 03/01/18 at 21:00; Stop 03/15/18 at 11 :59; Status DC Divalproex Sodium (Depakote Sprinkles) 1,000 mg DAILY PO Last administered on 03/15/18at 10:13; Start 03/02/18 at 09:00; Stop 03/15/18 at 11:59; Status DC Metoprolol Tartrate (Lopressor) 12.5 mg BID PO Last administered on 03/15/18at 10:10; Start 03/12/18 at 21:00; Stop 03/15/18 at 11:59; Status DC Buspirone HCl (Buspar) 10 mg QID PO Last administered on 03/15/18at 10:08; Start 03/13/18 at 21:00; Stop 03/15/18 at 11:59; Status DC Active Scripts Active Reported Clonidine Hcl 0.1 Mg Tablet 0.1 Mg PO HS Buspirone Hcl 10 Mg Tablet 10 Mg PO QID Melatonin 3 Mg Tab.rapdis 3 Mg PO HS Depakote Sprinkle (Divalproex Sodium) 125 Mg Cap.sprink 1,000 Mg PO DAILY Risperdal (Risperidone) 0.25 Mg Tablet 0.25 Mg PO DAILY@0900,1300,1700 Depakote Sprinkle (Divalproex Sodium) 125 Mg Cap.sprink 750 Mg PO [id number] Tylenol (Acetaminophen) 325 Mg Tablet 650 Mg PO PRN Q6HRS PRN [place] Ultra Strength Crm (Methyl Salicylate/Menth/Camph) 57 Gm Cream..g. 1 Jennifer TP PRN QID PRN Mag-Al Plus Suspension (Mag Hydrox/Al Hydrox/Simeth) 30 Ml Oral.susp 15 Ml PO PRN QID PRN Milk Of Magnesia (Magnesium Hydroxide) 2,400 Mg/10 Ml Oral.susp 2,400 Mg PO PRN QHS PRN Zyprexa Zydis (Olanzapine) 5 Mg Tab.rapdis 2.5 Mg PO PRN Q2HR PRN Zoloft (Sertraline Hcl) 50 Mg Tablet 75 Mg PO DAILY Remeron (Mirtazapine) 15 Mg Tablet 15 Mg PO HS Docusate Sodium 100 Mg Capsule 100 Mg PO DAILY Trazodone Hcl 100 Mg Tablet 250 Mg PO QHS Levothyroxine Sodium 25 Mcg Tablet 25 Mcg PO DAILYAC Thiamine Hcl 100 Mg Tablet 100 Mg PO DAILY Multivitamins (Multivitamin) 1 Each Tablet 1 Each PO Metoprolol Tartrate 25 Mg Tablet 12.5 Mg PO BID Fludrocortisone Acetate 0.1 Mg Tablet 0.1 Mg PO DAILY Aspirin 325 Mg Tablet 325 Mg PO DAILY I have reviewed the current psychotropics carefully including drug interactions. Risk benefit ratio favors no change other than as noted in my dictated progress note. Diagnosis: Problems: (1) Impulse control disorder (2) Dementia associated with alcoholism with behavioral disturbance (3) Mixed Alzheimer's and vascular dementia with behavior disturbances (4) Major neurocognitive disorder, due to vascular disease, with behavioral disturbance, mild (5) Anxiety disorder AALIYAH MOORE MD Mar 15, 2018 17:14
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
== END 2018-03-15 10:50 | DRG 57 ==
LOC: ER 10:30 → GEROPSY 12:03
PROVIDERS: ADMIT Psychiatry & Neurology Psychiatry; ATTEND Psychiatry & Neurology Psychiatry
DX: G30.9 Alzheimer's disease, unspecified (principal); F01.51 Vascular dementia, unspecified severity, with behavioral disturbance; F02.81 Dementia in other diseases classified elsewhere, unspecified severity, with behavioral disturbance; F10.27 Alcohol dependence with alcohol-induced persisting dementia; L03.114 Cellulitis of left upper limb; K59.09 Other constipation; F17.200 Nicotine dependence, unspecified, uncomplicated; D64.9 Anemia, unspecified; S41.112A Laceration without foreign body of left upper arm, initial encounter; E03.9 Hypothyroidism, unspecified; F41.9 Anxiety disorder, unspecified; F32.9 Major depressive disorder, single episode, unspecified; F63.9 Impulse disorder, unspecified; G62.9 Polyneuropathy, unspecified; I25.10 Atherosclerotic heart disease of native coronary artery without angina pectoris; I10 Essential (primary) hypertension; Y04.0XXA Assault by unarmed brawl or fight, initial encounter; Y92.238 Other place in hospital as the place of occurrence of the external cause; Y93.89 Activity, other specified; Y99.8 Other external cause status; Z79.899 Other long term (current) drug therapy; Z23 Encounter for immunization
CPT/HCPCS: 36415; 80048; 80053; 80061; 80164; 81001; 82306; 82607; 83036; 83540; 83550; 83735; 84436; 84443; 84480; 85025; 86592; 90471; 90756; 93005; 93970; Q2035